=== PATIENT | male | born 1930 | race Caucasian/White ===

== ENCOUNTER 2017-11-05 12:40 | Inpatient (IN) | payer OTHER, MEDICARE ==
--- NOTE | 2017-11-05 13:19 | PDOC ---
History of Present Illness - General History Source: Family Exam Limitations: Dementia - History of Present Illness Timing/Duration: other Associated Symptoms: reports: cough, fever/chills, loss of appetite. denies: nausea/vomiting <Brendon Hopper - Last Filed: 11/05/17 15:41> <Amina Pina - Last Filed: 11/05/17 15:56> - General Chief Complaint: Loss of Appetite Stated Complaint: WEAKNESS Time Seen by Provider: 11/05/17 12:45 Past History - Past Medical History Cardiac Disorders: Yes (triple bypass) CVA: Yes (right sided residule weakness) COPD: No Diabetes: Yes HTN: Yes Hypercholesterolemia: Yes - Surgical History Cardiac Surgery: Yes (triple bypass) - Immunization History Immunization Up to Date: Yes - Suicide/Smoking/Psychosocial Hx Smoking History: Former smoker Have you smoked in the past 12 months: No Information on smoking cessation initiated: No Hx Alcohol Use: No Drug/Substance Use Hx: No <Brendon Hopper - Last Filed: 11/05/17 15:41> <Amina Pina - Last Filed: 11/05/17 15:56> - Past Medical History Allergies/Adverse Reactions: Allergies Allergy/AdvReac Type Severity Reaction Status Date / Time No Known Allergies Allergy Verified 11/05/17 12:45 Home Medications: Ambulatory Orders Aspirin [ASA -] 81 mg PO DAILY 11/05/17 Finasteride [Proscar -] 5 mg PO DAILY 11/05/17 Levofloxacin [Levaquin] 500 mg PO DAILY 11/05/17 Metformin HCl 500 mg PO BID 11/05/17 Metoprolol Tartrate 25 mg PO BID 11/05/17 Simvastatin 40 mg PO HS 11/05/17 Tamsulosin HCl 0.4 mg PO DAILY 11/05/17 Review of Systems - Review of Systems Able to Perform ROS?: No Is the patient limited Hebrew proficient: Yes Respiratory: Yes: Cough <Brendon Hopper - Last Filed: 11/05/17 15:41> *Physical Exam - Vital Signs Last Vital Signs Temp Pulse Resp BP Pulse Ox 97.7 F 94 H 20 110/59 93 L 11/05/17 12:45 11/05/17 12:45 11/05/17 12:45 11/05/17 12:45 11/05/17 12:45 - Physical Exam General Appearance: Yes: Appropriately Dressed. No: Apparent Distress HEENT: positive: Normal Voice Neck: positive: Supple Respiratory/Chest: positive: Lungs Clear, Normal Breath Sounds. negative: Respiratory Distress Cardiovascular: positive: Regular Rate, S1, S2 Gastrointestinal/Abdominal: positive: Soft. negative: Tender Extremity: negative: Pedal Edema Integumentary: positive: Dry, Warm, Other (stage 2 ulcer to gluteal cleft w/ surrounding erythema) Neurologic: positive: Alert, Normal Mood/Affect, Other (R sided weakness ( baseline since CVA), L sided strength intact) <Helene HopperMadelineCrystal - Last Filed: 11/05/17 15:41> - Vital Signs Last Vital Signs Temp Pulse Resp BP Pulse Ox 99.1 F 94 H 20 110/59 93 L 11/05/17 14:08 11/05/17 12:45 11/05/17 12:45 11/05/17 12:45 11/05/17 12:45 <Amina Pina - Last Filed: 11/05/17 15:56> ED Treatment Course - LABORATORY CBC & Chemistry Diagram: 11/05/17 13:15 11/05/17 13:15 - RADIOLOGY Radiology Studies Ordered: Category Date Time Status CHEST X-RAY PORTABLE* [RAD] Stat Radiology 11/05/17 13:14 Ordered <Brendon Hopper - Last Filed: 11/05/17 15:41> - LABORATORY CBC & Chemistry Diagram: 11/05/17 13:15 11/05/17 13:15 - ADDITIONAL ORDERS Additional order review: Laboratory Results 11/05/17 11/05/17 13:16 13:15 Sodium 130 L Potassium 5.8 H Chloride 97 L Carbon Dioxide 22 Anion Gap 11 BUN 99 H Creatinine 2.9 H Creat Clearance w eGFR 20.79 Random Glucose 190 H Calcium 9.9 Total Bilirubin 0.6 AST 10 L ALT 15 Alkaline Phosphatase 102 Creatine Kinase 21 L Troponin I < 0.02 Total Protein 8.1 Albumin 3.2 L Lipase 436 H Urine Color Dkyellow Urine Appearance Turbid Urine pH 5.0 Ur Specific Daniel 1.010 Urine Protein 2+ H Urine Glucose (UA) Negative Urine Ketones Negative Urine Blood 2+ H Urine Nitrite Negative Urine Bilirubin Negative Urine Urobilinogen Negative Ur Leukocyte Esterase 3+ H Urine WBC (Auto) 1760 Urine RBC (Auto) 13 11/05/17 13:15 RBC 5.43 MCV 78.9 L MCHC 32.6 RDW 16.7 H MPV 9.6 Neutrophils % 70.5 Lymphocytes % 19.3 Monocytes % 7.8 Eosinophils % 1.6 Basophils % 0.8 - Medications Given in the ED: ED Medications Discontinued Medications Generic Name Dose Route Start Last Admin Trade Name Christophe PRN Reason Stop Dose Admin Dextrose 25 gm 11/05/17 15:03 11/05/17 15:35 D50w (Vial) - IVPUSH 11/05/17 15:04 25 gm NOW ONE Administration Sodium Chloride 500 mls @ 500 mls/hr 11/05/17 13:21 11/05/17 14:20 Normal Saline - IV 11/05/17 14:20 500 mls/hr ASDIR STA Administration Sodium Chloride 500 mls @ 500 mls/hr 11/05/17 14:20 11/05/17 15:35 Normal Saline - IV 11/05/17 15:19 500 mls/hr ASDIR STA Administration Clindamycin Phosphate 600 mg in 50 mls @ 100 mls/hr 11/05/17 14:21 11/05/17 15:36 Cleocin 600 Mg Premix Ivpb - IVPB 11/05/17 14:50 Not Given ONCE ONE Ceftriaxone Sodium 1 gm/ 50 mls @ 100 mls/hr 11/05/17 14:56 11/05/17 15:35 Dextrose IVPB 11/05/17 15:25 100 mls/hr ONCE ONE Administration Sodium Bicarbonate 50 meq 11/05/17 15:04 11/05/17 15:36 Sodium Bicarbonate 8.4% - IV 11/05/17 15:05 50 meq ONCE ONE Administration Sodium Polystyrene Sulfonate 30 gm 11/05/17 14:20 11/05/17 15:00 Kayexalate - PO 11/05/17 14:21 30 gm ONCE ONE Administration <Amina Pina - Last Filed: 11/05/17 15:56> Medical Decision Making - Medical Decision Making 11/05/17 13:14 87-year-old male history of CVA w/ L sided weakness and nonverbal, hypertension , hyperlipidemia, DM, and CABG, sacral ulcer, brought in by daughter for anorexia. As per daughter, pt resides alone with 24-hour aids who has noticed a gradual decline in pt's appetite. States since Wednesday, patient has not eaten or drank anything. Daughter also noticed slight cough at home. Patient unable to give much history See exam Anorexia Pt unable to give hx 2/2 CVA/nonverbal R/o cardiac vs infection (cellulitis given surrounding erythema to sacral ulcer vs PNA given cough vs uti) vs metabolic, less likely neuro -IVF -ekg -cxr -labs/ua -anticipate admission 11/05/17 13:20 11/05/17 14:21 WBC 15. Source unclear at this time. Pending UA and Chest X-Ray. ARF on labs w / Cr of 2.2 and K of 5.8. No h/o renal disease per family, no old cr on file to compare. EKG unremarkable as d/w ED attg. Recommends giving hyper K cocktail except for calcium. Will admit at this time 11/05/17 15:05 Positive UTI on labs, will treat. No prior sensitivities on file. Ucx sent off today. CXR negative. Case d/w Dr Varela and pt admitted <Brendon Hopper - Last Filed: 11/05/17 15:41> *DC/Admit/Observation/Transfer - Discharge Dispostion Admit: Yes <Brendon Hopper - Last Filed: 11/05/17 15:41> - Attestations Physician Attestion: I reviewed the case with the mid-level practitioner and agree with the mid- level practitioner's assessment, diagnosis and disposition. <Amina Pina - Last Filed: 11/05/17 15:56> Diagnosis at time of Disposition: Dehydration, Hyperkalemia ARF (acute renal failure) Qualifiers: Acute renal failure type: unspecified Qualified Code(s): N17.9 - Acute kidney failure, unspecified UTI (urinary tract infection) Qualifiers: Urinary tract infection type: acute cystitis Hematuria presence: without hematuria Qualified Code(s): N30.00 - Acute cystitis without hematuria - Discharge Dispostion Condition at time of disposition: Fair
[2017-11-05] MEDS ORDERED: SODIUM CHLORIDE 500 ML IV STA ×2 (13:21→14:20)
[2017-11-05 13:32] LABS: BASO % 0.8 % (0-2.0); EOS % 1.6 % (0-4.5); HEMATOCRIT 42.8 % (35.4-49); LYMPH % 19.3 % (8-40); MCH 25.7 pg (25.7-33.7); MCHC 32.6 g/dl (32.0-35.9); MEAN CELL VOLUME 78.9 fl (80-96); MEAN PLT VOLUME 9.6 fl (7.5-11.1); MONO % 7.8 % (3.8-10.2); NEUT % 70.5 % (42.8-82.8); PLATELET COUNT 334 K/MM3 (134-434); RBC 5.43 M/mm3 (4.00-5.60); RDW 16.7 % (11.9-15.9)
[2017-11-05 14:02] LABS: ALBUMIN 3.2 g/dl (3.4-5.0); ALK PHOS 102 U/L (45-117); ANION GAP 11 (8-16); BILIRUBIN,TOTAL 0.6 mg/dL (0.2-1.0); BLOOD UREA NITROGEN 99 mg/dL (7-18); CALCIUM 9.9 mg/dL (8.5-10.1); CHLORIDE 97 mmol/L (98-107); CO2 22 mmol/L (21-32); CREATININE 2.9 mg/dL (0.7-1.3); GLUCOSE,RANDOM 190 mg/dL (74-106); POTASSIUM 5.8 mmol/L (3.5-5.1); SGOT/AST 10 U/L (15-37); SGPT/ALT 15 U/L (12-78); SODIUM 130 mmol/L (136-145); TOT PROT 8.1 g/dl (6.4-8.2)
[2017-11-05 14:04] LABS: LIPASE 436 U/L (73-393)
[2017-11-05] MEDS ORDERED: SODIUM POLYSTYRENE SULFONATE 15 GM/60 ML BOTTLE PO ONE (14:20)
[2017-11-05] MEDS ORDERED: CLINDAMYCIN 600MG PREMIX IVPB 600 MG/50 ML BAG IVPB ONE (14:21)
[2017-11-05 14:48] LABS: URINE APPEARANCE TURBID; URINE BILIRUBIN NEGATIVE (NEGATIVE); URINE BLOOD 2+ (NEGATIVE); URINE COLOR DKYELLOW; URINE GLUCOSE (UA) NEGATIVE (NEGATIVE); URINE KETONE NEGATIVE (NEGATIVE); URINE NITRITE NEGATIVE (NEGATIVE); URINE UROBILINOGEN NEGATIVE mg/dL (0.2-1.0)
[2017-11-05 14:51] LABS: URINE LEUK ESTERASE 3+ (NEGATIVE); URINE PROTEIN 2+ (NEGATIVE)
[2017-11-05] MEDS ORDERED: CEFTRIAXONE 1 GM in DEXTROSE 5%-WATER - 50 ML IVPB ONE (14:56)
[2017-11-05] MEDS ORDERED: CEFEPIME 1 GM/100 ML BAG IVPB ONE (15:00)
[2017-11-05] MEDS ORDERED: INSULIN REGULAR HUMAN 100 UNITS/ML *VIAL SQ ONE (15:01)
[2017-11-05] MEDS ORDERED: SODIUM BICARBONATE 8.4% - 50 ML ONE (15:02)
[2017-11-05] MEDS ORDERED: DEXTROSE 50%-WATER - 25 GM/50 ML VIAL ONE (15:02)
[2017-11-05] MEDS ORDERED: SODIUM POLYSTYRENE SULFONATE 15 GM/60 ML BOTTLE ONE (15:02)
[2017-11-05] MEDS ORDERED: DEXTROSE 50%-WATER - 25 GM/50 ML VIAL IVPUSH ONE (15:03)
[2017-11-05] MEDS ORDERED: INSULIN REGULAR HUMAN 100 UNITS/ML *VIAL ONE (15:03)
[2017-11-05] MEDS ORDERED: SODIUM BICARBONATE 8.4% 50 MEQ/50 ML VIAL IV ONE (15:04)
--- NOTE | 2017-11-05 15:24 | HP ---
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 Daughter states pt has stopped eating for 1 week and has had increased fatigue and weakness. Reports weight loss >20lbs over the last few months. She notices him to be disoriented also. Daughter spoke to PCP and levaquin was ordered to treat UTI. However, pt has not taken any doses and or any of his other home medications. Daughter denies any diarrhea, rash, fever/chills, or vomiting. Stage 2 sacral pressure ulcer was identified in ED. 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) Cardiovascular: Yes: CAD, HTN, Hyperlipdemia Renal/: Yes: BPH Musculoskeletal: Yes: Hemiparesis (right) Endocrine: Yes: Diabetes Mellitus - Past Surgical History Past Surgical History: Yes: CABG (2004) - Advance Directives Advance Directives: Yes: DNR (DNI) - Smoking History Smoking history: Former smoker Have you smoked in the past 12 months: No - Alcohol/Substance Use Hx Alcohol Use: No History of Substance Use: reports: None - Social History Usual Living Arrangement: Yes: Alone (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) ADL: Support Services History of Recent Travel: No Home Medications - Allergies Allergies/Adverse Reactions: Allergies Allergy/AdvReac Type Severity Reaction Status Date / Time No Known Allergies Allergy Verified 11/05/17 12:45 - Home Medications Home Medications: Ambulatory Orders Aspirin [ASA -] 81 mg PO DAILY 11/05/17 Finasteride [Proscar -] 5 mg PO DAILY 11/05/17 Levofloxacin [Levaquin] 500 mg PO DAILY 11/05/17 Metformin HCl 500 mg PO BID 11/05/17 Metoprolol Tartrate 25 mg PO BID 11/05/17 Simvastatin 40 mg PO HS 11/05/17 Tamsulosin HCl 0.4 mg PO DAILY 11/05/17 Family Disease History - Family Disease History Family History: Denies Review of Systems Unable to obtain ROS, reason: as per hpi Physical Examination Vital Signs: Vital Signs Temperature 99.1 F 11/05/17 14:08 Pulse Rate 94 H 11/05/17 12:45 Respiratory Rate 20 11/05/17 12:45 Blood Pressure 110/59 11/05/17 12:45 O2 Sat by Pulse Oximetry (%) 93 L 11/05/17 12:45 Constitutional: Yes: No Distress, Calm Cardiovascular: Yes: Regular Rate and Rhythm. No: Gallop, Murmur, Rub Respiratory: Yes: WNL, Regular, CTA Bilaterally, Diminished. No: Rales, Rhonchi , SOB, Stridor, Tachypnea, Wheezes Gastrointestinal: Yes: WNL, Normal Bowel Sounds, Soft. No: Distention, Tenderness Renal/: Yes: Incontinence Edema: No Integumentary: Yes: Pressure Ulcer (stage 2, sacrum) Neurological: Yes: Alert, Aphasia, Confusion, Weakness Psychiatric: Yes: Alert Labs: CBC, BMP 11/05/17 13:15 11/05/17 13:15 Imaging - Results Chest X-ray: Report Reviewed Cat Scan: Report Reviewed Problem List - Problems (1) Sepsis Assessment/Plan: afebrile, tachycardic, hypotensive, leukocytosis, ua positive chest xray neg Ceftriaxone started blood cultures ordered IVF tele monitoring adequate glycemic control Code(s): A41.9 - SEPSIS, UNSPECIFIED ORGANISM Qualifiers: Sepsis type: sepsis due to unspecified organism Qualified Code(s): A41.9 - Sepsis, unspecified organism (2) UTI (urinary tract infection) Assessment/Plan: UA positive ceftriaxone started ivf Code(s): N39.0 - URINARY TRACT INFECTION, SITE NOT SPECIFIED Qualifiers: Urinary tract infection type: acute cystitis Hematuria presence: without hematuria Qualified Code(s): N30.00 - Acute cystitis without hematuria (3) Acute metabolic encephalopathy Assessment/Plan: secondary to UTI/sepsis will treat underlying illness and monitor for improvement Code(s): G93.41 - METABOLIC ENCEPHALOPATHY (4) Hyponatremia Assessment/Plan: secondary to poor po intake x 1 week monitor bmp Code(s): E87.1 - HYPO-OSMOLALITY AND HYPONATREMIA (5) Leukocytosis Assessment/Plan: secondary to uti/sepsis possibly falsely elevated due to dehydration Code(s): D72.829 - ELEVATED WHITE BLOOD CELL COUNT, UNSPECIFIED (6) DM (diabetes mellitus) Assessment/Plan: stable on metformin at home, hold in the setting of rito, inability to take po bgm insulin sliding scale hga1c ordered Code(s): E11.9 - TYPE 2 DIABETES MELLITUS WITHOUT COMPLICATIONS Qualifiers: Diabetes mellitus type: type 2 Diabetes mellitus termite control 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 insulin use: without termite control technician use (7) Dehydration Assessment/Plan: secondary to poor po intake ivf Code(s): E86.0 - DEHYDRATION (8) RITO (acute kidney injury) Assessment/Plan: secondary to sepsis, dehydration IVF Urine Na/Creatinine ordered monitor Code(s): N17.9 - ACUTE KIDNEY FAILURE, UNSPECIFIED (9) Hyperkalemia Assessment/Plan: K5.8, peaked t wave on ekg, secondary to rito treated in ED with insulin, bicarb, kayex will monitor Code(s): E87.5 - HYPERKALEMIA (10) BPH (benign prostatic hyperplasia) Assessment/Plan: stable on flomax and finasteride at home will restart once taking po Code(s): N40.0 - BENIGN PROSTATIC HYPERPLASIA WITHOUT LOWER URINRY TRACT SYMP (11) Hemiparesis Assessment/Plan: right sided, chronic no acute changes, head ct neg PT as tolerated Code(s): G81.90 - HEMIPLEGIA, UNSPECIFIED AFFECTING UNSPECIFIED SIDE Qualifiers: Cerebrovascular disease type: nontraumatic intracerebral hemorrhage (12) CAD (coronary artery disease) Assessment/Plan: s/p CABG-2004 aspirin, atorvastatin at home restart po meds once speech eval and when pt takes po Code(s): I25.10 - ATHSCL HEART DISEASE OF [place] CORONARY ARTERY W/O ANG PCTRS Qualifiers: Coronary Disease-Associated Artery/Lesion type: bypass graft [place] vs. transplanted heart: [place] heart Associated angina: without angina Qualified Code(s): I25.810 - Atherosclerosis of coronary artery bypass graft(s) without angina pectoris (13) HTN (hypertension) Assessment/Plan: stable on metoprolol and amlodipine at home hold meds in the setting of sepsis Code(s): I10 - ESSENTIAL (PRIMARY) HYPERTENSION Qualifiers: Hypertension type: essential hypertension Qualified Code(s): I10 - Essential (primary) hypertension
[2017-11-05] MEDS ORDERED: INSULIN REGULAR HUMAN 100 UNITS/ML *VIAL IVPUSH ONE (15:40)
[2017-11-05] MEDS ORDERED: SODIUM CHLORIDE 1,000 ML IV SCH (16:30)
[2017-11-05] MEDS: INSULIN SLIDING SCALE (NOVOLOG) 1 VIAL SQ SCH (18:10)
[2017-11-05] MEDS: SODIUM CHLORIDE 1,000 ML IV SCH (18:11)
[2017-11-05] MEDS ORDERED: METOPROLOL TARTRATE 50 MG TABLET (FP) PO SCH (22:00)
[2017-11-05] MEDS: HEPARIN NA (PORCINE) 5,000 UNITS/ML 1ML VIAL SQ SCH (23:11)
[2017-11-06] MEDS: INSULIN SLIDING SCALE (NOVOLOG) 1 VIAL SQ SCH ×3 (06:35→16:44)
[2017-11-06] MEDS: SODIUM CHLORIDE 1,000 ML IV SCH ×2 (06:35→17:12)
[2017-11-06 08:03] LABS: BASO % 0.4 % (0-2.0); EOS % 2.6 % (0-4.5); HEMATOCRIT 39.8 % (35.4-49); HEMOGLOBIN 12.8 GM/dL (11.7-16.9); LYMPH % 14.3 % (8-40); MCH 25.4 pg (25.7-33.7); MCHC 32.1 g/dl (32.0-35.9); MEAN CELL VOLUME 79.3 fl (80-96); MEAN PLT VOLUME 9.8 fl (7.5-11.1); MONO % 7.5 % (3.8-10.2); NEUT % 75.2 % (42.8-82.8); PLATELET COUNT 248 K/MM3 (134-434); RBC 5.02 M/mm3 (4.00-5.60); RDW 16.5 % (11.9-15.9); WHITE BLOOD COUNT 11.7 K/mm3 (4.0-10.0)
[2017-11-06 08:22] LABS: ALBUMIN 2.9 g/dl (3.4-5.0); ANION GAP 9 (8-16); BLOOD UREA NITROGEN 83 mg/dL (7-18); CALCIUM 8.6 mg/dL (8.5-10.1); CHLORIDE 106 mmol/L (98-107); CO2 27 mmol/L (21-32); GLUCOSE,RANDOM 101 mg/dL (74-106); MAGNESIUM 2.4 mg/dL (1.8-2.4); POTASSIUM 4.6 mmol/L (3.5-5.1); SGOT/AST 9 U/L (15-37); SODIUM 142 mmol/L (136-145)
[2017-11-06 08:25] LABS: ALK PHOS 86 U/L (45-117); BILIRUBIN,TOTAL 0.4 mg/dL (0.2-1.0); CHOLESTEROL 172 mg/dL (50-200); CREATININE 2.5 mg/dL (0.7-1.3); HDL CHOLESTEROL 29 mg/dL (40-60); LDL CHOLESTEROL (ONLY SJRH) 106 mg/dL (5-100); PHOSPHOROUS 4.8 mg/dL (2.5-4.9); SGPT/ALT 12 U/L (12-78); TOT PROT 6.5 g/dl (6.4-8.2); TRIGLYCERIDES 210 mg/dL (35-160)
[2017-11-06] MEDS ORDERED: TAMSULOSIN HCL 0.4 MG CAP.ER.24H (FP) PO SCH (08:30)
--- NOTE | 2017-11-06 08:37 | PN ---
Progress Note, Physician Chief Complaint: ID Full note dictated Alert able to answer questions No complaints - Current Medication List Current Medications: Active Medications Heparin Sodium (Porcine) (Heparin -) 5,000 unit SQ BID [facility] Last Admin: 11/05/17 23:11 Dose: 5,000 unit CEFTRIAXONE 1 G/50 ML PREMIX (Ceftriaxone 1 Gm-D5w Bag) 50 mls @ 100 mls/hr IVPB DAILY EJ Sodium Chloride (Normal Saline -) 1,000 mls @ 83 mls/hr IV ASDIR [facility] Last Admin: 11/06/17 06:35 Dose: 83 mls/hr Insulin Aspart (Novolog Vial Sliding Scale -) 1 vial SQ TIDAC [facility] PRN Reason: Protocol Last Admin: 11/06/17 06:35 Dose: Not Given - Objective Vital Signs: Vital Signs Temperature 97.7 F 11/06/17 06:29 Pulse Rate 80 11/06/17 06:29 Respiratory Rate 18 11/06/17 06:29 Blood Pressure 99/42 11/06/17 06:29 O2 Sat by Pulse Oximetry (%) 99 11/05/17 21:00 Constitutional: Yes: No Distress Neck: Yes: WNL, Supple Cardiovascular: Yes: Regular Rate and Rhythm, S1, S2. No: Murmur Respiratory: Yes: WNL, Regular, CTA Bilaterally Gastrointestinal: Yes: Soft. 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: without local intermodal truck driver use (4) UTI (urinary tract infection) Code(s): N39.0 - URINARY TRACT INFECTION, SITE NOT SPECIFIED Qualifiers: Urinary tract infection type: acute cystitis Hematuria presence: without hematuria Qualified Code(s): N30.00 - Acute cystitis without hematuria Assessment/Plan Microbiology Laboratory Tests 11/05/17 11/05/17 11/05/17 13:15 13:15 13:16 WBC 15.0 H Hgb 14.0 Plt Count 334 BUN 99 H Creatinine 2.9 H Creat Clearance w eGFR 20.79 Total Bilirubin 0.6 AST 10 L ALT 15 Alkaline Phosphatase 102 Ur Leukocyte Esterase 3+ H Urine WBC (Auto) 1760 Urine RBC (Auto) 13 11/06/17 06:20 WBC Hgb Plt Count BUN 83 H Creatinine 2.5 H Creat Clearance w eGFR 24.67 Total Bilirubin AST ALT Alkaline Phosphatase Ur Leukocyte Esterase Urine WBC (Auto) Urine RBC (Auto) Assessment Altered mental status UTI DM AMANDA Plan Continue Ceftriaxone as ordered as he appears stable Await c/s Yazan ZAFAR
[2017-11-06] MEDS: CEFTRIAXONE 1 G/50 ML PREMIX 50 ML IVPB SCH (09:29)
[2017-11-06] MEDS: HEPARIN NA (PORCINE) 5,000 UNITS/ML 1ML VIAL SQ SCH ×2 (09:29→22:20)
[2017-11-06] MEDS ORDERED: ASPIRIN 81 MG CHEWABLE TABLETS PO SCH (10:00)
[2017-11-06] MEDS ORDERED: FINASTERIDE 5 MG TABLET (FP) PO SCH (10:00)
--- NOTE | 2017-11-06 10:41 | PN ---
Progress Note, Physician Chief Complaint: Alert not in distress - Current Medication List Current Medications: Active Medications Heparin Sodium (Porcine) (Heparin -) 5,000 unit SQ BID [facility] Last Admin: 11/06/17 09:29 Dose: 5,000 unit CEFTRIAXONE 1 G/50 ML PREMIX (Ceftriaxone 1 Gm-D5w Bag) 50 mls @ 100 mls/hr IVPB DAILY [facility] Last Admin: 11/06/17 09:29 Dose: 100 mls/hr Sodium Chloride (Normal Saline -) 1,000 mls @ 83 mls/hr IV ASDIR [facility] Last Admin: 11/06/17 06:35 Dose: 83 mls/hr Insulin Aspart (Novolog Vial Sliding Scale -) 1 vial SQ TIDAC [facility] PRN Reason: Protocol Last Admin: 11/06/17 06:35 Dose: Not Given - Objective Vital Signs: Vital Signs Temperature 97.7 F 11/06/17 06:29 Pulse Rate 80 11/06/17 06:29 Respiratory Rate 18 11/06/17 06:29 Blood Pressure 99/42 11/06/17 06:29 O2 Sat by Pulse Oximetry (%) 99 11/05/17 21:00 Elderly M not in distress HEENT: MM Dry , anemia' NECK: No JVD No Bruit CHEST: CTA B/L CVS: S1S2 R ABD: Soft No distention, non tender BS + EXT:No Edema feet, Decubitus ulcer. EXECUTIVE ASSISTANT TO PRESIDENT: minimally communicative, Rt sided weakness Labs: CBC, BMP 11/06/17 06:20 11/06/17 06:20 Problem List - Problems (1) AMANDA (acute kidney injury) Assessment/Plan: Due to Dehydration F/U BMP Code(s): N17.9 - ACUTE KIDNEY FAILURE, UNSPECIFIED (2) HTN (hypertension) Assessment/Plan: BP Meds are on Hold Code(s): I10 - ESSENTIAL (PRIMARY) HYPERTENSION Qualifiers: Hypertension type: essential hypertension Qualified Code(s): I10 - Essential (primary) hypertension (3) CAD (coronary artery disease) Assessment/Plan: No active issue Code(s): I25.10 - ATHSCL HEART DISEASE OF [place] CORONARY ARTERY W/O ANG PCTRS Qualifiers: Coronary Disease-Associated Artery/Lesion type: bypass graft [place] vs. transplanted heart: [place] heart Associated angina: without angina Qualified Code(s): I25.810 - Atherosclerosis of coronary artery bypass graft(s) without angina pectoris (4) DM (diabetes mellitus) Assessment/Plan: cont Correction dose insulin Code(s): E11.9 - TYPE 2 DIABETES MELLITUS WITHOUT COMPLICATIONS Qualifiers: Diabetes mellitus type: type 2 Diabetes mellitus termite control representative insulin use: without termite control representative use (5) UTI (urinary tract infection) Assessment/Plan: Responding to Ceftriaxone F/U Culture results Code(s): N39.0 - URINARY TRACT INFECTION, SITE NOT SPECIFIED Qualifiers: Urinary tract infection type: acute cystitis Hematuria presence: without hematuria Qualified Code(s): N30.00 - Acute cystitis without hematuria (6) Dehydration Assessment/Plan: F/U BMP Code(s): E86.0 - DEHYDRATION
--- NOTE | 2017-11-06 12:15 | EKG ---
Test Reason : Blood Pressure : / mmHG Vent. Rate : 092 BPM Atrial Rate : 092 BPM P-R Int : 162 ms QRS Dur : 086 ms QT Int : 332 ms P-R-T Axes : 065 -58 076 degrees QTc Int : 410 ms POOR DATA QUALITY, INTERPRETATION MAY BE ADVERSELY AFFECTED NORMAL SINUS RHYTHM POSSIBLE LEFT ATRIAL ENLARGEMENT LEFT AXIS DEVIATION POSSIBLE ANTERIOR INFARCT (CITED ON OR BEFORE 25-NOV-2005) ABNORMAL ECG WHEN COMPARED WITH ECG OF 25-NOV-2005 09:57, QUESTIONABLE CHANGE IN INITIAL FORCES OF ANTEROSEPTAL LEADS Confirmed by GUERO SALINAS MD ([id number]) on 11/06/2017 12:14:50 PM Referred By: Confirmed By:GUERO SALINAS MD
[2017-11-06] MEDS ORDERED: PNEUMOC 13-VAL CONJ-DIP CRM/PF 0.5 ML DISP.SYRIN IM ONE (14:30)
--- NOTE | 2017-11-06 14:41 | CONS ---
DATE OF CONSULTATION: DATE OF DICTATION: 11/06/2017 HISTORY OF PRESENT ILLNESS: This is an 87-year-old male with several comorbidities, including hypertension, diabetes, hyperlipidemia, coronary artery disease and a hemorrhagic stroke with residual right-sided hemiparesis, who is brought now by his family because of poor oral intake along with confusion and generalized weakness. He had apparently stopped eating about a week ago and has been progressively weak since that time. There is a preceding history of over a 20-pound weight loss over several months. Apparently, a discussion ensued with the patient's primary medical doctor and Levaquin was prescribed to treat a urinary tract infection. Apparently, the patient did not take any doses of the medication. He was empirically treated with ceftriaxone after his white count here was noted to be elevated. He denied any fever or chills and was noted to have a sacral pressure ulcer on admission. PAST MEDICAL HISTORY: As noted above. Additional history includes BPH. MEDICATIONS AT HOME: Aspirin, Proscar, metoprolol, simvastatin, tamsulosin. ALLERGIES: None known. SOCIAL HISTORY: Former smoker. No history of alcohol. Patient reports living with his family. FAMILY HISTORY: Reviewed, noncontributory. REVIEW OF SYSTEMS: Respiratory: No cough, shortness of breath, sputum production. Cardiac: No chest pain, palpitations, syncope. Gastrointestinal: Positive 20-pound weight loss, recent loss of appetite. Denies abdominal pain, change in bowel habits, blood per rectum. Genitourinary: History of BPH. No dysuria, hematuria, frequency. PHYSICAL EXAMINATION:General: He was an elderly frail man weighing 125 pounds who appeared in no acute distress and able to answer questions. Vital Signs: His temperature was 97.7, his pulse 80, blood pressure 100/42, respirations 20, T-max 99.1. Neck: Supple without adenopathy. Lungs: Clear to percussion and auscultation. Heart: S1, S2, regular rhythm without audible murmur. Abdomen: Soft. Positive bowel sounds. No distention, tenderness, hepatosplenomegaly. Extremities: No clubbing, cyanosis or edema. Skin: Revealed a stage II pressure ulcer of the sacral area. LABORATORY DATA: White count was 15.0, hemoglobin 14, platelets 344. BUN 99, creatinine 2.9. Liver enzymes within normal limits. Lactic acid 1.0. Urinalysis: Leukocyte esterase 3+, 1700 white cells, 1300 . Two sets of blood cultures currently pending. Urine culture pending. Chest x-ray shows no acute infiltrate seen and CAT scan of the head shows no gross intracranial pathology. ASSESSMENT: An 87-year-old male with multiple comorbidities, including diabetes mellitus, presents with weight loss, loss of appetite, altered mental status and findings supportive of a urinary tract infection. Alteration of mental status may be on the basis of urinary tract infection. He is found to be in acute renal failure and thus his altered status may also be on the basis of metabolic encephalopathy. RECOMMENDATIONS: He is currently on ceftriaxone and appears stable with no fever and the white count coming down, so I will continue this for now pending blood and urine cultures. Consider renal sonogram. SALVADOR UREÑA M.D. ANASTASIYA/[id number]
[2017-11-06] MEDS: ACETAMINOPHEN 500 MG TABLET (FP) PO PRN (17:16)
[2017-11-07] MEDS: INSULIN SLIDING SCALE (NOVOLOG) 1 VIAL SQ SCH ×3 (06:02→16:33)
[2017-11-07] MEDS: HEPARIN NA (PORCINE) 5,000 UNITS/ML 1ML VIAL SQ SCH ×2 (09:43→22:13)
[2017-11-07] MEDS: CEFTRIAXONE 1 G/50 ML PREMIX 50 ML IVPB SCH (09:43)
--- NOTE | 2017-11-07 13:14 | PN ---
Progress Note, Physician Chief Complaint: Alert not in distress - Current Medication List Current Medications: Active Medications Acetaminophen (Tylenol -) 500 mg PO Q6H PRN PRN Reason: FEVER Last Admin: 11/06/17 17:16 Dose: 500 mg Heparin Sodium (Porcine) (Heparin -) 5,000 unit SQ BID REPLACED BY [facility] Last Admin: 11/07/17 09:43 Dose: 5,000 unit CEFTRIAXONE 1 G/50 ML PREMIX (Ceftriaxone 1 Gm-D5w Bag) 50 mls @ 100 mls/hr IVPB DAILY REPLACED BY [facility] Last Admin: 11/07/17 09:43 Dose: 100 mls/hr Sodium Chloride (Normal Saline -) 1,000 mls @ 83 mls/hr IV ASDIR REPLACED BY [facility] Last Admin: 11/06/17 17:12 Dose: Not Given Insulin Aspart (Novolog Vial Sliding Scale -) 1 vial SQ TIDAC REPLACED BY [facility] PRN Reason: Protocol Last Admin: 11/07/17 11:13 Dose: 1 units Non-Formulary Medication (Simvastatin [Simvastatin]) 40 mg PO HS REPLACED BY [facility] - Objective Vital Signs: Vital Signs Temperature 97.7 F 11/07/17 09:00 Pulse Rate 79 11/07/17 09:00 Respiratory Rate 18 11/07/17 09:00 Blood Pressure 109/62 11/07/17 09:00 O2 Sat by Pulse Oximetry (%) 99 11/07/17 09:00 Elderly M not in distress HEENT: MM Dry , anemia' NECK: No JVD No Bruit CHEST: CTA B/L CVS: S1S2 R ABD: Soft No distention, non tender BS + EXT:No Edema feet, Decubitus ulcer. TRAVEL ATTENDANTS: minimally communicative, Rt sided weakness Labs: CBC, BMP 11/06/17 06:20 11/06/17 06:20 Problem List - Problems (1) AMANDA (acute kidney injury) Assessment/Plan: Due to Dehydration F/U BMP Code(s): N17.9 - ACUTE KIDNEY FAILURE, UNSPECIFIED (2) HTN (hypertension) Assessment/Plan: BP Meds are on Hold Code(s): I10 - ESSENTIAL (PRIMARY) HYPERTENSION Qualifiers: Hypertension type: essential hypertension Qualified Code(s): I10 - Essential (primary) hypertension (3) CAD (coronary artery disease) Assessment/Plan: No active issue Qualifiers: Coronary Disease-Associated Artery/Lesion type: bypass graft [place] vs. transplanted heart: [place] heart Associated angina: without angina Qualified Code(s): I25.810 - Atherosclerosis of coronary artery bypass graft(s) without angina pectoris (4) DM (diabetes mellitus) Assessment/Plan: cont Correction dose insulin Code(s): E11.9 - TYPE 2 DIABETES MELLITUS WITHOUT COMPLICATIONS Qualifiers: Diabetes mellitus type: type 2 Diabetes mellitus predatory animal exterminator insulin use: without predatory animal exterminator use (5) UTI (urinary tract infection) Assessment/Plan: Responding to Ceftriaxone F/U Culture results Code(s): N39.0 - URINARY TRACT INFECTION, SITE NOT SPECIFIED Qualifiers: Urinary tract infection type: acute cystitis Hematuria presence: without hematuria Qualified Code(s): N30.00 - Acute cystitis without hematuria (6) Dehydration Assessment/Plan: F/U BMP Code(s): E86.0 - DEHYDRATION
[2017-11-07 15:33] LABS: BASO % 0.3 % (0-2.0); EOS % 1.4 % (0-4.5); HEMATOCRIT 36.7 % (35.4-49); HEMOGLOBIN 11.8 GM/dL (11.7-16.9); MCHC 32.3 g/dl (32.0-35.9); MEAN CELL VOLUME 80.5 fl (80-96); MEAN PLT VOLUME 9.8 fl (7.5-11.1); MONO % 7.1 % (3.8-10.2); NEUT % 76.2 % (42.8-82.8); PLATELET COUNT 238 K/MM3 (134-434); RBC 4.55 M/mm3 (4.00-5.60); WHITE BLOOD COUNT 10.6 K/mm3 (4.0-10.0)
[2017-11-07 15:45] LABS: ANION GAP 10 (8-16); BLOOD UREA NITROGEN 73 mg/dL (7-18); CALCIUM 8.2 mg/dL (8.5-10.1); CHLORIDE 111 mmol/L (98-107); CO2 24 mmol/L (21-32); CREATININE 2.4 mg/dL (0.7-1.3); GLUCOSE,RANDOM 124 mg/dL (74-106); POTASSIUM 4.1 mmol/L (3.5-5.1); SODIUM 145 mmol/L (136-145)
[2017-11-07] MEDS ORDERED: INSULIN (NOVOLOG) ASPART 100 UNITS/ML 10ML VIAL ONE (17:46)
[2017-11-07] MEDS: ATORVASTATIN CA 20 MG TABLET (FP) PO SCH (22:13)
[2017-11-07] MEDS: SODIUM CHLORIDE 1,000 ML IV SCH (22:14)
[2017-11-08] MEDS: INSULIN SLIDING SCALE (NOVOLOG) 1 VIAL SQ SCH ×3 (06:33→16:56)
[2017-11-08 06:58] LABS: BASO % 0.4 % (0-2.0); EOS % 2.9 % (0-4.5); HEMATOCRIT 36.5 % (35.4-49); LYMPH % 19.1 % (8-40); MCH 26.4 pg (25.7-33.7); MCHC 32.9 g/dl (32.0-35.9); MEAN CELL VOLUME 80.5 fl (80-96); MEAN PLT VOLUME 9.3 fl (7.5-11.1); MONO % 7.2 % (3.8-10.2); NEUT % 70.4 % (42.8-82.8); PLATELET COUNT 235 K/MM3 (134-434); RBC 4.53 M/mm3 (4.00-5.60); RDW 16.8 % (11.9-15.9); WHITE BLOOD COUNT 9.4 K/mm3 (4.0-10.0)
[2017-11-08 07:41] LABS: ANION GAP 6 (8-16); BLOOD UREA NITROGEN 58 mg/dL (7-18); CHLORIDE 118 mmol/L (98-107); CO2 26 mmol/L (21-32); CREATININE 2.1 mg/dL (0.7-1.3); GLUCOSE,RANDOM 96 mg/dL (74-106); POTASSIUM 4.3 mmol/L (3.5-5.1); SODIUM 150 mmol/L (136-145)
[2017-11-08] MEDS: HEPARIN NA (PORCINE) 5,000 UNITS/ML 1ML VIAL SQ SCH ×2 (09:40→22:51)
[2017-11-08] MEDS: CEFTRIAXONE 1 G/50 ML PREMIX 50 ML IVPB SCH (09:40)
--- NOTE | 2017-11-08 10:56 | CONSULT ---
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: CVA (hemorrhagic, 2016) Cardiovascular: Yes: CAD, HTN, Hyperlipdemia Renal/: Yes: BPH Musculoskeletal: Yes: Hemiparesis (right) Endocrine: Yes: Diabetes Mellitus - Past Surgical History Past Surgical History: Yes: CABG (2004) - Advance Directives Advance Directives: Yes: DNR (DNI) - Smoking History Smoking history: Former smoker Have you smoked in the past 12 months: No - Alcohol/Substance Use Hx Alcohol Use: No History of Substance Use: reports: None - Social History ADL: Support Services History of Recent Travel: No History - Admission Reason For Visit: UTI - Hearing Hearing: Normal Hearing Aide: No With Patient: No Speech Evaluation - Communication Primary Language: [place] Communication: Yes: Within Normal Limits Oral Expression Ability: Yes: No Impairment - Speech Production Dysarthria: Yes: Flaccid Apraxia: No Able to Make Needs Known: Yes: WNL Intelligibility: Yes: WNL - Speech Characteristics Voice Loudness: Moderately Soft/Quiet Voice Pitch: Yes: Limited Variation Voice Phonatory-based Quality: Yes: Hoarse, Breathy Speech Pattern: Normal Nasal Resonance: Normal Articulation: Yes: Precise Rate of Speech: Intact Voice, Other Observations: Yes: Mouth Breathing - Language/Auditory Comprehension Follows: Yes: 1 Stage Simple Commands (WFL), 2 Stage Simple Commands (WFL) Observation: Able to respond to yes/no queries: Yes, Yes/No Confusion: No, Comprehends Conversational Speech: Yes, Benefits from Slow Speech: No, Benefits from Repetiton: No, Benefits from Increased Volume of Speech: No - Language/Verbal Expression Able to Respond to Simple Queries: Yes: WNL Able to Communicate Wants and Needs: Yes: WNL Functional Communication Status: Yes: WNL Aware of Errors: Yes Attempts to Correct Errors: Yes Use of Gestures: No Written Expression: Not examined Oral Expression: WFL Reading Comprehension: Not examined Calculations: Not examined Attention: Yes: Intact - Memory/Perception medical terminologist Memory: Yes: Mildly Impaired Short Term Memory: Yes: Mildly Impaired - Swallow Evaluation/Bedside Assessment Current Nutritional Intake: Dysphagia Pureed, Honey Textured Liquids Oral Secretions: Yes: WFL Tracheostomy Present: No Patient on Ventilator: No Dentition: Yes: Edentulous (a few teeth on bottom jaw) Facial Symmetry at Rest: Symmetrical Facial Symmetry on Retraction: Symmetrical Facial Movement: Controlled Sensation: Normal Facial Comment: WFL for speech and swallowing purposes. Jaw Position: Open at Rest (but can closed volitionally) Against Resistance Opening: Normal Against Resistance Closing: Normal Pucker Lips: Normal Lips, Comment: WFL for speech and swallowing purposes. Lingual Movement: Normal Lingual Speed of Movement: Normal Lingual Movement Strgth Against Opposition: Normal Lingual Movement Characteristics: Normal Lingual Comment: WFL for speech and swallowing purposes. Soft Palate Description: Normal Color, Normal Arch Hard Palate Description: Normal Color, Normal Arch Gag Reflex: Strong Bite Reflex: Present Laryngeal Elevation: WFL Laryngeal Movement: Able to Palpate Needs Assistance: Yes Rate of Intake: WFL Bolus Size: WFL Labial Seal: WFL Chewing: WFL Oral Prep Time: WFL A-P Transit: WFL Timing of Swallow: WFL Coughing/Throat Clear: Yes (with thin liquids) Change in Voice: No Other Findings/Remarks: 87 yo male seen at bedside for swallow eval to r/o dysphagia. Pt is verbal, A& Ox2 and somewhat cooperative. Pt admitted to [facility] for weight loss and reduced nutritional intake. PMHX includes HTN DM 2, CAD CVA 2016 with right hemiparesis. Reduced vocal quality characterized as hoarsen, breathy. Adequate airway protection. Pt given po trials of pureed with total assistance revealed reduced acceptance, adequate bolus formation and transport, timely pharyngeal swallows with no cough or changes in respiration or voicing. Pt given po trials with thin and thicken liquids revealed revealed reduced acceptance, adequate bolus formation and transport, timely pharyngeal swallows with positive s/s of aspiration with thin liquids. No cough or changes in respiration or voicing with thicken liquids. Pt does not like honey thicken liquids. Recommendations - Speech Evaluation, Impression/Plan Impression: 87 yo male presents with mild to moderate s/s of aspiration-like behaviors with thin liquids. Pt is able to tolerate pureed and thicken liquids w/o s/s of aspiration at this time. Correction Goals: tolerate the least restrictive diet w/o s/s of aspiration Short Term Goals: tolerate the puree and nectar thicken liquids without s/s of aspiration - Dysphagia Impressions/Plan Swallowing Skills: Impaired (for thin liquids) Dysphagia Impressions: Moderate Impairment, Risk of Aspiration, Suspect Aspiration (with thin liquids) *Silent aspiration: cannot be R/O at bedside Dysphagia Treatment Plan: Small Bites, Safe Rate, 1/2 tsp. at a time, Elevate HOB during feed, Other (monitor nutritional intake and pulmonary status.) Dysphagia Evaluation Summary: Pt is able to tolerate pureed and thicken liquids without s/s of aspiration at this time. Pt perfers thin liquids and has been refusing honey thicken liquids. Offer nectar thicken and monitor s/s of aspiration. Results given verbally to charge machine operator Salome and pcp via chart. MECHANICAL PLANNER to follow up. Recommendations: Modified Barium Swallow (consider to determine aspiration of thin liquids or silent aspiration) - Recommendations Diet Consistency: Dysphagia Pureed Medication Administration: Crushed with applesauce Liquids: [place] Thick
[2017-11-08] MEDS ORDERED: SODIUM CHLORIDE 1,000 ML IV SCH (12:00)
--- NOTE | 2017-11-08 12:04 | PN ---
Progress Note, Physician Chief Complaint: Alert not in distress - Current Medication List Current Medications: Active Medications Acetaminophen (Tylenol -) 500 mg PO Q6H PRN PRN Reason: FEVER Last Admin: 11/06/17 17:16 Dose: 500 mg Atorvastatin Calcium (Lipitor -) 40 mg PO HS [facility] Last Admin: 11/07/17 22:13 Dose: 40 mg Heparin Sodium (Porcine) (Heparin -) 5,000 unit SQ BID [facility] Last Admin: 11/08/17 09:40 Dose: 5,000 unit CEFTRIAXONE 1 G/50 ML PREMIX (Ceftriaxone 1 Gm-D5w Bag) 50 mls @ 100 mls/hr IVPB DAILY [facility] Last Admin: 11/08/17 09:40 Dose: 100 mls/hr Sodium Chloride (Normal Saline -) 1,000 mls @ 83 mls/hr IV ASDIR [facility] Last Admin: 11/07/17 22:14 Dose: 83 mls/hr Sodium Chloride (Normal Saline -) 1,000 mls @ 75 mls/hr IV ASDIR EJ Insulin Aspart (Novolog Vial Sliding Scale -) 1 vial SQ TIDAC [facility] PRN Reason: Protocol Last Admin: 11/08/17 11:25 Dose: 1 units - Objective Vital Signs: Vital Signs Temperature 98.1 F 11/08/17 09:00 Pulse Rate 70 11/08/17 09:00 Respiratory Rate 18 11/08/17 09:00 Blood Pressure 115/66 11/08/17 09:00 O2 Sat by Pulse Oximetry (%) 99 11/08/17 09:00 Elderly M not in distress HEENT: MM Dry , anemia' NECK: No JVD No Bruit CHEST: CTA B/L CVS: S1S2 R ABD: Soft No distention, non tender BS + EXT:No Edema feet, Decubitus ulcer. Scrotal erythema LOCK MASTER: minimally communicative, Rt sided weakness Labs: CBC, BMP 11/08/17 05:35 11/08/17 05:35 Problem List - Problems (1) AMANDA (acute kidney injury) Assessment/Plan: Due to Dehydration F/U BMP improving Code(s): N17.9 - ACUTE KIDNEY FAILURE, UNSPECIFIED (2) HTN (hypertension) Assessment/Plan: BP Meds are on Hold Code(s): I10 - ESSENTIAL (PRIMARY) HYPERTENSION Qualifiers: Hypertension type: essential hypertension Qualified Code(s): I10 - Essential (primary) hypertension (3) CAD (coronary artery disease) Assessment/Plan: No active issue Qualifiers: Coronary Disease-Associated Artery/Lesion type: bypass graft [place] vs. transplanted heart: [place] heart Associated angina: without angina Qualified Code(s): I25.810 - Atherosclerosis of coronary artery bypass graft(s) without angina pectoris (4) DM (diabetes mellitus) Assessment/Plan: cont Correction dose insulin, hold Po Meds Code(s): E11.9 - TYPE 2 DIABETES MELLITUS WITHOUT COMPLICATIONS Qualifiers: Diabetes mellitus type: type 2 Diabetes mellitus jail insulin use: without jail use (5) UTI (urinary tract infection) Assessment/Plan: Responding to Ceftriaxone Culture is negative Code(s): N39.0 - URINARY TRACT INFECTION, SITE NOT SPECIFIED Qualifiers: Urinary tract infection type: acute cystitis Hematuria presence: without hematuria Qualified Code(s): N30.00 - Acute cystitis without hematuria (6) Dehydration Assessment/Plan: Speech and swallow evaluation F/U F/U BMP Code(s): E86.0 - DEHYDRATION (7) Scrotal rash Assessment/Plan: ONt Clotrimaxzole Code(s): R21 - RASH AND OTHER NONSPECIFIC SKIN ERUPTION
[2017-11-08] MEDS: CLOTRIMAZOLE 1% CREAM 15 GM TUBE TP SCH ×2 (13:49→22:52)
[2017-11-08] MEDS ORDERED: PT OWN MED DRAWER 7, Y5N ONE (22:10)
[2017-11-08] MEDS: ATORVASTATIN CA 20 MG TABLET (FP) PO SCH (22:51)
[2017-11-09] MEDS: INSULIN SLIDING SCALE (NOVOLOG) 1 VIAL SQ SCH ×3 (06:53→17:29)
[2017-11-09] MEDS ORDERED: INSULIN (NOVOLOG) ASPART 100 UNITS/ML 10ML VIAL ONE (07:14)
[2017-11-09 07:36] LABS: BASO % 0.5 % (0-2.0); EOS % 3.8 % (0-4.5); HEMATOCRIT 37.1 % (35.4-49); LYMPH % 19.1 % (8-40); MCHC 32.2 g/dl (32.0-35.9); MEAN CELL VOLUME 80.7 fl (80-96); MEAN PLT VOLUME 8.9 fl (7.5-11.1); NEUT % 68.6 % (42.8-82.8); PLATELET COUNT 226 K/MM3 (134-434); RBC 4.59 M/mm3 (4.00-5.60); RDW 17.6 % (11.9-15.9); WHITE BLOOD COUNT 8.6 K/mm3 (4.0-10.0)
[2017-11-09 07:46] LABS: ANION GAP 7 (8-16); BLOOD UREA NITROGEN 42 mg/dL (7-18); CHLORIDE 124 mmol/L (98-107); CO2 24 mmol/L (21-32); CREATININE 1.7 mg/dL (0.7-1.3); GLUCOSE,RANDOM 103 mg/dL (74-106); POTASSIUM 3.9 mmol/L (3.5-5.1); SODIUM 155 mmol/L (136-145)
[2017-11-09] MEDS ORDERED: DEXTROSE 5%-WATER - 1,000 ML IV SCH (09:15)
[2017-11-09] MEDS: DEXTROSE 5%-0.45% SALINE 1,000 ML IV SCH ×2 (10:37→23:22)
[2017-11-09] MEDS: CEFTRIAXONE 1 G/50 ML PREMIX 50 ML IVPB SCH (10:38)
[2017-11-09] MEDS: CLOTRIMAZOLE 1% CREAM 15 GM TUBE TP SCH ×2 (10:40→23:23)
[2017-11-09] MEDS: HEPARIN NA (PORCINE) 5,000 UNITS/ML 1ML VIAL SQ SCH ×2 (10:41→23:23)
--- NOTE | 2017-11-09 11:13 | PN ---
Progress Note, Physician Chief Complaint: pt lying in bed in no acute distress. alert and oriented. denies chest pain, sob , n/v/d - Current Medication List Current Medications: Active Medications Acetaminophen (Tylenol -) 500 mg PO Q6H PRN PRN Reason: FEVER Last Admin: 11/06/17 17:16 Dose: 500 mg Atorvastatin Calcium (Lipitor -) 40 mg PO HS [facility] Last Admin: 11/08/17 22:51 Dose: 40 mg Clotrimazole (Lotrimin 1% Cream -) 1 applic TP BID [facility] Last Admin: 11/09/17 10:40 Dose: 1 applic Heparin Sodium (Porcine) (Heparin -) 5,000 unit SQ BID [facility] Last Admin: 11/09/17 10:41 Dose: 5,000 unit CEFTRIAXONE 1 G/50 ML PREMIX (Ceftriaxone 1 Gm-D5w Bag) 50 mls @ 100 mls/hr IVPB DAILY [facility] Last Admin: 11/09/17 10:38 Dose: 100 mls/hr Dextrose/Sodium Chloride (D5-1/2ns -) 1,000 mls @ 75 mls/hr IV ASDIR [facility] Last Admin: 11/09/17 10:37 Dose: 75 mls/hr Insulin Aspart (Novolog Vial Sliding Scale -) 1 vial SQ TIDAC [facility] PRN Reason: Protocol Last Admin: 11/09/17 06:53 Dose: 1 units - Objective Vital Signs: Vital Signs Temperature 98.5 F 11/09/17 05:00 Pulse Rate 80 11/09/17 05:00 Respiratory Rate 20 11/09/17 05:00 Blood Pressure 107/51 11/09/17 05:00 O2 Sat by Pulse Oximetry (%) 98 11/08/17 21:00 Constitutional: Yes: No Distress Cardiovascular: Yes: WNL, Regular Rate and Rhythm. No: JVD, Gallop, Murmur Respiratory: Yes: WNL, Regular, CTA Bilaterally, Diminished Gastrointestinal: Yes: WNL, Normal Bowel Sounds, Soft. No: Distention, Tenderness Genitourinary: Yes: Bladder Distention Edema: No Integumentary: Yes: Pressure Ulcer Wound/Incision: Yes: Dressing Dry and Intact Neurological: Yes: Alert, Aphasia Psychiatric: Yes: Alert Labs: CBC, BMP 11/09/17 06:00 11/09/17 06:00 Problem List - Problems (1) Sepsis Code(s): A41.9 - SEPSIS, UNSPECIFIED ORGANISM Qualifiers: Sepsis type: sepsis due to unspecified organism Qualified Code(s): A41.9 - Sepsis, unspecified organism (2) UTI (urinary tract infection) Code(s): N39.0 - URINARY TRACT INFECTION, SITE NOT SPECIFIED Qualifiers: Urinary tract infection type: acute cystitis Hematuria presence: without hematuria Qualified Code(s): N30.00 - Acute cystitis without hematuria (3) Acute metabolic encephalopathy Code(s): G93.41 - METABOLIC ENCEPHALOPATHY (4) Hyponatremia Code(s): E87.1 - HYPO-OSMOLALITY AND HYPONATREMIA (5) Leukocytosis Code(s): D72.829 - ELEVATED WHITE BLOOD CELL COUNT, UNSPECIFIED (6) DM (diabetes mellitus) Code(s): E11.9 - TYPE 2 DIABETES MELLITUS WITHOUT COMPLICATIONS Qualifiers: Diabetes mellitus type: type 2 Diabetes mellitus terminal operations supervisor insulin use: without residential use (7) Dehydration Code(s): E86.0 - DEHYDRATION (8) AMANDA (acute kidney injury) Code(s): N17.9 - ACUTE KIDNEY FAILURE, UNSPECIFIED (9) Hyperkalemia Code(s): E87.5 - HYPERKALEMIA (10) BPH (benign prostatic hyperplasia) Code(s): N40.0 - BENIGN PROSTATIC HYPERPLASIA WITHOUT LOWER URINRY TRACT SYMP (11) Hemiparesis Code(s): G81.90 - HEMIPLEGIA, UNSPECIFIED AFFECTING UNSPECIFIED SIDE Qualifiers: Cerebrovascular disease type: nontraumatic intracerebral hemorrhage (12) CAD (coronary artery disease) Code(s): I25.10 - ATHSCL HEART DISEASE OF [place] CORONARY ARTERY W/O ANG PCTRS Qualifiers: Coronary Disease-Associated Artery/Lesion type: bypass graft [place] vs. transplanted heart: [place] heart Associated angina: without angina Qualified Code(s): I25.810 - Atherosclerosis of coronary artery bypass graft(s) without angina pectoris (13) HTN (hypertension) Code(s): I10 - ESSENTIAL (PRIMARY) HYPERTENSION Qualifiers: Hypertension type: essential hypertension Qualified Code(s): I10 - Essential (primary) hypertension (14) Acute hypernatremia Code(s): E87.0 - HYPEROSMOLALITY AND HYPERNATREMIA (15) Pressure ulcer of sacral region, stage 2 Code(s): L89.152 - PRESSURE ULCER OF SACR[place] REGION, STAGE 2 (16) Poor fluid intake Code(s): R63.8 - OTHER SYMPTOMS AND SIGNS CONCERNING FOOD AND FLUID INTAKE (17) Candidal urinary tract infection Code(s): B37.49 - OTHER UROGENITAL CANDIDIASIS Assessment/Plan (1) Sepsis Assessment/Plan: Improved chest xray neg blood cultures neg continue ceftriaxone IVF tele monitoring adequate glycemic control Code(s): A41.9 - SEPSIS, UNSPECIFIED ORGANISM Qualifiers: Sepsis type: sepsis due to unspecified organism Qualified Code(s): A41.9 - Sepsis, unspecified organism (2) Candidal urinary tract infection Assessment/Plan: UA positive UC with yeast growth continue ceftriaxone lactobacillus po ordered diflucan po per ID ivf ID following Code(s): B37.49 - OTHER UROGENITAL CANDIDIASIS (3) Acute metabolic encephalopathy Assessment/Plan: improved Code(s): G93.41 - METABOLIC ENCEPHALOPATHY (4) Acute hypernatremia Assessment/Plan: secondary to intravasc volume depletion NS d/c'd, D51/2 ns started monitor bmp Code(s): E87.0 - HYPEROSMOLALITY AND HYPERNATREMIA (5) Leukocytosis Assessment/Plan: improved, secondary to uti/sepsis continue ceftriaxone Code(s): D72.829 - ELEVATED WHITE BLOOD CELL COUNT, UNSPECIFIED (6) Pressure ulcer of sacral region, stage 2 Assessment/Plan: stage 2 pressure ulcer of gluteal cleft, present on admission continue reposition q2hrs apply barrier cream and foam dressing wound/vasc team consulted Code(s): L89.152 - PRESSURE ULCER OF [place]CR[place] REGION, STAGE 2 (7) Poor fluid intake Assessment/Plan: poor po intake at home assisted with feed here speech eval reviewed dysphagia pureed diet, tolerating Code(s): R63.8 - OTHER SYMPTOMS AND SIGNS CONCERNING FOOD AND FLUID INTAKE (8) DM (diabetes mellitus) Assessment/Plan: stable, HgA1c 7.3 on metformin at home, hold in the setting of amanda bgm insulin sliding scale Code(s): E11.9 - TYPE 2 DIABETES MELLITUS WITHOUT COMPLICATIONS Qualifiers: Diabetes mellitus type: type 2 Diabetes mellitus terminal operations supervisor insulin use: without residential use (9) Dehydration Assessment/Plan: improving ,secondary to poor po intake ivf Code(s): E86.0 - DEHYDRATION (10) AMANDA (acute kidney injury) Assessment/Plan: improving, secondary to dehydration IVF Code(s): N17.9 - ACUTE KIDNEY FAILURE, UNSPECIFIED (11) Hyperkalemia Assessment/Plan: resolved Code(s): E87.5 - HYPERKALEMIA (12) BPH (benign prostatic hyperplasia) Assessment/Plan: stable flomax and finasteride restarted bladder scan to assess retention Code(s): N40.0 - BENIGN PROSTATIC HYPERPLASIA WITHOUT LOWER URINRY TRACT SYMP (13) Hemiparesis Assessment/Plan: right sided, chronic no acute changes, head ct neg PT as tolerated Code(s): G81.90 - HEMIPLEGIA, UNSPECIFIED AFFECTING UNSPECIFIED SIDE Qualifiers: Cerebrovascular disease type: nontraumatic intracerebral hemorrhage (14) CAD (coronary artery disease) Assessment/Plan: s/p CABG-2004 continue aspirin, atorvastatin Code(s): I25.10 - ATHSCL HEART DISEASE OF [place] CORONARY ARTERY W/O ANG PCTRS Qualifiers: Coronary Disease-Associated Artery/Lesion type: bypass graft [place] vs. transplanted heart: [place] heart Associated angina: without angina Qualified Code(s): I25.810 - Atherosclerosis of coronary artery bypass graft(s) without angina pectoris (15) HTN (hypertension) Assessment/Plan: controlled off of meds on metoprolol and amlodipine at home hold meds in the setting of hypotension Code(s): I10 - ESSENTIAL (PRIMARY) HYPERTENSION Qualifiers: Hypertension type: essential hypertension Qualified Code(s): I10 - Essential (primary) hypertension Dispo: SNF vs home, SW to discuss with family
[2017-11-09] MEDS: TAMSULOSIN HCL 0.4 MG CAP.ER.24H (FP) PO SCH (12:06)
[2017-11-09] MEDS: ASPIRIN COATED 81 MG TABLET.EC PO SCH (12:06)
[2017-11-09] MEDS: FINASTERIDE 5 MG TABLET (FP) PO SCH (12:06)
--- NOTE | 2017-11-09 12:13 | PN ---
Progress Note (short form) - Note Progress Note: awake and alert no complaints Vital Signs Period Temp Pulse Resp BP Sys/Zamudio Pulse Ox Last 24 Hr 98.2 F-98.6 F 68-92 16-20 107-133/51-78 98 cor-rrr lungs clear abd soft,+palpable bladder ext no edema CBC, BMP 11/09/17 06:00 11/09/17 06:00 Microbiology 11/05/17 21:45 Blood - Peripheral Venous Blood Culture - Preliminary NO GROWTH OBTAINED AFTER 72 HOURS, INCUBATION TO CONTINUE FOR 2 DAYS. 11/05/17 21:25 Blood - Peripheral Venous Blood Culture - Preliminary NO GROWTH OBTAINED AFTER 72 HOURS, INCUBATION TO CONTINUE FOR 2 DAYS. 11/05/17 14:25 Urine - Urine Clean Catch Urine Culture - Final Yeast Like Organism Current Medications Acetaminophen (Tylenol -) 500 mg PO Q6H PRN PRN Reason: FEVER Last Admin: 11/06/17 17:16 Dose: 500 mg Aspirin (Ecotrin -) 81 mg PO DAILY [facility] Last Admin: 11/09/17 12:06 Dose: 81 mg Atorvastatin Calcium (Lipitor -) 40 mg PO HS [facility] Last Admin: 11/08/17 22:51 Dose: 40 mg Clotrimazole (Lotrimin 1% Cream -) 1 applic TP BID [facility] Last Admin: 11/09/17 10:40 Dose: 1 applic Finasteride (Proscar -) 5 mg PO DAILY [facility] Last Admin: 11/09/17 12:06 Dose: 5 mg Heparin Sodium (Porcine) (Heparin -) 5,000 unit SQ BID [facility] Last Admin: 11/09/17 10:41 Dose: 5,000 unit CEFTRIAXONE 1 G/50 ML PREMIX (Ceftriaxone 1 Gm-D5w Bag) 50 mls @ 100 mls/hr IVPB DAILY [facility] Last Admin: 11/09/17 10:38 Dose: 100 mls/hr Dextrose/Sodium Chloride (D5-1/2ns -) 1,000 mls @ 75 mls/hr IV ASDIR [facility] Last Admin: 11/09/17 10:37 Dose: 75 mls/hr Insulin Aspart (Novolog Vial Sliding Scale -) 1 vial SQ TIDAC [facility] PRN Reason: Protocol Last Admin: 11/09/17 12:05 Dose: 2 units Lactobacillus Acidophilus (Bacid -) 1 tab PO DAILY [facility] Tamsulosin HCl (Flomax -) 0.4 mg PO DAILY@0830 [facility] Last Admin: 11/09/17 12:06 Dose: 0.4 mg a/p dehydration ?urinary retention UTI- ?pretreated with levaquin day #5 ceftriaxone- add po diflucan for 3 days check bladder scan d/w hospitalist
[2017-11-09] MEDS: LACTOBACILLUS ACIDOPHILUS 1 EACH TAB (FP) PO SCH (12:49)
[2017-11-09] MEDS: FLUCONAZOLE 100 MG TABLET (UD) PO SCH (12:49)
[2017-11-09] MEDS: ATORVASTATIN CA 20 MG TABLET (FP) PO SCH ×2 (23:23→23:29)
[2017-11-10] MEDS: INSULIN SLIDING SCALE (NOVOLOG) 1 VIAL SQ SCH ×3 (06:32→17:08)
[2017-11-10 07:40] LABS: BASO % 0.3 % (0-2.0); EOS % 3.9 % (0-4.5); HEMATOCRIT 38.5 % (35.4-49); HEMOGLOBIN 12.1 GM/dL (11.7-16.9); LYMPH % 22.2 % (8-40); MCH 25.6 pg (25.7-33.7); MCHC 31.5 g/dl (32.0-35.9); MEAN CELL VOLUME 81.3 fl (80-96); MEAN PLT VOLUME 8.6 fl (7.5-11.1); MONO % 8.4 % (3.8-10.2); NEUT % 65.2 % (42.8-82.8); PLATELET COUNT 234 K/MM3 (134-434); RBC 4.73 M/mm3 (4.00-5.60); RDW 17.5 % (11.9-15.9); WHITE BLOOD COUNT 5.9 K/mm3 (4.0-10.0)
[2017-11-10 07:53] LABS: ANION GAP 11 (8-16); BLOOD UREA NITROGEN 27 mg/dL (7-18); CALCIUM 8.6 mg/dL (8.5-10.1); CHLORIDE 120 mmol/L (98-107); CO2 24 mmol/L (21-32); CREATININE 1.4 mg/dL (0.7-1.3); GLUCOSE,RANDOM 123 mg/dL (74-106); MAGNESIUM 1.7 mg/dL (1.8-2.4); PHOSPHOROUS 2.6 mg/dL (2.5-4.9); SODIUM 155 mmol/L (136-145)
[2017-11-10] MEDS: LACTOBACILLUS ACIDOPHILUS 1 EACH TAB (FP) PO SCH (09:13)
[2017-11-10] MEDS: FLUCONAZOLE 100 MG TABLET (UD) PO SCH (09:13)
[2017-11-10] MEDS: TAMSULOSIN HCL 0.4 MG CAP.ER.24H (FP) PO SCH (09:13)
[2017-11-10] MEDS: CEFTRIAXONE 1 G/50 ML PREMIX 50 ML IVPB SCH (09:13)
[2017-11-10] MEDS: FINASTERIDE 5 MG TABLET (FP) PO SCH (09:13)
[2017-11-10] MEDS: ASPIRIN COATED 81 MG TABLET.EC PO SCH (09:13)
[2017-11-10] MEDS: CLOTRIMAZOLE 1% CREAM 15 GM TUBE TP SCH ×2 (09:14→22:30)
[2017-11-10] MEDS: HEPARIN NA (PORCINE) 5,000 UNITS/ML 1ML VIAL SQ SCH ×2 (09:14→22:29)
--- NOTE | 2017-11-10 10:32 | PN ---
Progress Note, SALES RECRUITING COORDINATOR - Note Progress Note: Selected Entries 11/09/17 11/09/17 11/09/17 01:00 05:00 09:00 Breakfast Temperature 98.2 F 98.5 F 98.7 F 11/09/17 11/09/17 11/09/17 14:54 18:30 21:00 Breakfast Temperature 98.8 F 98.7 F 98 F 11/10/17 11/10/17 11/10/17 01:18 05:54 09:13 Breakfast 25% Temperature 99.5 F 99.4 F Laboratory Tests 11/10/17 06:00 WBC 5.9 D Dislikes puree/nectar thick. For MBS to upgrade diet safely.
--- NOTE | 2017-11-10 11:28 | PN ---
Progress Note (short form) - Note Progress Note: awake and alert no complaints he had urinary retention and required straight cath yesterday Vital Signs Period Temp Pulse Resp BP Sys/Zamudio Pulse Ox Last 24 Hr 98 F-99.5 F 74-87 20-20 105-122/50-59 98 cor-rrr lungs clear abd soft,nt ext no edema CBC, BMP 11/10/17 06:00 11/10/17 06:00 Microbiology 11/05/17 21:45 Blood - Peripheral Venous Blood Culture - Preliminary NO GROWTH OBTAINED AFTER 96 HOURS, INCUBATION TO CONTINUE FOR 1 DAYS. 11/05/17 21:25 Blood - Peripheral Venous Blood Culture - Preliminary NO GROWTH OBTAINED AFTER 96 HOURS, INCUBATION TO CONTINUE FOR 1 DAYS. 11/05/17 14:25 Urine - Urine Clean Catch Urine Culture - Final Yeast Like Organism Current Medications Acetaminophen (Tylenol -) 500 mg PO Q6H PRN PRN Reason: FEVER Last Admin: 11/06/17 17:16 Dose: 500 mg Aspirin (Ecotrin -) 81 mg PO DAILY [facility] Last Admin: 11/10/17 09:13 Dose: 81 mg Atorvastatin Calcium (Lipitor -) 40 mg PO HS [facility] Last Admin: 11/09/17 23:29 Dose: Not Given Clotrimazole (Lotrimin 1% Cream -) 1 applic TP BID [facility] Last Admin: 11/10/17 09:14 Dose: 1 applic Finasteride (Proscar -) 5 mg PO DAILY [facility] Last Admin: 11/10/17 09:13 Dose: 5 mg Fluconazole (Diflucan -) 100 mg PO DAILY [facility] Last Admin: 11/10/17 09:13 Dose: 100 mg Heparin Sodium (Porcine) (Heparin -) 5,000 unit SQ BID [facility] Last Admin: 11/10/17 09:14 Dose: 5,000 unit CEFTRIAXONE 1 G/50 ML PREMIX (Ceftriaxone 1 Gm-D5w Bag) 50 mls @ 100 mls/hr IVPB DAILY [facility] Last Admin: 11/10/17 09:13 Dose: 100 mls/hr Dextrose/Sodium Chloride (D5-1/2ns -) 1,000 mls @ 75 mls/hr IV ASDIR [facility] Last Admin: 11/09/17 23:22 Dose: 75 mls/hr Insulin Aspart (Novolog Vial Sliding Scale -) 1 vial SQ TIDAC [facility] PRN Reason: Protocol Last Admin: 11/10/17 06:32 Dose: 1 units Lactobacillus Acidophilus (Bacid -) 1 tab PO DAILY [facility] Last Admin: 11/10/17 09:13 Dose: 1 tab Tamsulosin HCl (Flomax -) 0.4 mg PO DAILY@0830 [facility] Last Admin: 11/10/17 09:13 Dose: 0.4 mg a/p dehydration urinary retention-bph meds resumed UTI- ?pretreated with levaquin day #6 of 7 ceftriaxone- add po diflucan for 3 days please call back if needed
[2017-11-10] MEDS: DEXTROSE 5%-0.45% SALINE 1,000 ML IV SCH ×2 (11:55→15:55)
[2017-11-10] MEDS: ACETAMINOPHEN 500 MG TABLET (FP) PO PRN ×2 (13:37→22:29)
--- NOTE | 2017-11-10 13:47 | PN ---
Progress Note, Physician Chief Complaint: pt lying in bed in no acute distress. alert and oriented. denies chest pain, sob , n/v/d - Current Medication List Current Medications: Active Medications Acetaminophen (Tylenol -) 500 mg PO Q6H PRN PRN Reason: FEVER Last Admin: 11/10/17 13:37 Dose: 500 mg Aspirin (Ecotrin -) 81 mg PO DAILY [facility] Last Admin: 11/10/17 09:13 Dose: 81 mg Atorvastatin Calcium (Lipitor -) 40 mg PO HS [facility] Last Admin: 11/09/17 23:29 Dose: Not Given Clotrimazole (Lotrimin 1% Cream -) 1 applic TP BID [facility] Last Admin: 11/10/17 09:14 Dose: 1 applic Finasteride (Proscar -) 5 mg PO DAILY [facility] Last Admin: 11/10/17 09:13 Dose: 5 mg Fluconazole (Diflucan -) 100 mg PO DAILY [facility] Last Admin: 11/10/17 09:13 Dose: 100 mg Heparin Sodium (Porcine) (Heparin -) 5,000 unit SQ BID [facility] Last Admin: 11/10/17 09:14 Dose: 5,000 unit CEFTRIAXONE 1 G/50 ML PREMIX (Ceftriaxone 1 Gm-D5w Bag) 50 mls @ 100 mls/hr IVPB DAILY [facility] Last Admin: 11/10/17 09:13 Dose: 100 mls/hr Dextrose/Sodium Chloride (D5-1/2ns -) 1,000 mls @ 75 mls/hr IV ASDIR [facility] Last Admin: 11/10/17 11:55 Dose: Not Given Insulin Aspart (Novolog Vial Sliding Scale -) 1 vial SQ TIDAC [facility] PRN Reason: Protocol Lactobacillus Acidophilus (Bacid -) 1 tab PO DAILY [facility] Last Admin: 11/10/17 09:13 Dose: 1 tab Tamsulosin HCl (Flomax -) 0.4 mg PO DAILY@0830 [facility] Last Admin: 11/10/17 09:13 Dose: 0.4 mg - Objective Vital Signs: Vital Signs Temperature 99.4 F 11/10/17 05:54 Pulse Rate 87 11/10/17 05:54 Respiratory Rate 20 11/10/17 05:54 Blood Pressure 105/50 11/10/17 05:54 O2 Sat by Pulse Oximetry (%) 98 11/09/17 21:00 Constitutional: Yes: No Distress Cardiovascular: Yes: Regular Rate and Rhythm. No: JVD, Gallop, Murmur Respiratory: Yes: Diminished, Rales (bibasilar). No: Rhonchi, Stridor, Tachypnea, Wheezes Gastrointestinal: Yes: WNL, Normal Bowel Sounds, Soft. No: Distention, Tenderness Edema: No Psychiatric: Yes: Alert, Oriented Labs: CBC, BMP 11/10/17 06:00 11/10/17 06:00 Problem List - Problems (1) Sepsis Code(s): A41.9 - SEPSIS, UNSPECIFIED ORGANISM Qualifiers: Sepsis type: sepsis due to unspecified organism Qualified Code(s): A41.9 - Sepsis, unspecified organism (2) UTI (urinary tract infection) Code(s): N39.0 - URINARY TRACT INFECTION, SITE NOT SPECIFIED Qualifiers: Urinary tract infection type: acute cystitis Hematuria presence: without hematuria Qualified Code(s): N30.00 - Acute cystitis without hematuria (3) Acute metabolic encephalopathy Code(s): G93.41 - METABOLIC ENCEPHALOPATHY (4) Hyponatremia Code(s): E87.1 - HYPO-OSMOLALITY AND HYPONATREMIA (5) Leukocytosis Code(s): D72.829 - ELEVATED WHITE BLOOD CELL COUNT, UNSPECIFIED (6) DM (diabetes mellitus) Code(s): E11.9 - TYPE 2 DIABETES MELLITUS WITHOUT COMPLICATIONS Qualifiers: Diabetes mellitus type: type 2 Diabetes 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 insulin use: without fci use (7) Dehydration Code(s): E86.0 - DEHYDRATION (8) AMANDA (acute kidney injury) Code(s): N17.9 - ACUTE KIDNEY FAILURE, UNSPECIFIED (9) Hyperkalemia Code(s): E87.5 - HYPERKALEMIA (10) BPH (benign prostatic hyperplasia) Code(s): N40.0 - BENIGN PROSTATIC HYPERPLASIA WITHOUT LOWER URINRY TRACT SYMP (11) Hemiparesis Code(s): G81.90 - HEMIPLEGIA, UNSPECIFIED AFFECTING UNSPECIFIED SIDE Qualifiers: Cerebrovascular disease type: nontraumatic intracerebral hemorrhage (12) CAD (coronary artery disease) Code(s): I25.10 - ATHSCL HEART DISEASE OF [place] CORONARY ARTERY W/O ANG PCTRS Qualifiers: Coronary Disease-Associated Artery/Lesion type: bypass graft [place] vs. transplanted heart: [place] heart Associated angina: without angina Qualified Code(s): I25.810 - Atherosclerosis of coronary artery bypass graft(s) without angina pectoris (13) HTN (hypertension) Code(s): I10 - ESSENTIAL (PRIMARY) HYPERTENSION Qualifiers: Hypertension type: essential hypertension Qualified Code(s): I10 - Essential (primary) hypertension (14) Acute hypernatremia Code(s): E87.0 - HYPEROSMOLALITY AND HYPERNATREMIA (15) Pressure ulcer of sacral region, stage 2 Code(s): L89.152 - PRESSURE ULCER OF SACRAL REGION, STAGE 2 (16) Poor fluid intake Code(s): R63.8 - OTHER SYMPTOMS AND SIGNS CONCERNING FOOD AND FLUID INTAKE (17) Candidal urinary tract infection Code(s): B37.49 - OTHER UROGENITAL CANDIDIASIS Assessment/Plan (1) Sepsis Assessment/Plan: febrile today, hypotensive, wbcs wnl repeat chest xray today repeat blood cultures, UA/UC continue ceftriaxone IVF tele monitoring adequate glycemic control Code(s): A41.9 - SEPSIS, UNSPECIFIED ORGANISM Qualifiers: Sepsis type: sepsis due to unspecified organism Qualified Code(s): A41.9 - Sepsis, unspecified organism (2) Candidal urinary tract infection Assessment/Plan: UA positive UC with yeast growth continue ceftriaxone lactobacillus po ordered diflucan po per ID ivf ID following Code(s): B37.49 - OTHER UROGENITAL CANDIDIASIS (3) Acute metabolic encephalopathy Assessment/Plan: improved Code(s): G93.41 - METABOLIC ENCEPHALOPATHY (4) Acute hypernatremia Assessment/Plan: secondary to intravasc volume depletion continue D51/2 ns monitor bmp consider nephrology consult if no improvement Code(s): E87.0 - HYPEROSMOLALITY AND HYPERNATREMIA (5) Leukocytosis Assessment/Plan: improved, secondary to uti/sepsis continue ceftriaxone Code(s): D72.829 - ELEVATED WHITE BLOOD CELL COUNT, UNSPECIFIED (6) Pressure ulcer of sacral region, stage 2 Assessment/Plan: stage 2 pressure ulcer of gluteal cleft, present on admission continue reposition q2hrs apply barrier cream and foam dressing wound/vasc team consulted Code(s): L89.152 - PRESSURE ULCER OF SACRAL REGION, STAGE 2 (7) Poor fluid intake Assessment/Plan: poor po intake at home assisted with feed here speech eval reviewed dysphagia pureed diet, tolerating barium swallow eval today Code(s): R63.8 - OTHER SYMPTOMS AND SIGNS CONCERNING FOOD AND FLUID INTAKE (8) DM (diabetes mellitus) Assessment/Plan: stable, HgA1c 7.3 on metformin at home, hold in the setting of amanda bgm insulin sliding scale Code(s): E11.9 - TYPE 2 DIABETES MELLITUS WITHOUT COMPLICATIONS Qualifiers: Diabetes mellitus type: type 2 Diabetes 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 insulin use: without 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 use (9) Dehydration Assessment/Plan: improving ,secondary to poor po intake ivf Code(s): E86.0 - DEHYDRATION (10) AMANDA (acute kidney injury) Assessment/Plan: improving, secondary to dehydration IVF Code(s): N17.9 - ACUTE KIDNEY FAILURE, UNSPECIFIED (11) Hyperkalemia Assessment/Plan: resolved Code(s): E87.5 - HYPERKALEMIA (12) BPH (benign prostatic hyperplasia) Assessment/Plan: stable, s/p straight cath yesterday for acute urinary retention flomax and finasteride restarted bladder scan to assess retention Code(s): N40.0 - BENIGN PROSTATIC HYPERPLASIA WITHOUT LOWER URINRY TRACT SYMP (13) Hemiparesis Assessment/Plan: right sided, chronic no acute changes, head ct neg PT as tolerated Code(s): G81.90 - HEMIPLEGIA, UNSPECIFIED AFFECTING UNSPECIFIED SIDE Qualifiers: Cerebrovascular disease type: nontraumatic intracerebral hemorrhage (14) CAD (coronary artery disease) Assessment/Plan: s/p CABG-2004 continue aspirin, atorvastatin Code(s): I25.10 - ATHSCL HEART DISEASE OF [place] CORONARY ARTERY W/O ANG PCTRS Qualifiers: Coronary Disease-Associated Artery/Lesion type: bypass graft [place] vs. transplanted heart: [place] heart Associated angina: without angina Qualified Code(s): I25.810 - Atherosclerosis of coronary artery bypass graft(s) without angina pectoris (15) HTN (hypertension) Assessment/Plan: controlled off of meds on metoprolol and amlodipine at home hold meds in the setting of hypotension Code(s): I10 - ESSENTIAL (PRIMARY) HYPERTENSION Qualifiers: Hypertension type: essential hypertension Qualified Code(s): I10 - Essential (primary) hypertension Dispo: SNF when clinically stable
[2017-11-10 20:40] LABS: URINE APPEARANCE TURBID; URINE BILIRUBIN NEGATIVE (NEGATIVE); URINE BLOOD 2+ (NEGATIVE); URINE COLOR YELLOW; URINE GLUCOSE (UA) NEGATIVE (NEGATIVE); URINE KETONE NEGATIVE (NEGATIVE); URINE NITRITE NEGATIVE (NEGATIVE); URINE UROBILINOGEN NEGATIVE mg/dL (0.2-1.0)
[2017-11-10 20:43] LABS: URINE LEUK ESTERASE 3+ (NEGATIVE); URINE PROTEIN 1+ (NEGATIVE)
[2017-11-10 20:45] LABS: YEAST FEW
[2017-11-10] MEDS: ATORVASTATIN CA 20 MG TABLET (FP) PO SCH (22:29)
[2017-11-11 07:17] LABS: BASO % 0.4 % (0-2.0); EOS % 1.8 % (0-4.5); HEMATOCRIT 37.5 % (35.4-49); LYMPH % 29.1 % (8-40); MCH 25.7 pg (25.7-33.7); MCHC 31.9 g/dl (32.0-35.9); MEAN CELL VOLUME 80.6 fl (80-96); MEAN PLT VOLUME 8.2 fl (7.5-11.1); MONO % 9.9 % (3.8-10.2); NEUT % 58.8 % (42.8-82.8); PLATELET COUNT 210 K/MM3 (134-434); RBC 4.66 M/mm3 (4.00-5.60); RDW 17.5 % (11.9-15.9); WHITE BLOOD COUNT 7.2 K/mm3 (4.0-10.0)
[2017-11-11] MEDS: INSULIN SLIDING SCALE (NOVOLOG) 1 VIAL SQ SCH ×3 (08:07→18:29)
[2017-11-11 08:23] LABS: CHLORIDE 118 mmol/L (98-107); POTASSIUM 3.6 mmol/L (3.5-5.1); SODIUM 154 mmol/L (136-145)
[2017-11-11 08:27] LABS: ANION GAP 12 (8-16); BLOOD UREA NITROGEN 24 mg/dL (7-18); CALCIUM 7.9 mg/dL (8.5-10.1); CO2 24 mmol/L (21-32); CREATININE 1.3 mg/dL (0.7-1.3); GLUCOSE,RANDOM 139 mg/dL (74-106); MAGNESIUM 1.6 mg/dL (1.8-2.4); PHOSPHOROUS 2.6 mg/dL (2.5-4.9)
--- NOTE | 2017-11-11 10:46 | PN ---
Progress Note, Physician Chief Complaint: pt lying in bed in no acute distress. alert and oriented. denies chest pain, sob , n/v/d - Current Medication List Current Medications: Active Medications Acetaminophen (Tylenol -) 500 mg PO Q6H PRN PRN Reason: FEVER Last Admin: 11/10/17 22:29 Dose: 500 mg Aspirin (Ecotrin -) 81 mg PO DAILY [facility] Last Admin: 11/10/17 09:13 Dose: 81 mg Atorvastatin Calcium (Lipitor -) 40 mg PO HS [facility] Last Admin: 11/10/17 22:29 Dose: 40 mg Clotrimazole (Lotrimin 1% Cream -) 1 applic TP BID [facility] Last Admin: 11/10/17 22:30 Dose: 1 applic Finasteride (Proscar -) 5 mg PO DAILY [facility] Last Admin: 11/10/17 09:13 Dose: 5 mg Fluconazole (Diflucan -) 100 mg PO DAILY [facility] Last Admin: 11/10/17 09:13 Dose: 100 mg Heparin Sodium (Porcine) (Heparin -) 5,000 unit SQ BID [facility] Last Admin: 11/10/17 22:29 Dose: 5,000 unit CEFTRIAXONE 1 G/50 ML PREMIX (Ceftriaxone 1 Gm-D5w Bag) 50 mls @ 100 mls/hr IVPB DAILY [facility] Last Admin: 11/10/17 09:13 Dose: 100 mls/hr Dextrose/Sodium Chloride (D5-1/2ns -) 1,000 mls @ 75 mls/hr IV ASDIR [facility] Last Admin: 11/10/17 15:55 Dose: 75 mls/hr Insulin Aspart (Novolog Vial Sliding Scale -) 1 vial SQ TIDAC [facility] PRN Reason: Protocol Last Admin: 11/11/17 08:07 Dose: Not Given Lactobacillus Acidophilus (Bacid -) 1 tab PO DAILY [facility] Last Admin: 11/10/17 09:13 Dose: 1 tab Magnesium Sulfate (Magnesium Sulfate) 2 gm IVPB ONCE ONE Stop: 11/11/17 10:11 Potassium Chloride (K-Dur -) 40 meq PO ONCE ONE Stop: 11/11/17 10:12 Tamsulosin HCl (Flomax -) 0.4 mg PO DAILY@0830 [facility] Last Admin: 11/10/17 09:13 Dose: 0.4 mg - Objective Vital Signs: Vital Signs Temperature 98.5 F 11/11/17 06:00 Pulse Rate 78 11/11/17 06:00 Respiratory Rate 20 11/11/17 06:00 Blood Pressure 97/51 11/11/17 06:00 O2 Sat by Pulse Oximetry (%) 97 11/10/17 21:00 Constitutional: Yes: No Distress, Thin Cardiovascular: Yes: WNL, Regular Rate and Rhythm. No: Gallop, Murmur, Rub Respiratory: Yes: WNL, Regular, CTA Bilaterally, Cough, Diminished. No: Rhonchi , Tachypnea, Wheezes Gastrointestinal: Yes: WNL, Normal Bowel Sounds, Soft. No: Distention, Tenderness Genitourinary: Yes: Padron Present Edema: No Integumentary: Yes: Pressure Ulcer (sacrum) Wound/Incision: Yes: Dressing Dry and Intact Neurological: Yes: Alert, Aphasia Psychiatric: Yes: Alert Labs: CBC, BMP 11/11/17 06:00 11/11/17 06:00 Problem List - Problems (1) Sepsis Code(s): A41.9 - SEPSIS, UNSPECIFIED ORGANISM Qualifiers: Sepsis type: sepsis due to unspecified organism Qualified Code(s): A41.9 - Sepsis, unspecified organism (2) UTI (urinary tract infection) Code(s): N39.0 - URINARY TRACT INFECTION, SITE NOT SPECIFIED Qualifiers: Urinary tract infection type: acute cystitis Hematuria presence: without hematuria Qualified Code(s): N30.00 - Acute cystitis without hematuria (3) Acute metabolic encephalopathy Code(s): G93.41 - METABOLIC ENCEPHALOPATHY (4) Hyponatremia Code(s): E87.1 - HYPO-OSMOLALITY AND HYPONATREMIA (5) Leukocytosis Code(s): D72.829 - ELEVATED WHITE BLOOD CELL COUNT, UNSPECIFIED (6) DM (diabetes mellitus) Code(s): E11.9 - TYPE 2 DIABETES MELLITUS WITHOUT COMPLICATIONS Qualifiers: Diabetes mellitus type: type 2 Diabetes mellitus superintendent terminal insulin use: without superintendent terminal use (7) Dehydration Code(s): E86.0 - DEHYDRATION (8) AMANDA (acute kidney injury) Code(s): N17.9 - ACUTE KIDNEY FAILURE, UNSPECIFIED (9) Hyperkalemia Code(s): E87.5 - HYPERKALEMIA (10) BPH (benign prostatic hyperplasia) Code(s): N40.0 - BENIGN PROSTATIC HYPERPLASIA WITHOUT LOWER URINRY TRACT SYMP (11) Hemiparesis Code(s): G81.90 - HEMIPLEGIA, UNSPECIFIED AFFECTING UNSPECIFIED SIDE Qualifiers: Cerebrovascular disease type: nontraumatic intracerebral hemorrhage (12) CAD (coronary artery disease) Code(s): I25.10 - ATHSCL HEART DISEASE OF [place] CORONARY ARTERY W/O ANG PCTRS Qualifiers: Coronary Disease-Associated Artery/Lesion type: bypass graft [place] vs. transplanted heart: [place] heart Associated angina: without angina Qualified Code(s): I25.810 - Atherosclerosis of coronary artery bypass graft(s) without angina pectoris (13) HTN (hypertension) Code(s): I10 - ESSENTIAL (PRIMARY) HYPERTENSION Qualifiers: Hypertension type: essential hypertension Qualified Code(s): I10 - Essential (primary) hypertension (14) Acute hypernatremia Code(s): E87.0 - HYPEROSMOLALITY AND HYPERNATREMIA (15) Pressure ulcer of sacral region, stage 2 Code(s): L89.152 - PRESSURE ULCER OF SACRAL REGION, STAGE 2 (16) Poor fluid intake Code(s): R63.8 - OTHER SYMPTOMS AND SIGNS CONCERNING FOOD AND FLUID INTAKE (17) Candidal urinary tract infection Code(s): B37.49 - OTHER UROGENITAL CANDIDIASIS (18) Hypokalemia Code(s): E87.6 - HYPOKALEMIA (19) Hypomagnesemia Code(s): E83.42 - HYPOMAGNESEMIA Assessment/Plan (1) Sepsis Assessment/Plan: febrile overnight, hypotensive, wbcs wnl chest xray without acute findings UA+, blood cultures/ UC pending continue ceftriaxone 6/7 IVF tele monitoring adequate glycemic control Code(s): A41.9 - SEPSIS, UNSPECIFIED ORGANISM Qualifiers: Sepsis type: sepsis due to unspecified organism Qualified Code(s): A41.9 - Sepsis, unspecified organism (2) Candidal urinary tract infection Assessment/Plan: UA positive UC with yeast growth repeat uc pending continue ceftriaxone lactobacillus po diflucan po per ID ivf ID following Code(s): B37.49 - OTHER UROGENITAL CANDIDIASIS (3) Acute metabolic encephalopathy Assessment/Plan: improved Code(s): G93.41 - METABOLIC ENCEPHALOPATHY (4) Acute hypernatremia Assessment/Plan: slightly better, secondary to intravasc volume depletion continue D51/2 ns monitor bmp consider nephrology consult if no improvement Code(s): E87.0 - HYPEROSMOLALITY AND HYPERNATREMIA (5) Leukocytosis Assessment/Plan: improved, secondary to uti/sepsis continue ceftriaxone Code(s): D72.829 - ELEVATED WHITE BLOOD CELL COUNT, UNSPECIFIED (6) Pressure ulcer of sacral region, stage 2 Assessment/Plan: stage 2 pressure ulcer of gluteal cleft, present on admission continue reposition q2hrs apply barrier cream and foam dressing wound/vasc team consulted Code(s): L89.152 - PRESSURE ULCER OF SACRAL REGION, STAGE 2 (7) Poor fluid intake Assessment/Plan: poor po intake at home assisted with feed here speech daniellaal reviewed dysphagia pureed diet, tolerating glucerna/magic cup/ prosource supplements to promote nutrition barium swallow done, no signs of aspiration Code(s): R63.8 - OTHER SYMPTOMS AND SIGNS CONCERNING FOOD AND FLUID INTAKE (8) DM (diabetes mellitus) Assessment/Plan: stable, HgA1c 7.3 on metformin at home, hold in the setting of amanda bgm insulin sliding scale Code(s): E11.9 - TYPE 2 DIABETES MELLITUS WITHOUT COMPLICATIONS Qualifiers: Diabetes mellitus type: type 2 Diabetes mellitus alf insulin use: without alf use (9) Dehydration Assessment/Plan: improving ,secondary to poor po intake ivf Code(s): E86.0 - DEHYDRATION (10) AMANDA (acute kidney injury) Assessment/Plan: improving, secondary to dehydration urine na pending, urine cr wnl renal ultrasound pending IVF Code(s): N17.9 - ACUTE KIDNEY FAILURE, UNSPECIFIED (11) Hyperkalemia Assessment/Plan: resolved Code(s): E87.5 - HYPERKALEMIA (12) BPH (benign prostatic hyperplasia) Assessment/Plan: palpable bladder, padron in place for acute urinary retention cloudy purulent urine renal ultrasound ordered to r/o pyelo flomax and finasteride bladder scan to assess retention consulted Code(s): N40.0 - BENIGN PROSTATIC HYPERPLASIA WITHOUT LOWER URINRY TRACT SYMP (13) Hemiparesis Assessment/Plan: right sided, chronic no acute changes, head ct neg PT as tolerated Code(s): G81.90 - HEMIPLEGIA, UNSPECIFIED AFFECTING UNSPECIFIED SIDE Qualifiers: Cerebrovascular disease type: nontraumatic intracerebral hemorrhage (14) CAD (coronary artery disease) Assessment/Plan: s/p CABG-2004 continue aspirin, atorvastatin Code(s): I25.10 - ATHSCL HEART DISEASE OF [place] CORONARY ARTERY W/O ANG PCTRS Qualifiers: Coronary Disease-Associated Artery/Lesion type: bypass graft [place] vs. transplanted heart: [place] heart Associated angina: without angina Qualified Code(s): I25.810 - Atherosclerosis of coronary artery bypass graft(s) without angina pectoris (15) HTN (hypertension) Assessment/Plan: controlled off of meds on metoprolol and amlodipine at home hold meds in the setting of hypotension Code(s): I10 - ESSENTIAL (PRIMARY) HYPERTENSION Qualifiers: Hypertension type: essential hypertension Qualified Code(s): I10 - Essential (primary) hypertension (16) Hypokalemia Assessment/Plan: K3.6 po potassium 40eq ordered monitor bmp Code(s): E87.6 - HYPOKALEMIA (17) Hypomagnesemia Assessment/Plan: Mg1.6 iv mg 2g ordered monitor bmp Code(s): E83.42 - HYPOMAGNESEMIA Dispo: SNF when clinically stable
[2017-11-11] MEDS ORDERED: POTASSIUM CHLORIDE TABS 20 MEQ TABLET.ER (FP) PO ONE (11:00)
[2017-11-11] MEDS ORDERED: MAGNESIUM SULF 50% (8.12 MEQ/2 ML-1 GM VIAL) IVPB ONE (11:00)
--- NOTE | 2017-11-11 12:02 | PN ---
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 He needs to be fed.
[2017-11-11] MEDS: TAMSULOSIN HCL 0.4 MG CAP.ER.24H (FP) PO SCH (12:08)
[2017-11-11] MEDS: FLUCONAZOLE 100 MG TABLET (UD) PO SCH (12:08)
[2017-11-11] MEDS: ASPIRIN COATED 81 MG TABLET.EC PO SCH (12:08)
[2017-11-11] MEDS: CEFTRIAXONE 1 G/50 ML PREMIX 50 ML IVPB SCH (12:08)
[2017-11-11] MEDS: CLOTRIMAZOLE 1% CREAM 15 GM TUBE TP SCH ×2 (12:09→21:33)
[2017-11-11] MEDS: HEPARIN NA (PORCINE) 5,000 UNITS/ML 1ML VIAL SQ SCH ×2 (12:09→21:33)
[2017-11-11] MEDS: FINASTERIDE 5 MG TABLET (FP) PO SCH (12:09)
[2017-11-11] MEDS ORDERED: PIPERACILLIN/TAZOB 3.375 GM/50 ML PRE-DOCKED IVPB SCH (16:30)
[2017-11-11] MEDS: DEXTROSE 5%-0.45% SALINE 1,000 ML IV SCH (17:28)
[2017-11-11] MEDS: LACTOBACILLUS ACIDOPHILUS 1 EACH TAB (FP) PO SCH (17:28)
[2017-11-11] MEDS: PIPERACILLIN/TAZOB 3.375 GM 3.375 GM in DEXTROSE 5%-WATER - 50 ML IVPB SCH (18:24)
[2017-11-11] MEDS: AMINO ACIDS/PROTEIN HYDROLYS 30 ML LIQUID.PKT PO SCH (18:30)
[2017-11-11] MEDS ORDERED: PT OWN MED DRAWER 7, Y5N ONE (18:51)
[2017-11-11] MEDS: ATORVASTATIN CA 20 MG TABLET (FP) PO SCH (21:33)
[2017-11-12] MEDS ORDERED: PT OWN MED DRAWER 7, Y5N ONE ×2 (01:42→18:14)
[2017-11-12] MEDS: PIPERACILLIN/TAZOB 3.375 GM 3.375 GM in DEXTROSE 5%-WATER - 50 ML IVPB SCH ×3 (01:46→18:23)
[2017-11-12] MEDS: INSULIN SLIDING SCALE (NOVOLOG) 1 VIAL SQ SCH ×2 (06:13→13:12)
[2017-11-12 07:46] LABS: BLOOD UREA NITROGEN 19 mg/dL (7-18); CHLORIDE 117 mmol/L (98-107); POTASSIUM 3.1 mmol/L (3.5-5.1); SODIUM 150 mmol/L (136-145)
[2017-11-12 07:51] LABS: ANION GAP 8 (8-16); CO2 25 mmol/L (21-32); CREATININE 1.1 mg/dL (0.7-1.3); GLUCOSE,RANDOM 155 mg/dL (74-106); MAGNESIUM 1.6 mg/dL (1.8-2.4); PHOSPHOROUS 2.3 mg/dL (2.5-4.9)
[2017-11-12 08:03] LABS: BASO % 0.4 % (0-2.0); EOS % 0.7 % (0-4.5); LYMPH % 27.6 % (8-40); MCH 25.8 pg (25.7-33.7); MCHC 32.2 g/dl (32.0-35.9); MEAN CELL VOLUME 80.3 fl (80-96); MEAN PLT VOLUME 8.6 fl (7.5-11.1); MONO % 8.8 % (3.8-10.2); NEUT % 62.5 % (42.8-82.8); PLATELET COUNT 184 K/MM3 (134-434); RBC 4.24 M/mm3 (4.00-5.60); RDW 17.1 % (11.9-15.9); WHITE BLOOD COUNT 7.1 K/mm3 (4.0-10.0)
[2017-11-12] MEDS: TAMSULOSIN HCL 0.4 MG CAP.ER.24H (FP) PO SCH (08:55)
[2017-11-12] MEDS: AMINO ACIDS/PROTEIN HYDROLYS 30 ML LIQUID.PKT PO SCH ×2 (08:55→18:23)
[2017-11-12] MEDS: DEXTROSE 5%-0.45% SALINE 1,000 ML IV SCH (08:57)
[2017-11-12] MEDS: FLUCONAZOLE 100 MG TABLET (UD) PO SCH ×2 (10:52→17:49)
[2017-11-12] MEDS: CLOTRIMAZOLE 1% CREAM 15 GM TUBE TP SCH ×2 (10:52→21:34)
[2017-11-12] MEDS: LACTOBACILLUS ACIDOPHILUS 1 EACH TAB (FP) PO SCH (10:52)
[2017-11-12] MEDS: FINASTERIDE 5 MG TABLET (FP) PO SCH (10:52)
[2017-11-12] MEDS: HEPARIN NA (PORCINE) 5,000 UNITS/ML 1ML VIAL SQ SCH (10:52)
[2017-11-12] MEDS: ASPIRIN COATED 81 MG TABLET.EC PO SCH (10:52)
--- NOTE | 2017-11-12 11:10 | PN ---
Progress Note, Physician Chief Complaint: pt lying in bed in no acute distress. alert and oriented. denies chest pain, sob , n/v/d - Current Medication List Current Medications: Active Medications Acetaminophen (Tylenol -) 500 mg PO Q6H PRN PRN Reason: FEVER Last Admin: 11/10/17 22:29 Dose: 500 mg Amino Acids (Prosource No Carb Liquid Pkt) 30 ml PO BID@0800,1730 [facility] Last Admin: 11/12/17 08:55 Dose: 30 ml Aspirin (Ecotrin -) 81 mg PO DAILY [facility] Last Admin: 11/12/17 10:52 Dose: 81 mg Atorvastatin Calcium (Lipitor -) 40 mg PO HS [facility] Last Admin: 11/11/17 21:33 Dose: 40 mg Clotrimazole (Lotrimin 1% Cream -) 1 applic TP BID [facility] Last Admin: 11/12/17 10:52 Dose: 1 applic Finasteride (Proscar -) 5 mg PO DAILY [facility] Last Admin: 11/12/17 10:52 Dose: 5 mg Fluconazole (Diflucan -) 100 mg PO DAILY [facility] Last Admin: 11/12/17 10:52 Dose: 100 mg Heparin Sodium (Porcine) (Heparin -) 5,000 unit SQ BID [facility] Last Admin: 11/12/17 10:52 Dose: 5,000 unit Dextrose/Sodium Chloride (D5-1/2ns -) 1,000 mls @ 75 mls/hr IV ASDIR [facility] Last Admin: 11/12/17 08:57 Dose: 75 mls/hr Piperacillin Sod/Tazobactam (Sod 3.375 gm/ Dextrose) 50 mls @ 100 mls/hr IVPB Q8H-IV [facility] Last Admin: 11/12/17 01:46 Dose: 100 mls/hr Insulin Aspart (Novolog Vial Sliding Scale -) 1 vial SQ TIDAC [facility] PRN Reason: Protocol Last Admin: 11/12/17 06:13 Dose: 2 unit Lactobacillus Acidophilus (Bacid -) 1 tab PO DAILY [facility] Last Admin: 11/12/17 10:52 Dose: 1 tab Tamsulosin HCl (Flomax -) 0.4 mg PO DAILY@0830 [facility] Last Admin: 11/12/17 08:55 Dose: 0.4 mg - Objective Vital Signs: Vital Signs Temperature 99 F 11/12/17 05:00 Pulse Rate 80 02/23/18 05:00 Respiratory Rate 20 11/12/17 05:00 Blood Pressure 100/52 11/12/17 05:00 O2 Sat by Pulse Oximetry (%) 95 11/11/17 21:00 Constitutional: Yes: No Distress, Thin Cardiovascular: Yes: Regular Rate and Rhythm. No: Gallop, Murmur, Rub Respiratory: Yes: Regular, CTA Bilaterally, Cough, Diminished (not taking deep breaths). No: Rhonchi, Tachypnea, Wheezes Gastrointestinal: Yes: WNL, Normal Bowel Sounds, Soft. No: Distention, Tenderness Genitourinary: Yes: Padron Present Edema: No Integumentary: Yes: Pressure Ulcer (sacrum) Wound/Incision: Yes: Clean/Dry, Dressing Dry and Intact Neurological: Yes: Alert Psychiatric: Yes: Alert Labs: CBC, BMP 11/12/17 06:20 11/12/17 06:20 Problem List - Problems (1) Sepsis Code(s): A41.9 - SEPSIS, UNSPECIFIED ORGANISM Qualifiers: Sepsis type: sepsis due to unspecified organism Qualified Code(s): A41.9 - Sepsis, unspecified organism (2) UTI (urinary tract infection) Code(s): N39.0 - URINARY TRACT INFECTION, SITE NOT SPECIFIED Qualifiers: Urinary tract infection type: acute cystitis Hematuria presence: without hematuria Qualified Code(s): N30.00 - Acute cystitis without hematuria (3) Acute metabolic encephalopathy Code(s): G93.41 - METABOLIC ENCEPHALOPATHY (4) Hyponatremia Code(s): E87.1 - HYPO-OSMOLALITY AND HYPONATREMIA (5) Leukocytosis Code(s): D72.829 - ELEVATED WHITE BLOOD CELL COUNT, UNSPECIFIED (6) DM (diabetes mellitus) Code(s): E11.9 - TYPE 2 DIABETES MELLITUS WITHOUT COMPLICATIONS Qualifiers: Diabetes mellitus type: type 2 Diabetes mellitus snf insulin use: without snf use (7) Dehydration Code(s): E86.0 - DEHYDRATION (8) AMANDA (acute kidney injury) Code(s): N17.9 - ACUTE KIDNEY FAILURE, UNSPECIFIED (9) Hyperkalemia Code(s): E87.5 - HYPERKALEMIA (10) BPH (benign prostatic hyperplasia) Code(s): N40.0 - BENIGN PROSTATIC HYPERPLASIA WITHOUT LOWER URINRY TRACT SYMP (11) Hemiparesis Code(s): G81.90 - HEMIPLEGIA, UNSPECIFIED AFFECTING UNSPECIFIED SIDE Qualifiers: Cerebrovascular disease type: nontraumatic intracerebral hemorrhage (12) CAD (coronary artery disease) Code(s): I25.10 - ATHSCL HEART DISEASE OF [place] CORONARY ARTERY W/O ANG PCTRS Qualifiers: Coronary Disease-Associated Artery/Lesion type: bypass graft [place] vs. transplanted heart: [place] heart Associated angina: without angina Qualified Code(s): I25.810 - Atherosclerosis of coronary artery bypass graft(s) without angina pectoris (13) HTN (hypertension) Code(s): I10 - ESSENTIAL (PRIMARY) HYPERTENSION Qualifiers: Hypertension type: essential hypertension Qualified Code(s): I10 - Essential (primary) hypertension (14) Acute hypernatremia Code(s): E87.0 - HYPEROSMOLALITY AND HYPERNATREMIA (15) Pressure ulcer of sacral region, stage 2 Code(s): L89.152 - PRESSURE ULCER OF SACRAL REGION, STAGE 2 (16) Poor fluid intake Code(s): R63.8 - OTHER SYMPTOMS AND SIGNS CONCERNING FOOD AND FLUID INTAKE (17) Candidal urinary tract infection Code(s): B37.49 - OTHER UROGENITAL CANDIDIASIS (18) Hypokalemia Code(s): E87.6 - HYPOKALEMIA (19) Hypomagnesemia Code(s): E83.42 - HYPOMAGNESEMIA Assessment/Plan (1) Sepsis Assessment/Plan: febrile overnight, hypotensive, wbcs wnl chest xray without acute findings UA+, blood cultures/ UC with mari received ceftriaxone 03/26 case discussed with ID, pt started on zosyn IVF tele monitoring adequate glycemic control Code(s): A41.9 - SEPSIS, UNSPECIFIED ORGANISM Qualifiers: Sepsis type: sepsis due to unspecified organism Qualified Code(s): A41.9 - Sepsis, unspecified organism (2) Candidal urinary tract infection Assessment/Plan: UA positive UC with mari lactobacillus po received diflucan po 4 doses ivf ID following Code(s): B37.49 - OTHER UROGENITAL CANDIDIASIS (3) Acute metabolic encephalopathy Assessment/Plan: resolved Code(s): G93.41 - METABOLIC ENCEPHALOPATHY (4) Acute hypernatremia Assessment/Plan: improving continue D51/2 ns monitor bmp Code(s): E87.0 - HYPEROSMOLALITY AND HYPERNATREMIA (5) Leukocytosis Assessment/Plan: resolved Code(s): D72.829 - ELEVATED WHITE BLOOD CELL COUNT, UNSPECIFIED (6) Pressure ulcer of sacral region, stage 2 Assessment/Plan: stage 2 pressure ulcer of gluteal cleft, present on admission continue reposition q2hrs apply barrier cream and foam dressing Code(s): L89.152 - PRESSURE ULCER OF [place]CR[place] REG[place], STAGE 2 (7) Poor fluid intake Assessment/Plan: poor po intake at home assisted with feed here speech eval reviewed dysphagia pureed diet, tolerating glucerna/magic cup/ prosource supplements to promote nutrition barium swallow done, no signs of aspiration Code(s): R63.8 - OTHER SYMPTOMS AND SIGNS CONCERNING FOOD AND FLUID INTAKE (8) DM (diabetes mellitus) Assessment/Plan: stable, HgA1c 7.3 metformin restarted bgm insulin sliding scale Code(s): E11.9 - TYPE 2 DIABETES MELLITUS WITHOUT COMPLICATIONS Qualifiers: Diabetes mellitus type: type 2 Diabetes mellitus moth exterminator insulin use: without moth exterminator use (9) Dehydration Assessment/Plan: improving ,secondary to poor po intake ivf Code(s): E86.0 - DEHYDRATION (10) AMANDA (acute kidney injury) Assessment/Plan: improving, secondary to dehydration urine na pending, urine cr wnl renal ultrasound pending IVF Code(s): N17.9 - ACUTE KIDNEY FAILURE, UNSPECIFIED (11) Hyperkalemia Assessment/Plan: resolved Code(s): E87.5 - HYPERKALEMIA (12) BPH (benign prostatic hyperplasia) Assessment/Plan: padron in place for acute urinary retention cloudy purulent urine renal ultrasound ordered to r/o pyelo /obstr flomax and finasteride bladder scan to assess retention consulted Code(s): N40.0 - BENIGN PROSTATIC HYPERPLASIA WITHOUT LOWER URINRY TRACT SYMP (13) Hemiparesis Assessment/Plan: right sided, chronic no acute changes, head ct neg PT as tolerated Code(s): G81.90 - HEMIPLEGIA, UNSPECIFIED AFFECTING UNSPECIFIED SIDE Qualifiers: Cerebrovascular disease type: nontraumatic intracerebral hemorrhage (14) CAD (coronary artery disease) Assessment/Plan: s/p CABG-2004 continue aspirin, atorvastatin Code(s): I25.10 - ATHSCL HEART DISEASE OF [place] CORONARY ARTERY W/O ANG PCTRS Qualifiers: Coronary Disease-Associated Artery/Lesion type: bypass graft [place] vs. transplanted heart: [place] Associated angina: without angina Qualified Code(s): I25.810 - Atherosclerosis of coronary artery bypass graft(s) without angina pectoris (15) HTN (hypertension) Assessment/Plan: controlled off of meds on metoprolol and amlodipine at home hold meds in the setting of hypotension Code(s): I10 - ESSENTIAL (PRIMARY) HYPERTENSION Qualifiers: Hypertension type: essential hypertension Qualified Code(s): I10 - Essential (primary) hypertension (16) Hypokalemia Assessment/Plan: K3.1 iv kcl 10meq x3 monitor bmp Code(s): E87.6 - HYPOKALEMIA (17) Hypomagnesemia Assessment/Plan: Mg1.6 iv mg 2g ordered monitor bmp Code(s): E83.42 - HYPOMAGNESEMIA Dispo: SNF when clinically stable
[2017-11-12] MEDS ORDERED: MAGNESIUM SULF 50% (8.12 MEQ/2 ML-1 GM VIAL) IVPB ONE (11:12)
[2017-11-12] MEDS ORDERED: MAGNESIUM SULFATE IN WATER 2 GM/50 ML IVPB IVPB ONE (13:00)
--- NOTE | 2017-11-12 13:06 | PN ---
Progress Note (short form) - Note Progress Note: awake and alert no complaints now with padron Vital Signs Period Temp Pulse Resp BP Sys/Zamudio Pulse Ox Last 24 Hr 99 F-100.7 F 80-89 16-20 95-116/48-56 95 cor-rrr lungs scattered rhonchi abd soft,nt ext no edema CBC, BMP 11/12/17 06:20 11/12/17 06:20 Microbiology 11/10/17 19:00 Urine - Urine - Catheterized Urine Culture - Final Yeast Like Organism 11/10/17 17:30 Blood - Peripheral Venous Blood Culture - Preliminary NO GROWTH OBTAINED AFTER 24 HOURS, INCUBATION TO CONTINUE FOR 4 DAYS. 11/10/17 15:20 Blood - Peripheral Venous Blood Culture - Preliminary NO GROWTH OBTAINED AFTER 24 HOURS, INCUBATION TO CONTINUE FOR 4 DAYS. 11/05/17 21:45 Blood - Peripheral Venous Blood Culture - Final NO GROWTH AFTER 5 DAYS INCUBATION 11/05/17 21:25 Blood - Peripheral Venous Blood Culture - Final NO GROWTH AFTER 5 DAYS INCUBATION 11/05/17 14:25 Urine - Urine Clean Catch Urine Culture - Final Yeast Like Organism renal sono- ?mild left hydro cxray no infiltrate a/p dehydration urinary retention-bph meds resumed, padron intact fevers suggest ct scan of abd/pelvis - r/o kidney stone continue zosyn continue diflucan d/w daughter at bedside
[2017-11-12] MEDS: POTASSIUM CHLORIDE 10 MEQ in SODIUM CHLORIDE 100 ML IVPB SCH ×3 (14:55→17:10)
[2017-11-12] MEDS: ATORVASTATIN CA 20 MG TABLET (FP) PO SCH (21:33)
[2017-11-12] MEDS: metFORMIN HCL 500 MG TABLET (FP) PO SCH (21:34)
[2017-11-13] MEDS: PIPERACILLIN/TAZOB 3.375 GM 3.375 GM in DEXTROSE 5%-WATER - 50 ML IVPB SCH ×3 (01:55→17:15)
[2017-11-13] MEDS: DEXTROSE 5%-0.45% SALINE 1,000 ML IV SCH ×2 (02:51→10:59)
[2017-11-13] MEDS: metFORMIN HCL 500 MG TABLET (FP) PO SCH ×3 (06:41→17:15)
[2017-11-13 07:57] LABS: BASO % 0.3 % (0-2.0); EOS % 3.3 % (0-4.5); HEMATOCRIT 34.8 % (35.4-49); HEMOGLOBIN 11.1 GM/dL (11.7-16.9); LYMPH % 32.8 % (8-40); MCH 25.6 pg (25.7-33.7); MCHC 31.8 g/dl (32.0-35.9); MEAN CELL VOLUME 80.5 fl (80-96); MEAN PLT VOLUME 8.5 fl (7.5-11.1); MONO % 8.2 % (3.8-10.2); NEUT % 55.4 % (42.8-82.8); PLATELET COUNT 174 K/MM3 (134-434); RBC 4.32 M/mm3 (4.00-5.60); RDW 17.2 % (11.9-15.9); WHITE BLOOD COUNT 5.7 K/mm3 (4.0-10.0)
[2017-11-13 08:21] LABS: ALBUMIN 1.7 g/dl (3.4-5.0); ALK PHOS 71 U/L (45-117); BILIRUBIN,DIRECT < 0.2 mg/dL (0.0-0.2); BILIRUBIN,TOTAL 0.3 mg/dL (0.2-1.0); SGOT/AST 20 U/L (15-37); SGPT/ALT 19 U/L (12-78); TOT PROT 5.1 g/dl (6.4-8.2)
[2017-11-13 08:23] LABS: ANION GAP 7 (8-16); BLOOD UREA NITROGEN 16 mg/dL (7-18); CHLORIDE 115 mmol/L (98-107); CO2 28 mmol/L (21-32); GLUCOSE,RANDOM 120 mg/dL (74-106); MAGNESIUM 1.8 mg/dL (1.8-2.4); PHOSPHOROUS 1.7 mg/dL (2.5-4.9); POTASSIUM 3.2 mmol/L (3.5-5.1); SODIUM 150 mmol/L (136-145)
[2017-11-13] MEDS ORDERED: MAGNESIUM SULFATE IN WATER 2 GM/50 ML IVPB IVPB ONE (08:45)
[2017-11-13] MEDS ORDERED: PT OWN MED DRAWER 7, Y5N ONE ×2 (09:13→17:13)
--- NOTE | 2017-11-13 09:22 | PN ---
Progress Note, Physician Chief Complaint: ID Zosyn and diflucam Alert NAD - Current Medication List Current Medications: Active Medications Acetaminophen (Tylenol -) 500 mg PO Q6H PRN PRN Reason: FEVER Last Admin: 11/10/17 22:29 Dose: 500 mg Amino Acids (Prosource No Carb Liquid Pkt) 30 ml PO BID@0800,1730 [facility] Last Admin: 11/12/17 18:23 Dose: Not Given Aspirin (Ecotrin -) 81 mg PO DAILY [facility] Last Admin: 11/12/17 10:52 Dose: 81 mg Atorvastatin Calcium (Lipitor -) 40 mg PO HS [facility] Last Admin: 11/12/17 21:33 Dose: 40 mg Clotrimazole (Lotrimin 1% Cream -) 1 applic TP BID [facility] Last Admin: 11/12/17 21:34 Dose: 1 applic Finasteride (Proscar -) 5 mg PO DAILY [facility] Last Admin: 11/12/17 10:52 Dose: 5 mg Fluconazole (Diflucan -) 100 mg PO DAILY [facility] Last Admin: 11/12/17 17:49 Dose: Not Given Dextrose/Sodium Chloride (D5-1/2ns -) 1,000 mls @ 75 mls/hr IV ASDIR [facility] Last Admin: 11/13/17 02:51 Dose: 75 mls/hr Piperacillin Sod/Tazobactam (Sod 3.375 gm/ Dextrose) 50 mls @ 100 mls/hr IVPB Q8H-IV [facility] Last Admin: 11/13/17 01:55 Dose: 100 mls/hr Potassium Chloride 10 meq/ (Sodium Chloride) 105 mls @ 100 mls/hr IVPB Q60M [facility] Stop: 11/13/17 11:44 MAGNESIUM SULFATE IN WATER (Magnesium Sulf 2 G/50 Ml Bag) 2 gm in 50 mls @ 50 mls/hr IVPB ONCE ONE Stop: 11/13/17 09:44 Potassium Phosphate 30 mm/ (Dextrose) 510 mls @ 62.5 mls/hr IVPB ONCE ONE Stop: 11/13/17 19:54 Lactobacillus Acidophilus (Bacid -) 1 tab PO DAILY [facility] Last Admin: 11/12/17 10:52 Dose: 1 tab Metformin HCl (Glucophage -) 500 mg PO BIDAC [facility] Last Admin: 11/13/17 06:41 Dose: Not Given Tamsulosin HCl (Flomax -) 0.4 mg PO DAILY@0830 [facility] Last Admin: 11/12/17 08:55 Dose: 0.4 mg - Objective Vital Signs: Vital Signs Temperature 98.1 F 11/13/17 06:00 Pulse Rate 71 11/13/17 06:00 Respiratory Rate 20 11/13/17 06:00 Blood Pressure 98/51 11/13/17 06:00 O2 Sat by Pulse Oximetry (%) 94 L 11/12/17 21:00 Constitutional: Yes: No Distress Neck: Yes: WNL, Supple Cardiovascular: Yes: Regular Rate and Rhythm, S1, S2 Respiratory: Yes: WNL, Regular, CTA Bilaterally. No: Rales Gastrointestinal: Yes: WNL, Normal Bowel Sounds, Soft. No: Tenderness Edema: No Labs: CBC, BMP 11/13/17 07:00 11/13/17 07:00 Problem List - Problems (1) AMANDA (acute kidney injury) Code(s): N17.9 - ACUTE KIDNEY FAILURE, UNSPECIFIED (2) Acute metabolic encephalopathy Code(s): G93.41 - METABOLIC ENCEPHALOPATHY (3) DM (diabetes mellitus) Code(s): E11.9 - TYPE 2 DIABETES MELLITUS WITHOUT COMPLICATIONS Qualifiers: Diabetes mellitus type: type 2 Diabetes mellitus terminologist insulin use: without terminologist use (4) UTI (urinary tract infection) Code(s): N39.0 - URINARY TRACT INFECTION, SITE NOT SPECIFIED Qualifiers: Urinary tract infection type: acute cystitis Hematuria presence: without hematuria Qualified Code(s): N30.00 - Acute cystitis without hematuria Assessment/Plan Microbiology 11/10/17 19:00 Urine - Urine - Catheterized Urine Culture - Final Yeast Like Organism 11/05/17 14:25 Urine - Urine Clean Catch Urine Culture - Final Yeast Like Organism Laboratory Tests 11/10/17 11/13/17 19:00 07:00 WBC 5.7 RBC 4.32 Hct 34.8 L Plt Count 174 Ur Leukocyte Esterase 3+ H Urine WBC (Auto) 1661 Assessment Urinary tract infection growing Pavithra Plan Tomorrow stop the Zosyn and given Vantin 100mg bid along with oral diflucan and treat few more days isaak Hand MD
[2017-11-13] MEDS: LACTOBACILLUS ACIDOPHILUS 1 EACH TAB (FP) PO SCH (09:28)
[2017-11-13] MEDS: TAMSULOSIN HCL 0.4 MG CAP.ER.24H (FP) PO SCH (09:28)
[2017-11-13] MEDS: AMINO ACIDS/PROTEIN HYDROLYS 30 ML LIQUID.PKT PO SCH ×2 (09:28→17:16)
[2017-11-13] MEDS: FINASTERIDE 5 MG TABLET (FP) PO SCH (09:30)
[2017-11-13] MEDS: CLOTRIMAZOLE 1% CREAM 15 GM TUBE TP SCH ×2 (09:30→22:13)
[2017-11-13] MEDS: FLUCONAZOLE 100 MG TABLET (UD) PO SCH (09:30)
--- NOTE | 2017-11-13 10:05 | PN ---
Progress Note, Physician Chief Complaint: pt lying in bed in no acute distress. alert and oriented. denies chest pain, sob , n/v/d. staff reported pt had 2 episodes of vomiting yesterday, since then pt doing well, tolerated breakfast today. - Current Medication List Current Medications: Active Medications Acetaminophen (Tylenol -) 500 mg PO Q6H PRN PRN Reason: FEVER Last Admin: 11/10/17 22:29 Dose: 500 mg Amino Acids (Prosource No Carb Liquid Pkt) 30 ml PO BID@0800,1730 [facility] Last Admin: 11/13/17 09:28 Dose: 30 ml Aspirin (Ecotrin -) 81 mg PO DAILY [facility] Last Admin: 11/12/17 10:52 Dose: 81 mg Atorvastatin Calcium (Lipitor -) 40 mg PO HS [facility] Last Admin: 11/12/17 21:33 Dose: 40 mg Clotrimazole (Lotrimin 1% Cream -) 1 applic TP BID [facility] Last Admin: 11/13/17 09:30 Dose: 1 applic Finasteride (Proscar -) 5 mg PO DAILY [facility] Last Admin: 11/13/17 09:30 Dose: 5 mg Fluconazole (Diflucan -) 100 mg PO DAILY [facility] Last Admin: 11/13/17 09:30 Dose: 100 mg Dextrose/Sodium Chloride (D5-1/2ns -) 1,000 mls @ 75 mls/hr IV ASDIR [facility] Last Admin: 11/13/17 02:51 Dose: 75 mls/hr Piperacillin Sod/Tazobactam (Sod 3.375 gm/ Dextrose) 50 mls @ 100 mls/hr IVPB Q8H-IV [facility] Last Admin: 11/13/17 09:27 Dose: 100 mls/hr Potassium Chloride 10 meq/ (Sodium Chloride) 105 mls @ 100 mls/hr IVPB Q60M [facility] Stop: 11/13/17 11:44 Potassium Phosphate 30 mm/ (Dextrose) 510 mls @ 62.5 mls/hr IVPB ONCE ONE Stop: 11/13/17 19:54 Lactobacillus Acidophilus (Bacid -) 1 tab PO DAILY [facility] Last Admin: 11/13/17 09:28 Dose: 1 tab Metformin HCl (Glucophage -) 500 mg PO BIDAC [facility] Last Admin: 11/13/17 09:28 Dose: 500 mg Tamsulosin HCl (Flomax -) 0.4 mg PO DAILY@0830 [facility] Last Admin: 11/13/17 09:28 Dose: 0.4 mg - Objective Vital Signs: Vital Signs Temperature 98.1 F 11/13/17 06:00 Pulse Rate 71 11/13/17 06:00 Respiratory Rate 20 11/13/17 06:00 Blood Pressure 98/51 11/13/17 06:00 O2 Sat by Pulse Oximetry (%) 94 L 11/12/17 21:00 Constitutional: Yes: No Distress, Thin Cardiovascular: Yes: Regular Rate and Rhythm. No: Murmur, Rub Respiratory: Yes: Regular, Diminished, Rhonchi Gastrointestinal: Yes: Normal Bowel Sounds, Soft. No: Distention, Tenderness Genitourinary: Yes: Padron Present Edema: No Integumentary: Yes: Pressure Ulcer (sacrum, stage 2) Wound/Incision: Yes: Dressing Dry and Intact Neurological: Yes: Alert, Aphasia Psychiatric: Yes: Alert, Oriented Labs: CBC, BMP 11/13/17 07:00 11/13/17 07:00 - ....Imaging Cat Scan: Report Reviewed Ultrasound: Report Reviewed Problem List - Problems (1) Sepsis Code(s): A41.9 - SEPSIS, UNSPECIFIED ORGANISM Qualifiers: Sepsis type: sepsis due to unspecified organism Qualified Code(s): A41.9 - Sepsis, unspecified organism (2) UTI (urinary tract infection) Code(s): N39.0 - URINARY TRACT INFECTION, SITE NOT SPECIFIED Qualifiers: Urinary tract infection type: acute cystitis Hematuria presence: without hematuria Qualified Code(s): N30.00 - Acute cystitis without hematuria (3) Acute metabolic encephalopathy Code(s): G93.41 - METABOLIC ENCEPHALOPATHY (4) Hyponatremia Code(s): E87.1 - HYPO-OSMOLALITY AND HYPONATREMIA (5) Leukocytosis Code(s): D72.829 - ELEVATED WHITE BLOOD CELL COUNT, UNSPECIFIED (6) DM (diabetes mellitus) Code(s): E11.9 - TYPE 2 DIABETES MELLITUS WITHOUT COMPLICATIONS Qualifiers: Diabetes mellitus type: type 2 Diabetes mellitus nursing home insulin use: without meterman use (7) Dehydration Code(s): E86.0 - DEHYDRATION (8) AMANDA (acute kidney injury) Code(s): N17.9 - ACUTE KIDNEY FAILURE, UNSPECIFIED (9) Hyperkalemia Code(s): E87.5 - HYPERKALEMIA (10) BPH (benign prostatic hyperplasia) Code(s): N40.0 - BENIGN PROSTATIC HYPERPLASIA WITHOUT LOWER URINRY TRACT SYMP (11) Hemiparesis Code(s): G81.90 - HEMIPLEGIA, UNSPECIFIED AFFECTING UNSPECIFIED SIDE Qualifiers: Cerebrovascular disease type: nontraumatic intracerebral hemorrhage (12) CAD (coronary artery disease) Code(s): I25.10 - ATHSCL HEART DISEASE OF [place] CORONARY ARTERY W/O ANG PCTRS Qualifiers: Coronary Disease-Associated Artery/Lesion type: bypass graft [place] vs. transplanted heart: [place] heart Associated angina: without angina Qualified Code(s): I25.810 - Atherosclerosis of coronary artery bypass graft(s) without angina pectoris (13) HTN (hypertension) Code(s): I10 - ESSENTIAL (PRIMARY) HYPERTENSION Qualifiers: Hypertension type: essential hypertension Qualified Code(s): I10 - Essential (primary) hypertension (14) Acute hypernatremia Code(s): E87.0 - HYPEROSMOLALITY AND HYPERNATREMIA (15) Pressure ulcer of sacral region, stage 2 Code(s): L89.152 - PRESSURE ULCER OF SACRAL REGION, STAGE 2 (16) Poor fluid intake Code(s): R63.8 - OTHER SYMPTOMS AND SIGNS CONCERNING FOOD AND FLUID INTAKE (17) Candidal urinary tract infection Code(s): B37.49 - OTHER UROGENITAL CANDIDIASIS (18) Hypokalemia Code(s): E87.6 - HYPOKALEMIA (19) Hypomagnesemia Code(s): E83.42 - HYPOMAGNESEMIA (20) Hypophosphatemia Code(s): E83.39 - OTHER DISORDERS OF PHOSPHORUS METABOLISM Assessment/Plan (1) SIRS Assessment/Plan: afebrile, still hypotensive, wbcs wnl chest xray without acute findings UA+, blood cultures neg / UC with mari received ceftriaxone 7/ zosyn, ID following IVF tele monitoring adequate glycemic control Code(s): A41.9 - SEPSIS, UNSPECIFIED ORGANISM Qualifiers: Sepsis type: sepsis due to unspecified organism Qualified Code(s): A41.9 - Sepsis, unspecified organism (2) Candidal urinary tract infection Assessment/Plan: UA positive UC with mari lactobacillus po diflucan dose 5 ivf ID following Code(s): B37.49 - OTHER UROGENITAL CANDIDIASIS (3) Acute metabolic encephalopathy Assessment/Plan: resolved Code(s): G93.41 - METABOLIC ENCEPHALOPATHY (4) Acute hypernatremia Assessment/Plan: improving continue D51/2 ns monitor bmp Code(s): E87.0 - HYPEROSMOLALITY AND HYPERNATREMIA (5) Leukocytosis Assessment/Plan: resolved Code(s): D72.829 - ELEVATED WHITE BLOOD CELL COUNT, UNSPECIFIED (6) Pressure ulcer of sacral region, stage 2 Assessment/Plan: stage 2 pressure ulcer of gluteal cleft, present on admission continue reposition q2hrs apply barrier cream and foam dressing Code(s): L89.152 - PRESSURE ULCER OF [place]CR[place] REG[place], STAGE 2 (7) Poor fluid intake Assessment/Plan: poor po intake at home assisted with feed here speech eval reviewed dysphagia pureed diet, tolerating glucerna/magic cup/ prosource supplements to promote nutrition barium swallow done, no signs of aspiration Code(s): R63.8 - OTHER SYMPTOMS AND SIGNS CONCERNING FOOD AND FLUID INTAKE (8) DM (diabetes mellitus) Assessment/Plan: stable, HgA1c 7.3 continue metformin bgm Code(s): E11.9 - TYPE 2 DIABETES MELLITUS WITHOUT COMPLICATIONS Qualifiers: Diabetes mellitus type: type 2 Diabetes mellitus meterman insulin use: without nursing home use (9) Dehydration Assessment/Plan: improving ,secondary to poor po intake ivf Code(s): E86.0 - DEHYDRATION (10) AMANDA (acute kidney injury) Assessment/Plan: improving, secondary to dehydration urine na pending, urine cr wnl renal ultrasound with mild left renal hydronephrosis Abd CT with left hydronephrosis, air within renal pelvis and ureter IVF Urology consult pending Code(s): N17.9 - ACUTE KIDNEY FAILURE, UNSPECIFIED (11) Hyperkalemia Assessment/Plan: resolved Code(s): E87.5 - HYPERKALEMIA (12) BPH (benign prostatic hyperplasia) Assessment/Plan: padron in place for acute urinary retention cloudy purulent urine flomax and finasteride consult pending Code(s): N40.0 - BENIGN PROSTATIC HYPERPLASIA WITHOUT LOWER URINRY TRACT SYMP (13) Hemiparesis Assessment/Plan: right sided, chronic no acute changes, head ct neg PT as tolerated Code(s): G81.90 - HEMIPLEGIA, UNSPECIFIED AFFECTING UNSPECIFIED SIDE Qualifiers: Cerebrovascular disease type: nontraumatic intracerebral hemorrhage (14) CAD (coronary artery disease) Assessment/Plan: s/p CABG-2004 continue aspirin, atorvastatin Code(s): I25.10 - ATHSCL HEART DISEASE OF [place] CORONARY ARTERY W/O ANG PCTRS Qualifiers: Coronary Disease-Associated Artery/Lesion type: bypass graft [place] vs. transplanted heart: [place] heart Associated angina: without angina Qualified Code(s): I25.810 - Atherosclerosis of coronary artery bypass graft(s) without angina pectoris (15) HTN (hypertension) Assessment/Plan: controlled off of meds on metoprolol and amlodipine at home hold meds in the setting of hypotension Code(s): I10 - ESSENTIAL (PRIMARY) HYPERTENSION Qualifiers: Hypertension type: essential hypertension Qualified Code(s): I10 - Essential (primary) hypertension (16) Hypokalemia Assessment/Plan: K3.2 iv kcl 10meq x3 monitor bmp Code(s): E87.6 - HYPOKALEMIA (17) Hypomagnesemia Assessment/Plan: Mg1.8 iv mg 2g ordered monitor bmp Code(s): E83.42 - HYPOMAGNESEMIA Dispo: SNF when clinically stable
[2017-11-13] MEDS: ASPIRIN COATED 81 MG TABLET.EC PO SCH (10:59)
[2017-11-13] MEDS ORDERED: POTASSIUM PHOSPHATE 30 MM in DEXTROSE 5%-WATER - 500 ML IVPB ONE (11:45)
[2017-11-13] MEDS: POTASSIUM CHLORIDE 10 MEQ in SODIUM CHLORIDE 100 ML IVPB SCH ×3 (12:14→15:54)
--- NOTE | 2017-11-13 12:47 | CON.GU ---
Consult Consult Specialty:: Urology Reason for Consultation:: UTI left Hydronephrosis - History of Present Illness Chief Complaint: Left flank pain obstructive voiding symptoms - History Source History Provided By: Patient, Medical Record - Past Medical History [employer]ER: Yes: CVA (hemorrhagic, 2016) Cardio/Vascular: Yes: CAD, HTN, Hyperlipdemia Renal/: Yes: BPH Musculoskeletal: Yes: Hemiparesis (right) Endocrine: Yes: Diabetes Mellitus - Past Surgical History Past Surgical History: Yes: CABG (2004) - Alcohol/Substance Use Hx Alcohol Use: No History of Substance Use: reports: None - Smoking History Smoking history: Former smoker Have you smoked in the past 12 months: No - Social History ADL: Support Services History of Recent Travel: No Home Medications - Allergies Allergies/Adverse Reactions: Allergies Allergy/AdvReac Type Severity Reaction Status Date / Time No Known Allergies Allergy Verified 11/05/17 12:45 - Home Medications Home Medications: Ambulatory Orders Aspirin [ASA -] 81 mg PO DAILY 11/05/17 Finasteride [Proscar -] 5 mg PO DAILY 11/05/17 Levofloxacin [Levaquin] 500 mg PO DAILY 11/05/17 Metformin HCl 500 mg PO BID 11/05/17 Metoprolol Tartrate 25 mg PO BID 11/05/17 Simvastatin 40 mg PO HS 11/05/17 Tamsulosin HCl 0.4 mg PO DAILY 11/05/17 Physical Exam- Vital Signs: Vital Signs Temperature 98.1 F 11/13/17 06:00 Pulse Rate 71 11/13/17 06:00 Respiratory Rate 20 11/13/17 06:00 Blood Pressure 98/51 11/13/17 06:00 O2 Sat by Pulse Oximetry (%) 94 L 11/12/17 21:00 Labs: CBC, BMP 11/13/17 07:00 11/13/17 07:00 Imaging - Results Cat Scan: Report Reviewed Ultrasound: Report Reviewed Problem List - Problems (1) BPH (benign prostatic hyperplasia) Code(s): N40.0 - BENIGN PROSTATIC HYPERPLASIA WITHOUT LOWER URINRY TRACT SYMP (2) UTI (urinary tract infection) Code(s): N39.0 - URINARY TRACT INFECTION, SITE NOT SPECIFIED Qualifiers: Urinary tract infection type: acute cystitis Hematuria presence: without hematuria Qualified Code(s): N30.00 - Acute cystitis without hematuria Assessment/Plan Fungal sepsis improving [place] clear slight cloudiness cont to SD Left mild hydro poss chronic air poss from recent cath (XGP kidney unlikely) if clinically warrented may order renal scan w lasix to R/O obstruction Cr stable
[2017-11-13] MEDS: ACETAMINOPHEN 500 MG TABLET (FP) PO PRN (22:02)
[2017-11-13] MEDS: ATORVASTATIN CA 20 MG TABLET (FP) PO SCH (22:02)
[2017-11-14] MEDS ORDERED: PT OWN MED DRAWER 7, Y5N ONE ×3 (02:36→20:42)
[2017-11-14] MEDS: PIPERACILLIN/TAZOB 3.375 GM 3.375 GM in DEXTROSE 5%-WATER - 50 ML IVPB SCH ×2 (03:00→09:19)
[2017-11-14] MEDS: DEXTROSE 5%-0.45% SALINE 1,000 ML IV SCH (05:21)
[2017-11-14] MEDS: metFORMIN HCL 500 MG TABLET (FP) PO SCH ×2 (06:24→17:41)
[2017-11-14 07:44] LABS: BASO % 0.4 % (0-2.0); EOS % 2.1 % (0-4.5); HEMATOCRIT 31.7 % (35.4-49); HEMOGLOBIN 10.2 GM/dL (11.7-16.9); LYMPH % 35.5 % (8-40); MCH 25.6 pg (25.7-33.7); MEAN CELL VOLUME 80.1 fl (80-96); MEAN PLT VOLUME 8.6 fl (7.5-11.1); MONO % 8.1 % (3.8-10.2); NEUT % 53.9 % (42.8-82.8); PLATELET COUNT 165 K/MM3 (134-434); RBC 3.96 M/mm3 (4.00-5.60); RDW 17.2 % (11.9-15.9)
[2017-11-14 08:10] LABS: ANION GAP 7 (8-16); BLOOD UREA NITROGEN 13 mg/dL (7-18); CHLORIDE 115 mmol/L (98-107); CO2 28 mmol/L (21-32); GLUCOSE,RANDOM 112 mg/dL (74-106); MAGNESIUM 1.6 mg/dL (1.8-2.4); POTASSIUM 3.5 mmol/L (3.5-5.1); SODIUM 150 mmol/L (136-145)
[2017-11-14 08:14] LABS: CREATININE 0.9 mg/dL (0.7-1.3); PHOSPHOROUS 2.8 mg/dL (2.5-4.9)
[2017-11-14] MEDS ORDERED: MAGNESIUM SULF 50% (8.12 MEQ/2 ML-1 GM VIAL) IVPB ONE (08:19)
[2017-11-14] MEDS ORDERED: DEXTROSE 5%-0.45% SALINE 980 ML with POTASSIUM CHLORIDE 40 MEQ IVPB SCH (08:23)
[2017-11-14 08:26] LABS: CALCIUM 6.9 mg/dL (8.5-10.1)
[2017-11-14] MEDS ORDERED: MAGNESIUM SULFATE IN WATER 2 GM/50 ML IVPB IVPB ONE (08:30)
[2017-11-14] MEDS ORDERED: D5-1/2NS+40 MEQ KCL - 40 MEQ/1,000 ML INFUS.BAG IV SCH (08:30)
[2017-11-14] MEDS: AMINO ACIDS/PROTEIN HYDROLYS 30 ML LIQUID.PKT PO SCH ×2 (09:14→17:41)
[2017-11-14] MEDS: LACTOBACILLUS ACIDOPHILUS 1 EACH TAB (FP) PO SCH (09:14)
[2017-11-14] MEDS: TAMSULOSIN HCL 0.4 MG CAP.ER.24H (FP) PO SCH (09:14)
[2017-11-14] MEDS: FLUCONAZOLE 100 MG TABLET (UD) PO SCH (09:15)
[2017-11-14] MEDS: ASPIRIN COATED 81 MG TABLET.EC PO SCH (09:15)
[2017-11-14] MEDS: FINASTERIDE 5 MG TABLET (FP) PO SCH (09:19)
--- NOTE | 2017-11-14 09:39 | PN ---
Progress Note, Physician Chief Complaint: pt lying in bed in no acute distress. alert and oriented. appears congested/ coughing, non prod. denies chest pain, sob, n/v/d. - Current Medication List Current Medications: Active Medications Acetaminophen (Tylenol -) 500 mg PO Q6H PRN PRN Reason: FEVER Last Admin: 11/13/17 22:02 Dose: 500 mg Amino Acids (Prosource No Carb Liquid Pkt) 30 ml PO BID@0800,1730 [facility] Last Admin: 11/14/17 09:14 Dose: 30 ml Aspirin (Ecotrin -) 81 mg PO DAILY [facility] Last Admin: 11/14/17 09:15 Dose: 81 mg Atorvastatin Calcium (Lipitor -) 40 mg PO HS [facility] Last Admin: 11/13/17 22:02 Dose: 40 mg Clotrimazole (Lotrimin 1% Cream -) 1 applic TP BID [facility] Last Admin: 11/13/17 22:13 Dose: 1 applic Finasteride (Proscar -) 5 mg PO DAILY [facility] Last Admin: 11/14/17 09:19 Dose: 5 mg Fluconazole (Diflucan -) 100 mg PO DAILY [facility] Last Admin: 11/14/17 09:15 Dose: 100 mg Piperacillin Sod/Tazobactam (Sod 3.375 gm/ Dextrose) 50 mls @ 100 mls/hr IVPB Q8H-IV [facility] Last Admin: 11/14/17 09:19 Dose: 100 mls/hr Potassium Chloride 10 meq/ (Sodium Chloride) 105 mls @ 100 mls/hr IVPB Q60M [facility] Stop: 11/14/17 11:59 Dextrose/Sodium Chloride (D5-1/2ns+40 Meq Kcl -) 40 meq in 1,000 mls @ 100 mls/ hr IV ASDIR [facility] Stop: 11/14/17 20:31 Last Admin: 11/14/17 09:18 Dose: 100 mls/hr Lactobacillus Acidophilus (Bacid -) 1 tab PO DAILY [facility] Last Admin: 11/14/17 09:14 Dose: 1 tab Metformin HCl (Glucophage -) 500 mg PO BIDAC [facility] Last Admin: 11/14/17 06:24 Dose: 500 mg Tamsulosin HCl (Flomax -) 0.4 mg PO DAILY@0830 [facility] Last Admin: 11/14/17 09:14 Dose: 0.4 mg - Objective Vital Signs: Vital Signs Temperature 98 F 11/14/17 06:29 Pulse Rate 79 11/14/17 06:29 Respiratory Rate 18 11/14/17 06:29 Blood Pressure 102/50 11/14/17 06:29 O2 Sat by Pulse Oximetry (%) 98 11/13/17 21:00 Constitutional: Yes: No Distress, Thin Cardiovascular: Yes: Regular Rate and Rhythm Respiratory: Yes: Regular, Cough, Rales, Rhonchi. No: SOB, Tachypnea, Wheezes Gastrointestinal: Yes: Normal Bowel Sounds, Soft. No: Distention, Tenderness Genitourinary: Yes: Padron Present Edema: No Integumentary: Yes: Pressure Ulcer Wound/Incision: Yes: Dressing Dry and Intact Neurological: Yes: Alert, Oriented, Aphasia Psychiatric: Yes: Alert, Oriented Labs: CBC, BMP 11/14/17 06:00 11/14/17 06:00 Problem List - Problems (1) Sepsis Code(s): A41.9 - SEPSIS, UNSPECIFIED ORGANISM Qualifiers: Sepsis type: sepsis due to unspecified organism Qualified Code(s): A41.9 - Sepsis, unspecified organism (2) UTI (urinary tract infection) Code(s): N39.0 - URINARY TRACT INFECTION, SITE NOT SPECIFIED Qualifiers: Urinary tract infection type: acute cystitis Hematuria presence: without hematuria Qualified Code(s): N30.00 - Acute cystitis without hematuria (3) Acute metabolic encephalopathy Code(s): G93.41 - METABOLIC ENCEPHALOPATHY (4) Hyponatremia Code(s): E87.1 - HYPO-OSMOLALITY AND HYPONATREMIA (5) Leukocytosis Code(s): D72.829 - ELEVATED WHITE BLOOD CELL COUNT, UNSPECIFIED (6) DM (diabetes mellitus) Code(s): E11.9 - TYPE 2 DIABETES MELLITUS WITHOUT COMPLICATIONS Qualifiers: Diabetes mellitus type: type 2 Diabetes mellitus supervisor long goods insulin use: without supervisor long goods use (7) Dehydration Code(s): E86.0 - DEHYDRATION (8) AMANDA (acute kidney injury) Code(s): N17.9 - ACUTE KIDNEY FAILURE, UNSPECIFIED (9) Hyperkalemia Code(s): E87.5 - HYPERKALEMIA (10) BPH (benign prostatic hyperplasia) Code(s): N40.0 - BENIGN PROSTATIC HYPERPLASIA WITHOUT LOWER URINRY TRACT SYMP (11) Hemiparesis Code(s): G81.90 - HEMIPLEGIA, UNSPECIFIED AFFECTING UNSPECIFIED SIDE Qualifiers: Cerebrovascular disease type: nontraumatic intracerebral hemorrhage (12) CAD (coronary artery disease) Code(s): I25.10 - ATHSCL HEART DISEASE OF [place] CORONARY ARTERY W/O ANG PCTRS Qualifiers: Coronary Disease-Associated Artery/Lesion type: bypass graft [place] vs. transplanted heart: [place] heart Associated angina: without angina Qualified Code(s): I25.810 - Atherosclerosis of coronary artery bypass graft(s) without angina pectoris (13) HTN (hypertension) Code(s): I10 - ESSENTIAL (PRIMARY) HYPERTENSION Qualifiers: Hypertension type: essential hypertension Qualified Code(s): I10 - Essential (primary) hypertension (14) Acute hypernatremia Code(s): E87.0 - HYPEROSMOLALITY AND HYPERNATREMIA (15) Pressure ulcer of sacral region, stage 2 Code(s): L89.152 - PRESSURE ULCER OF [place] REG[place], STAGE 2 (16) Poor fluid intake Code(s): R63.8 - OTHER SYMPTOMS AND SIGNS CONCERNING FOOD AND FLUID INTAKE (17) Candidal urinary tract infection Code(s): B37.49 - OTHER UROGENITAL CANDIDIASIS (18) Hypokalemia Code(s): E87.6 - HYPOKALEMIA (19) Hypomagnesemia Code(s): E83.42 - HYPOMAGNESEMIA (20) Hypophosphatemia Code(s): E83.39 - OTHER DISORDERS OF PHOSPHORUS METABOLISM (21) Diarrhea Code(s): R19.7 - DIARRHEA, UNSPECIFIED Qualifiers: Diarrhea type: unspecified type Qualified Code(s): R19.7 - Diarrhea, unspecified (22) Hypocalcemia Code(s): E83.51 - HYPOCALCEMIA Assessment/Plan (1) SIRS Assessment/Plan: febrile overnight, still hypotensive, wbcs wnl, rhonchi on assessment repeat chest xray ordered UA+, blood cultures neg / UC with mari received ceftriaxone 7/7 zosyn d/c'd Vantin day 1 IVF tele monitoring adequate glycemic control Code(s): A41.9 - SEPSIS, UNSPECIFIED ORGANISM Qualifiers: Sepsis type: sepsis due to unspecified organism Qualified Code(s): A41.9 - Sepsis, unspecified organism (2) Candidal urinary tract infection Assessment/Plan: UA positive UC with mari lactobacillus po diflucan dose 6 vantin day 1 ivf ID following Code(s): B37.49 - OTHER UROGENITAL CANDIDIASIS (3) Acute metabolic encephalopathy Assessment/Plan: resolved Code(s): G93.41 - METABOLIC ENCEPHALOPATHY (4) Acute hypernatremia Assessment/Plan: Not improved, pt may still be intravasc volume depleted D51/2 ns 100ml/hr monitor bmp Code(s): E87.0 - HYPEROSMOLALITY AND HYPERNATREMIA (5) Leukocytosis Assessment/Plan: resolved Code(s): D72.829 - ELEVATED WHITE BLOOD CELL COUNT, UNSPECIFIED (6) Pressure ulcer of sacral region, stage 2 Assessment/Plan: stage 2 pressure ulcer of gluteal cleft, present on admission continue reposition q2hrs apply barrier cream and foam dressing Code(s): L89.152 - PRESSURE ULCER OF [place], STAGE 2 (7) Poor fluid intake Assessment/Plan: poor po intake at home assisted with feed here speech eval reviewed dysphagia pureed diet, tolerating glucerna/magic cup/ prosource supplements to promote nutrition barium swallow done, no signs of aspiration Code(s): R63.8 - OTHER SYMPTOMS AND SIGNS CONCERNING FOOD AND FLUID INTAKE (8) DM (diabetes mellitus) Assessment/Plan: stable, HgA1c 7.3 continue metformin bgm Code(s): E11.9 - TYPE 2 DIABETES MELLITUS WITHOUT COMPLICATIONS Qualifiers: Diabetes mellitus type: type 2 Diabetes mellitus snf insulin use: without snf use (9) Dehydration Assessment/Plan: improving ,secondary to poor po intake ivf Code(s): E86.0 - DEHYDRATION (10) AMANDA (acute kidney injury) Assessment/Plan: Improved renal ultrasound with mild left renal hydronephrosis Abd CT with left hydronephrosis, air within renal pelvis and ureter IVF Urology consult appreciated Code(s): N17.9 - ACUTE KIDNEY FAILURE, UNSPECIFIED (11) HTN (hypertension) Assessment/Plan: controlled off of meds on metoprolol and amlodipine at home hold meds in the setting of hypotension Code(s): I10 - ESSENTIAL (PRIMARY) HYPERTENSION Qualifiers: Hypertension type: essential hypertension Qualified Code(s): I10 - Essential (primary) hypertension (12) BPH (benign prostatic hyperplasia) Assessment/Plan: padron in place for acute urinary retention cloudy purulent urine flomax and finasteride consult appreciated, no further intervention Code(s): N40.0 - BENIGN PROSTATIC HYPERPLASIA WITHOUT LOWER URINRY TRACT SYMP (13) Hemiparesis Assessment/Plan: right sided, chronic no acute changes, head ct neg PT as tolerated Code(s): G81.90 - HEMIPLEGIA, UNSPECIFIED AFFECTING UNSPECIFIED SIDE Qualifiers: Cerebrovascular disease type: nontraumatic intracerebral hemorrhage (14) CAD (coronary artery disease) Assessment/Plan: s/p CABG-2004 continue aspirin, atorvastatin Code(s): I25.10 - ATHSCL HEART DISEASE OF [place] CORONARY ARTERY W/O ANG PCTRS Qualifiers: Coronary Disease-Associated Artery/Lesion type: bypass graft [place] vs. transplanted heart: [place] heart Associated angina: without angina Qualified Code(s): I25.810 - Atherosclerosis of coronary artery bypass graft(s) without angina pectoris (15) Hypokalemia Assessment/Plan: K3.5 secondary to diarrhea/fluid loss, poor po intake iv kcl 10meq x2 add 40meqk to ivf monitor bmp Code(s): E87.6 - HYPOKALEMIA (16) Hypomagnesemia Assessment/Plan: Mg1.6 iv mg 2g ordered monitor bmp Code(s): E83.42 - HYPOMAGNESEMIA (17) Hypophosphatemia Assessment/Plan: improved Code(s): E83.39 - OTHER DISORDERS OF PHOSPHORUS METABOLISM (18) Diarrhea Assessment/Plan: large foul smelling liquid diarrhea yesterday r/o infectious etiology cdiff pending Code(s): R19.7 - DIARRHEA, UNSPECIFIED Qualifiers: Diarrhea type: unspecified type Qualified Code(s): R19.7 - Diarrhea, unspecified (19) Hypocalcemia Assessment/Plan: corrected calcium 8.4 will monitor Code(s): E83.51 - HYPOCALCEMIA Dispo: SNF when clinically stable
[2017-11-14] MEDS: POTASSIUM CHLORIDE 10 MEQ in SODIUM CHLORIDE 100 ML IVPB SCH ×2 (11:00→12:15)
[2017-11-14 11:12] VITALS: BMI 19.6
--- NOTE | 2017-11-14 11:12 | CON.NEP ---
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 He was found to have a hydronephrosis with AMANDA that has resolved with padron and fluids. He is unable to give any history. His sodium has risen and nephrology is called. he appears comfortable. 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, 2016) Cardio/Vascular: Yes: CAD, HTN, Hyperlipdemia Renal/: Yes: BPH Musculoskeletal: Yes: Hemiparesis (right) Endocrine: Yes: Diabetes Mellitus - Past Surgical History Past Surgical History: Yes: CABG (2004) - Alcohol/Substance Use Hx Alcohol Use: No History of Substance Use: reports: None - Smoking History Smoking history: Former smoker Have you smoked in the past 12 months: No - Social History ADL: Support Services History of Recent Travel: No Home Medications - Allergies Allergies/Adverse Reactions: Allergies Allergy/AdvReac Type Severity Reaction Status Date / Time No Known Allergies Allergy Verified 11/05/17 12:45 - Home Medications Home Medications: Ambulatory Orders Aspirin [ASA -] 81 mg PO DAILY 11/05/17 Finasteride [Proscar -] 5 mg PO DAILY 11/05/17 Levofloxacin [Levaquin] 500 mg PO DAILY 11/05/17 Metformin HCl 500 mg PO BID 11/05/17 Metoprolol Tartrate 25 mg PO BID 11/05/17 Simvastatin 40 mg PO HS 11/05/17 Tamsulosin HCl 0.4 mg PO DAILY 11/05/17 Review of Systems Unable to obtain ROS, reason: aphasic Nephrology Consult - Height Height: 5 ft 8 in - Weight Weight: 129 lb 4 oz - BMI Body Mass Index (BMI): 19.6 - Lab Results CBC,BMP: CBC, BMP 11/14/17 06:00 11/14/17 06:00 Anion Gap: Anion Gap Anion Gap 7 (8-16) L 11/14/17 06:00 - Imaging Chest X-ray: Image Reviewed (no infiltrate) - Physical Examination Vital Signs: Vital Signs Temperature 98 F 11/14/17 06:29 Pulse Rate 79 11/14/17 06:29 Respiratory Rate 18 11/14/17 06:29 Blood Pressure 102/50 11/14/17 06:29 O2 Sat by Pulse Oximetry (%) 98 11/13/17 21:00 Constitutional: Yes: No Distress, Calm, Thin Eyes: Yes: Conjunctiva Clear, EOM Intact HENT: Yes: Atraumatic, Normocephalic Neck: Yes: Supple, Trachea Midline Cardiovascular: Yes: Regular Rate and Rhythm Respiratory: Yes: Regular, Rhonchi Gastrointestinal: Yes: Normal Bowel Sounds Renal/: Yes: WNL Musculoskeletal: Yes: WNL Extremities: Yes: WNL Edema: No Wound/Incision: Yes: Other (sternotomy scar) Neurological: Yes: Alert, Aphasia, Other (right hemiplegia) Psychiatric: Yes: Alert, Oriented Assessment/Plan IMPRESSION 1. DM 2. UTI with mari 3, hypernatremia probably from decreased water intake in patient who has right hemiplegia and had amanda/?ATN 4. hypokalemia improved 5. malnutrition with significant hypoalbuminemia 6. corrected calcium is normal 7. mild hydro with normalized renal function of unclear significance 8. air in ureter PLAN agree with hydration would repeat CT scan to see if "air" persists- doubt pyelonephritis since he looks so "good" continue antibiotics per ID note read and appreciated follow sodiums, may need to change to d5w with K if not improved MV
[2017-11-14] MEDS: CLOTRIMAZOLE 1% CREAM 15 GM TUBE TP SCH ×2 (12:43→21:02)
[2017-11-14] MEDS: CEFPODOXIME PROXETIL 100 MG TABLET PO SCH ×2 (12:43→21:02)
[2017-11-14] MEDS: ACETAMINOPHEN 500 MG TABLET (FP) PO PRN (17:41)
[2017-11-14] MEDS: ATORVASTATIN CA 20 MG TABLET (FP) PO SCH (21:02)
[2017-11-15] MEDS: metFORMIN HCL 500 MG TABLET (FP) PO SCH ×2 (06:36→17:35)
[2017-11-15 07:58] LABS: BASO % 0.3 % (0-2.0); EOS % 1.5 % (0-4.5); HEMATOCRIT 31.8 % (35.4-49); HEMOGLOBIN 10.1 GM/dL (11.7-16.9); LYMPH % 29.8 % (8-40); MCH 25.3 pg (25.7-33.7); MCHC 31.7 g/dl (32.0-35.9); MEAN CELL VOLUME 79.8 fl (80-96); MONO % 6.1 % (3.8-10.2); NEUT % 62.3 % (42.8-82.8); PLATELET COUNT 170 K/MM3 (134-434); RBC 3.98 M/mm3 (4.00-5.60); RDW 16.8 % (11.9-15.9); WHITE BLOOD COUNT 8.5 K/mm3 (4.0-10.0)
[2017-11-15 08:10] LABS: ANION GAP 5 (8-16); BLOOD UREA NITROGEN 11 mg/dL (7-18); CHLORIDE 114 mmol/L (98-107); CO2 27 mmol/L (21-32); GLUCOSE,RANDOM 80 mg/dL (74-106); MAGNESIUM 1.5 mg/dL (1.8-2.4); SODIUM 146 mmol/L (136-145)
[2017-11-15 08:13] LABS: CREATININE 0.7 mg/dL (0.7-1.3); PHOSPHOROUS 1.6 mg/dL (2.5-4.9)
[2017-11-15] MEDS ORDERED: PT OWN MED DRAWER 7, Y5N ONE (10:31)
[2017-11-15] MEDS: CEFPODOXIME PROXETIL 100 MG TABLET PO SCH (10:33)
[2017-11-15] MEDS: ASPIRIN COATED 81 MG TABLET.EC PO SCH (10:33)
[2017-11-15] MEDS: LACTOBACILLUS ACIDOPHILUS 1 EACH TAB (FP) PO SCH (10:33)
[2017-11-15] MEDS: FINASTERIDE 5 MG TABLET (FP) PO SCH (10:33)
[2017-11-15] MEDS: TAMSULOSIN HCL 0.4 MG CAP.ER.24H (FP) PO SCH (10:33)
[2017-11-15] MEDS: FLUCONAZOLE 100 MG TABLET (UD) PO SCH (10:33)
[2017-11-15] MEDS: CLOTRIMAZOLE 1% CREAM 15 GM TUBE TP SCH (10:34)
--- NOTE | 2017-11-15 11:10 | PN ---
Progress Note, Physician Chief Complaint: ID Patient has been hospitalized since the Oct and treated with antibiotics right up until now Presently Vantin and diflucan but developed fever 102 !! He is congested some couph noted but otherwise in no distess Temp currently normal - Current Medication List Current Medications: Active Medications Acetaminophen (Tylenol -) 500 mg PO Q6H PRN PRN Reason: FEVER Last Admin: 11/14/17 17:41 Dose: 500 mg Amino Acids (Prosource No Carb Liquid Pkt) 30 ml PO BID@0800,1730 [facility] Last Admin: 11/14/17 17:41 Dose: Not Given Aspirin (Ecotrin -) 81 mg PO DAILY [facility] Last Admin: 11/15/17 10:33 Dose: 81 mg Atorvastatin Calcium (Lipitor -) 40 mg PO HS [facility] Last Admin: 11/14/17 21:02 Dose: 40 mg Cefpodoxime Proxetil (Vantin (Nf) -) 100 mg PO BID [facility] Last Admin: 11/15/17 10:33 Dose: 100 mg Clotrimazole (Lotrimin 1% Cream -) 1 applic TP BID [facility] Last Admin: 11/15/17 10:34 Dose: 1 applic Finasteride (Proscar -) 5 mg PO DAILY [facility] Last Admin: 11/15/17 10:33 Dose: 5 mg Fluconazole (Diflucan -) 100 mg PO DAILY [facility] Last Admin: 11/15/17 10:33 Dose: 100 mg Lactobacillus Acidophilus (Bacid -) 1 tab PO DAILY [facility] Last Admin: 11/15/17 10:33 Dose: 1 tab Metformin HCl (Glucophage -) 500 mg PO BIDAC [facility] Last Admin: 11/15/17 06:36 Dose: 500 mg Tamsulosin HCl (Flomax -) 0.4 mg PO DAILY@0830 [facility] Last Admin: 11/15/17 10:33 Dose: 0.4 mg - Objective Vital Signs: Vital Signs Temperature 99 F 11/15/17 05:00 Pulse Rate 79 11/15/17 05:00 Respiratory Rate 20 11/15/17 05:00 Blood Pressure 96/44 11/15/17 05:00 O2 Sat by Pulse Oximetry (%) 94 L 11/14/17 21:00 Constitutional: Yes: No Distress Cardiovascular: Yes: Regular Rate and Rhythm, S1, S2. No: Murmur Respiratory: Yes: WNL, Regular, CTA Bilaterally. No: Rhonchi Gastrointestinal: Yes: WNL, Normal Bowel Sounds, Soft. No: Tenderness, Tenderness, Epigastrium Labs: CBC, BMP 11/15/17 06:30 11/15/17 06:30 Problem List - Problems (1) AMANDA (acute kidney injury) Code(s): N17.9 - ACUTE KIDNEY FAILURE, UNSPECIFIED (2) Acute metabolic encephalopathy Code(s): G93.41 - METABOLIC ENCEPHALOPATHY (3) DM (diabetes mellitus) Code(s): E11.9 - TYPE 2 DIABETES MELLITUS WITHOUT COMPLICATIONS Qualifiers: Diabetes mellitus type: type 2 Diabetes mellitus [place] agent insulin use: without [facility] use (4) UTI (urinary tract infection) Code(s): N39.0 - URINARY TRACT INFECTION, SITE NOT SPECIFIED Qualifiers: Urinary tract infection type: acute cystitis Hematuria presence: without hematuria Qualified Code(s): N30.00 - Acute cystitis without hematuria Assessment/Plan Microbiology 11/10/17 19:00 Urine - Urine - Catheterized Urine Culture - Final Yeast Like Organism 11/05/17 14:25 Urine - Urine Clean Catch Urine Culture - Final Yeast Like Organism Laboratory Tests 11/10/17 11/13/17 11/15/17 19:00 07:00 06:30 WBC 8.5 RBC 3.98 L Hgb 10.1 L Plt Count 170 AST 20 D ALT 19 D Alkaline Phosphatase 71 Ur Leukocyte Esterase 3+ H Urine WBC (Auto) 1661 Urine RBC (Auto) 22 Assesment Fever unclear etiology Has gotten long treatment with antibiotic and antifungal Finding of gas in the collecting system is noted and discussed with urology Clinically he does not look acutely ill to have a gas forming infection. Alejandro could be colonization but he is on Diflucan Possibility of resistant Alejandro considered Plan At this point best to stop everything and watch Reculture if febrile in 24-48 hours Obtain CRP ESR Urology will followup in 24 hours Yazan ZAFAR
[2017-11-15] MEDS ORDERED: MAGNESIUM 1GM/D5W - 1 GM/100 ML IVPB IVPB ONE ×3 (11:20→15:30)
[2017-11-15] MEDS: AMINO ACIDS/PROTEIN HYDROLYS 30 ML LIQUID.PKT PO SCH ×2 (11:26→17:37)
[2017-11-15] MEDS ORDERED: MAGNESIUM OXIDE 400 MG TABLET (FP) PO ONE (11:30)
--- NOTE | 2017-11-15 11:36 | PN ---
Progress Note, Physician Chief Complaint: pt lying in bed in no acute distress. alert and oriented. denies chest pain, sob , n/v/d. - Current Medication List Current Medications: Active Medications Acetaminophen (Tylenol -) 500 mg PO Q6H PRN PRN Reason: FEVER Last Admin: 11/14/17 17:41 Dose: 500 mg Amino Acids (Prosource No Carb Liquid Pkt) 30 ml PO BID@0800,1730 REPLACED BY [facility] Last Admin: 11/15/17 11:26 Dose: Not Given Aspirin (Ecotrin -) 81 mg PO DAILY REPLACED BY [facility] Last Admin: 11/15/17 10:33 Dose: 81 mg Atorvastatin Calcium (Lipitor -) 40 mg PO HS REPLACED BY [facility] Last Admin: 11/14/17 21:02 Dose: 40 mg Finasteride (Proscar -) 5 mg PO DAILY REPLACED BY [facility] Last Admin: 11/15/17 10:33 Dose: 5 mg Magnesium Sulfate/Dextrose (Magnesium 1gm/D5w -) 1 gm in 100 mls @ 100 mls/hr IVPB ONCE ONE Stop: 11/15/17 12:19 Magnesium Sulfate/Dextrose (Magnesium 1gm/D5w -) 1 gm in 100 mls @ 100 mls/hr IVPB ONCE ONE Stop: 11/15/17 13:29 Lactobacillus Acidophilus (Bacid -) 1 tab PO DAILY REPLACED BY [facility] Last Admin: 11/15/17 10:33 Dose: 1 tab Metformin HCl (Glucophage -) 500 mg PO BIDAC REPLACED BY [facility] Last Admin: 11/15/17 06:36 Dose: 500 mg Potassium Phos/Sodium Phos (Phos-Nak Packet -) 1 packet PO TID REPLACED BY [facility] Tamsulosin HCl (Flomax -) 0.4 mg PO DAILY@0830 REPLACED BY [facility] Last Admin: 11/15/17 10:33 Dose: 0.4 mg - Objective Vital Signs: Vital Signs Temperature 99 F 11/15/17 05:00 Pulse Rate 79 11/15/17 05:00 Respiratory Rate 20 11/15/17 05:00 Blood Pressure 96/44 11/15/17 05:00 O2 Sat by Pulse Oximetry (%) 94 L 11/14/17 21:00 Constitutional: Yes: No Distress, Thin Cardiovascular: Yes: Regular Rate and Rhythm. No: Gallop, Murmur, Rub Respiratory: Yes: Regular, Cough, Rales (bibasilar). No: Tachypnea, Wheezes Gastrointestinal: Yes: WNL, Normal Bowel Sounds, Soft. No: Distention, Tenderness Genitourinary: Yes: Padron Present Edema: No Neurological: Yes: WNL, Alert, Oriented, Aphasia Psychiatric: Yes: WNL, Alert, Oriented Labs: CBC, BMP 11/15/17 06:30 11/15/17 06:30 <FlorencioHebera - Last Filed: 11/15/17 12:37> - Current Medication List Current Medications: Active Medications Acetaminophen (Tylenol -) 500 mg PO Q6H PRN PRN Reason: FEVER Last Admin: 11/14/17 17:41 Dose: 500 mg Amino Acids (Prosource No Carb Liquid Pkt) 30 ml PO BID@0800,1730 REPLACED BY [facility] Last Admin: 11/15/17 17:37 Dose: Not Given Aspirin (Ecotrin -) 81 mg PO DAILY REPLACED BY [facility] Last Admin: 11/15/17 10:33 Dose: 81 mg Atorvastatin Calcium (Lipitor -) 40 mg PO HS REPLACED BY [facility] Last Admin: 11/15/17 22:46 Dose: Not Given Finasteride (Proscar -) 5 mg PO DAILY REPLACED BY [facility] Last Admin: 11/15/17 10:33 Dose: 5 mg Dextrose (D5w -) 1,000 mls @ 42 mls/hr IV ASDIR REPLACED BY [facility] Last Admin: 11/15/17 15:49 Dose: 42 mls/hr Lactobacillus Acidophilus (Bacid -) 1 tab PO DAILY REPLACED BY [facility] Last Admin: 11/15/17 10:33 Dose: 1 tab Metformin HCl (Glucophage -) 500 mg PO BIDAC REPLACED BY [facility] Last Admin: 11/16/17 06:47 Dose: 500 mg Potassium Phos/Sodium Phos (Phos-Nak Packet -) 1 packet PO TID REPLACED BY [facility] Last Admin: 11/16/17 06:48 Dose: 1 packet Tamsulosin HCl (Flomax -) 0.4 mg PO DAILY@0830 REPLACED BY [facility] Last Admin: 11/15/17 10:33 Dose: 0.4 mg - Objective Vital Signs: Vital Signs Temperature 98.6 F 11/16/17 05:35 Pulse Rate 71 11/16/17 05:35 Respiratory Rate 20 11/16/17 05:35 Blood Pressure 102/49 11/16/17 05:35 O2 Sat by Pulse Oximetry (%) 94 L 11/15/17 21:00 <Elio Cast - Last Filed: 11/16/17 08:03> Problem List - Problems (1) Sepsis Code(s): A41.9 - SEPSIS, UNSPECIFIED ORGANISM QualifierTitle: Sepsis type: sepsis due to unspecified organism Qualified Code(s): A41.9 - Sepsis, unspecified organism (2) UTI (urinary tract infection) Code(s): N39.0 - URINARY TRACT INFECTION, SITE NOT SPECIFIED QualifierTitle: Urinary tract infection type: acute cystitis Hematuria presence: without hematuria Qualified Code(s): N30.00 - Acute cystitis without hematuria (3) Acute metabolic encephalopathy Code(s): G93.41 - METABOLIC ENCEPHALOPATHY (4) Hyponatremia Code(s): E87.1 - HYPO-OSMOLALITY AND HYPONATREMIA (5) Leukocytosis Code(s): D72.829 - ELEVATED WHITE BLOOD CELL COUNT, UNSPECIFIED (6) DM (diabetes mellitus) Code(s): E11.9 - TYPE 2 DIABETES MELLITUS WITHOUT COMPLICATIONS QualifierTitle: Diabetes mellitus type: type 2 Diabetes mellitus strategic manager insulin use: without strategic manager use (7) Dehydration Code(s): E86.0 - DEHYDRATION (8) AMANDA (acute kidney injury) Code(s): N17.9 - ACUTE KIDNEY FAILURE, UNSPECIFIED (9) Hyperkalemia Code(s): E87.5 - HYPERKALEMIA (10) BPH (benign prostatic hyperplasia) Code(s): N40.0 - BENIGN PROSTATIC HYPERPLASIA WITHOUT LOWER URINRY TRACT SYMP (11) Hemiparesis Code(s): G81.90 - HEMIPLEGIA, UNSPECIFIED AFFECTING UNSPECIFIED SIDE QualifierTitle: Cerebrovascular disease type: nontraumatic intracerebral hemorrhage (12) CAD (coronary artery disease) Code(s): I25.10 - ATHSCL HEART DISEASE OF [place] CORONARY ARTERY W/O ANG PCTRS QualifierTitle: Coronary Disease-Associated Artery/Lesion type: bypass graft [place] vs. transplanted heart: [place] heart Associated angina: without angina Qualified Code(s): I25.810 - Atherosclerosis of coronary artery bypass graft(s) without angina pectoris (13) HTN (hypertension) Code(s): I10 - ESSENTIAL (PRIMARY) HYPERTENSION QualifierTitle: Hypertension type: essential hypertension Qualified Code( s): I10 - Essential (primary) hypertension (14) Acute hypernatremia Code(s): E87.0 - HYPEROSMOLALITY AND HYPERNATREMIA (15) Pressure ulcer of sacral region, stage 2 Code(s): L89.152 - PRESSURE ULCER OF SACRAL REGION, STAGE 2 (16) Poor fluid intake Code(s): R63.8 - OTHER SYMPTOMS AND SIGNS CONCERNING FOOD AND FLUID INTAKE (17) Candidal urinary tract infection Code(s): B37.49 - OTHER UROGENITAL CANDIDIASIS (18) Hypokalemia Code(s): E87.6 - HYPOKALEMIA (19) Hypomagnesemia Code(s): E83.42 - HYPOMAGNESEMIA (20) Hypophosphatemia Code(s): E83.39 - OTHER DISORDERS OF PHOSPHORUS METABOLISM (21) Diarrhea Code(s): R19.7 - DIARRHEA, UNSPECIFIED QualifierTitle: Diarrhea type: unspecified type Qualified Code(s): R19.7 - Diarrhea, unspecified (22) Hypocalcemia Code(s): E83.51 - HYPOCALCEMIA (23) Hydronephrosis Code(s): N13.30 - UNSPECIFIED HYDRONEPHROSIS <Ashlie Matias - Last Filed: 11/15/17 12:37> Assessment/Plan (1) SIRS Assessment/Plan: febrile overnight, hypotensive, wbcs wnl repeat chest xray without acute findings UA+, blood cultures neg / UC with mari CRP elevated received ceftriaxone 03/26, zosyn monitor off of antibiotics per ID IVF tele monitoring adequate glycemic control Code(s): A41.9 - SEPSIS, UNSPECIFIED ORGANISM Qualifiers: Sepsis type: sepsis due to unspecified organism Qualified Code(s): A41.9 - Sepsis, unspecified organism (2) Candidal urinary tract infection Assessment/Plan: UA positive UC with mari monitor off of antibiotics per ID ivf ID following Code(s): B37.49 - OTHER UROGENITAL CANDIDIASIS (3) Acute metabolic encephalopathy Assessment/Plan: resolved Code(s): G93.41 - METABOLIC ENCEPHALOPATHY (4) Acute hypernatremia Assessment/Plan: improved D51/2 ns 100ml/hr monitor bmp Code(s): E87.0 - HYPEROSMOLALITY AND HYPERNATREMIA (5) Leukocytosis Assessment/Plan: resolved Code(s): D72.829 - ELEVATED WHITE BLOOD CELL COUNT, UNSPECIFIED (6) Pressure ulcer of sacral region, stage 2 Assessment/Plan: stage 2 pressure ulcer of gluteal cleft, present on admission continue reposition q2hrs apply barrier cream and foam dressing Code(s): L89.152 - PRESSURE ULCER OF SACRAL REGION, STAGE 2 (7) Poor fluid intake Assessment/Plan: poor po intake at home assisted with feed here speech eval reviewed dysphagia pureed diet, tolerating glucerna/magic cup/ prosource supplements to promote nutrition barium swallow done, no signs of aspiration Code(s): R63.8 - OTHER SYMPTOMS AND SIGNS CONCERNING FOOD AND FLUID INTAKE (8) DM (diabetes mellitus) Assessment/Plan: stable, HgA1c 7.3 continue metformin bgm Code(s): E11.9 - TYPE 2 DIABETES MELLITUS WITHOUT COMPLICATIONS Qualifiers: Diabetes mellitus type: type 2 Diabetes mellitus strategic manager insulin use: without detention use (9) Dehydration Assessment/Plan: improving ,secondary to poor po intake ivf Code(s): E86.0 - DEHYDRATION (10) Hydronephrosis Assessment/Plan: renal ultrasound with mild left renal hydronephrosis Abd CT with left hydronephrosis, air within renal pelvis and ureter Urology consult appreciated, no further intervention Code(s): N13.30 - UNSPECIFIED HYDRONEPHROSIS (11) HTN (hypertension) Assessment/Plan: controlled off of meds on metoprolol and amlodipine at home hold meds in the setting of hypotension Code(s): I10 - ESSENTIAL (PRIMARY) HYPERTENSION Qualifiers: Hypertension type: essential hypertension Qualified Code(s): I10 - Essential (primary) hypertension (12) BPH (benign prostatic hyperplasia) Assessment/Plan: padron in place for acute urinary retention flomax and finasteride consult appreciated, no further intervention Code(s): N40.0 - BENIGN PROSTATIC HYPERPLASIA WITHOUT LOWER URINRY TRACT SYMP (13) Hemiparesis Assessment/Plan: right sided, chronic no acute changes, head ct neg PT as tolerated Code(s): G81.90 - HEMIPLEGIA, UNSPECIFIED AFFECTING UNSPECIFIED SIDE Qualifiers: Cerebrovascular disease type: nontraumatic intracerebral hemorrhage (14) CAD (coronary artery disease) Assessment/Plan: s/p CABG-2004 continue aspirin, atorvastatin Code(s): I25.10 - ATHSCL HEART DISEASE OF [place] CORONARY ARTERY W/O ANG PCTRS Qualifiers: Coronary Disease-Associated Artery/Lesion type: bypass graft [place] vs. transplanted heart: [place] heart Associated angina: without angina Qualified Code(s): I25.810 - Atherosclerosis of coronary artery bypass graft(s) without angina pectoris (15) Hypokalemia Assessment/Plan: resolved Code(s): E87.6 - HYPOKALEMIA (16) Hypomagnesemia Assessment/Plan: Mg1.5 iv mg 2g ordered magox 400mg ordered monitor bmp Code(s): E83.42 - HYPOMAGNESEMIA (17) Hypophosphatemia Assessment/Plan: neutraphos tid ordered will monitor Code(s): E83.39 - OTHER DISORDERS OF PHOSPHORUS METABOLISM (18) Diarrhea Assessment/Plan: improved cdiff neg Code(s): R19.7 - DIARRHEA, UNSPECIFIED Qualifiers: Diarrhea type: unspecified type Qualified Code(s): R19.7 - Diarrhea, unspecified (19) Hypocalcemia Assessment/Plan: improved will monitor Code(s): E83.51 - HYPOCALCEMIA Dispo: SNF when clinically stable <Ashlie Matias - Last Filed: 11/15/17 12:37>
[2017-11-15] MEDS: NAPH,MB-DB/K PH,MBDB POWDER PACKET PO SCH ×2 (13:55→22:46)
--- NOTE | 2017-11-15 14:51 | PN ---
Progress Note, Physician History of Present Illness: Pt seen and examined at bedside. He is awake and appears comfortable. He has poor PO intake. He denies shortness of breath. - Current Medication List Current Medications: Active Medications Acetaminophen (Tylenol -) 500 mg PO Q6H PRN PRN Reason: FEVER Last Admin: 11/14/17 17:41 Dose: 500 mg Amino Acids (Prosource No Carb Liquid Pkt) 30 ml PO BID@0800,1730 [facility] Last Admin: 11/15/17 11:26 Dose: Not Given Aspirin (Ecotrin -) 81 mg PO DAILY [facility] Last Admin: 11/15/17 10:33 Dose: 81 mg Atorvastatin Calcium (Lipitor -) 40 mg PO HS [facility] Last Admin: 11/14/17 21:02 Dose: 40 mg Finasteride (Proscar -) 5 mg PO DAILY [facility] Last Admin: 11/15/17 10:33 Dose: 5 mg Lactobacillus Acidophilus (Bacid -) 1 tab PO DAILY [facility] Last Admin: 11/15/17 10:33 Dose: 1 tab Metformin HCl (Glucophage -) 500 mg PO BIDAC [facility] Last Admin: 11/15/17 06:36 Dose: 500 mg Potassium Phos/Sodium Phos (Phos-Nak Packet -) 1 packet PO TID [facility] Last Admin: 11/15/17 13:55 Dose: 1 packet Tamsulosin HCl (Flomax -) 0.4 mg PO DAILY@0830 [facility] Last Admin: 11/15/17 10:33 Dose: 0.4 mg - Objective Vital Signs: Vital Signs Temperature 98.0 F 11/15/17 13:16 Pulse Rate 76 11/15/17 13:16 Respiratory Rate 18 11/15/17 13:16 Blood Pressure 104/45 11/15/17 13:16 O2 Sat by Pulse Oximetry (%) 94 L 11/15/17 09:00 Constitutional: Yes: Calm Eyes: Yes: Conjunctiva Clear HENT: Yes: Atraumatic Cardiovascular: Yes: S1, S2 Respiratory: Yes: CTA Bilaterally Gastrointestinal: Yes: Soft Genitourinary: Yes: [place] Present Musculoskeletal: Yes: WNL Edema: No Integumentary: Yes: WNL Neurological: Yes: Pre-Existing Deficit Labs: CBC, BMP 11/15/17 06:30 11/15/17 06:30 - ....Imaging Ultrasound: Report Reviewed Problem List - Problems (1) AMANDA (acute kidney injury) Code(s): N17.9 - ACUTE KIDNEY FAILURE, UNSPECIFIED (2) DM (diabetes mellitus) Code(s): E11.9 - TYPE 2 DIABETES MELLITUS WITHOUT COMPLICATIONS Qualifiers: Diabetes mellitus type: type 2 Diabetes mellitus watermelon harvesting supervisor insulin use: without watermelon harvesting supervisor use (3) Hydronephrosis Code(s): N13.30 - UNSPECIFIED HYDRONEPHROSIS (4) UTI (urinary tract infection) Code(s): N39.0 - URINARY TRACT INFECTION, SITE NOT SPECIFIED Qualifiers: Urinary tract infection type: acute cystitis Hematuria presence: without hematuria Qualified Code(s): N30.00 - Acute cystitis without hematuria Assessment/Plan Current Medications Generic Name Dose Route Start Last Admin Trade Name Freq PRN Reason Stop Dose Admin Acetaminophen 500 mg 11/06/17 16:57 11/14/17 17:41 Tylenol - PO 500 mg Q6H PRN Administration FEVER Amino Acids 30 ml 11/11/17 17:30 11/15/17 11:26 Prosource No Carb Liquid Pkt PO Not Given BID@0800,1730 EJ Aspirin 81 mg 11/09/17 11:30 11/15/17 10:33 Ecotrin - PO 81 mg DAILY EJ Administration Atorvastatin Calcium 40 mg 11/07/17 22:00 11/14/17 21:02 Lipitor - PO 40 mg HS EJ Administration Finasteride 5 mg 11/09/17 11:30 11/15/17 10:33 Proscar - PO 5 mg DAILY EJ Administration Lactobacillus Acidophilus 1 tab 11/09/17 12:15 11/15/17 10:33 Bacid - PO 1 tab DAILY EJ Administration Metformin HCl 500 mg 11/12/17 22:00 11/15/17 06:36 Glucophage - PO 500 mg BIDAC EJ Administration Potassium Phos/Sodium Phos 1 packet 11/15/17 14:00 11/15/17 13:55 Phos-Nak Packet - PO 1 packet TID EJ Administration Tamsulosin HCl 0.4 mg 11/09/17 11:30 11/15/17 10:33 Flomax - PO 0.4 mg DAILY@0830 EJ Administration Laboratory Tests 11/14/17 11/15/17 06:00 06:30 Sodium 150 H 146 H IMPRESSION 1. DM 2. UTI 3, hypernatremia 4. hypokalemia improved 5. malnutrition 6. hydronephrosis Plan - will start on d5w - repeat labs in am - replace lytes - urology eval for hydro, can be done as outpt - will follow Dr Abraham
[2017-11-15] MEDS ORDERED: DEXTROSE 5%-WATER - 1,000 ML IV SCH (15:00)
[2017-11-15] MEDS: ATORVASTATIN CA 20 MG TABLET (FP) PO SCH (22:46)
[2017-11-16] MEDS: metFORMIN HCL 500 MG TABLET (FP) PO SCH (06:47)
[2017-11-16] MEDS: NAPH,MB-DB/K PH,MBDB POWDER PACKET PO SCH (06:48)
[2017-11-16 07:30] LABS: BASO % 0.3 % (0-2.0); EOS % 2.1 % (0-4.5); HEMATOCRIT 30.9 % (35.4-49); HEMOGLOBIN 9.9 GM/dL (11.7-16.9); LYMPH % 36.4 % (8-40); MCH 25.4 pg (25.7-33.7); MCHC 31.9 g/dl (32.0-35.9); MEAN CELL VOLUME 79.7 fl (80-96); MEAN PLT VOLUME 8.9 fl (7.5-11.1); MONO % 5.9 % (3.8-10.2); NEUT % 55.3 % (42.8-82.8); PLATELET COUNT 169 K/MM3 (134-434); RBC 3.87 M/mm3 (4.00-5.60); WHITE BLOOD COUNT 7.8 K/mm3 (4.0-10.0)
[2017-11-16 08:01] LABS: ANION GAP 5 (8-16); BLOOD UREA NITROGEN 10 mg/dL (7-18); CALCIUM 7.1 mg/dL (8.5-10.1); CHLORIDE 109 mmol/L (98-107); CO2 28 mmol/L (21-32); CREATININE 0.7 mg/dL (0.7-1.3); GLUCOSE,RANDOM 85 mg/dL (74-106); MAGNESIUM 1.7 mg/dL (1.8-2.4); PHOSPHOROUS 2.3 mg/dL (2.5-4.9); POTASSIUM 3.8 mmol/L (3.5-5.1); SODIUM 142 mmol/L (136-145)
[2017-11-16] MEDS ORDERED: MAGNESIUM 2GM/50ML STERILE WATER IVPB IVPB ONE (09:45)
[2017-11-16] MEDS: AMINO ACIDS/PROTEIN HYDROLYS 30 ML LIQUID.PKT PO SCH (10:23)
[2017-11-16] MEDS: FINASTERIDE 5 MG TABLET (FP) PO SCH (10:23)
[2017-11-16] MEDS: LACTOBACILLUS ACIDOPHILUS 1 EACH TAB (FP) PO SCH (10:23)
[2017-11-16] MEDS: ASPIRIN COATED 81 MG TABLET.EC PO SCH (10:23)
[2017-11-16] MEDS: TAMSULOSIN HCL 0.4 MG CAP.ER.24H (FP) PO SCH (10:23)
[2017-11-16] MEDS ORDERED: POTASSIUM CHLORIDE TABS 20 MEQ TABLET.ER (FP) PO ONE (11:00)
[2017-11-16] MEDS ORDERED: MAGNESIUM OXIDE 400 MG TABLET (FP) PO ONE (12:15)
--- NOTE | 2017-11-16 12:18 | DS ---
Physical Examination Vital Signs: Vital Signs Temperature 98.6 F 11/16/17 05:35 Pulse Rate 71 11/16/17 05:35 Respiratory Rate 20 11/16/17 05:35 Blood Pressure 102/49 11/16/17 05:35 O2 Sat by Pulse Oximetry (%) 94 L 11/15/17 21:00 Constitutional: Yes: No Distress, Thin Cardiovascular: Yes: Regular Rate and Rhythm. No: Murmur, Rub, S1 Respiratory: Yes: Regular, Cough, Diminished, Rales. No: Rhonchi, SOB, Tachypnea, Wheezes Gastrointestinal: Yes: WNL, Normal Bowel Sounds, Soft. No: Distention, Tenderness Renal/: Yes: Padron Present Edema: No Integumentary: Yes: Pressure Ulcer (stage 2 sacrum) Wound/Incision: Yes: Clean/Dry, Dressing Dry and Intact Neurological: Yes: WNL, Alert, Aphasia Psychiatric: Yes: Alert Labs: CBC, BMP 11/16/17 06:00 11/16/17 06:00 <Ashlie Matias - Last Filed: 11/16/17 12:32> Vital Signs: Vital Signs Temperature 97.8 F 11/16/17 14:52 Pulse Rate 68 11/16/17 14:52 Respiratory Rate 20 11/16/17 14:52 Blood Pressure 106/50 11/16/17 14:52 O2 Sat by Pulse Oximetry (%) 94 L 11/16/17 09:00 Labs: CBC, BMP 11/16/17 06:00 11/16/17 06:00 <Elio Cast - Last Filed: 11/17/17 08:14> Discharge Summary Reason For Visit: UTI Current Active Problems UTI (urinary tract infection) (Acute) DM (diabetes mellitus) (Chronic) CAD (coronary artery disease) (Chronic) Hemiparesis (Chronic) BPH (benign prostatic hyperplasia) (Acute) Scrotal rash (Chronic) Pressure ulcer of sacral region, stage 2 (Chronic) Poor fluid intake (Chronic) Candidal urinary tract infection (Acute) Hydronephrosis (Acute) Hospital Course: is a pleasant 87 year old male with pmh of HTN, DM 2, hyperlipidemia , CAD, 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 Pt was found to have UTI-mari, AMANDA, SIRS, hypernatremia and dehydration. Chest xray , blood cultures neg. UA+, UC with yeast growth. Pt has been treated with diflucan, zosyn. ID was consulted for persistent fevers, colonization suspected , pt was taken off of antibiotics to monitor. Pt has been doing well today, afebrile overnight, ID cleared pt for d/c. AMANDA and hypernatremia has been resolved with adequate hydration. BP has been well controlled here, trends on the low side, therefore Metoprolol d/c;d to prevent hypotension. Pt has been evaluated by speech and was started on dysphagia chopped diet which he has been tolerating. Barium swallow was done which didnt show any signs of aspiration. However, pt's nutrition is poor as he does not want to eat and requires full assistance in feeding. Pt needs continued encouragement in nutrition. Pt has had acute urinary retention and padron was placed due to failure with trial of void twice. CT of abd revealed mild left sided hydronephrosis and air in renal pelvis. Renal ultrasound revealed the same without obstruction. Urology was consulted and no further interventions were done. Pt may follow up with Urology oupt for further management of BPH, urinary retention. Pt is medically cleared for discharge and highly advise to follow up with Urology and PCP in 1-2 weeks. - Home Medications Comprehensive Discharge Medication List: Ambulatory Orders Aspirin [ASA -] 81 mg PO DAILY 11/05/17 Finasteride [Proscar -] 5 mg PO DAILY 11/05/17 Metformin HCl 500 mg PO BID 11/05/17 Simvastatin 40 mg PO HS 11/05/17 Tamsulosin HCl 0.4 mg PO DAILY 11/05/17 Amino Acids/Protein Hydrolys [Prosource No Carb Liquid Pkt] 30 ml PO BID@0800, 1730 packet 11/16/17 <Ashlie Matias - Last Filed: 11/16/17 12:32> - Home Medications Comprehensive Discharge Medication List: Ambulatory Orders Aspirin [ASA -] 81 mg PO DAILY 11/05/17 Finasteride [Proscar -] 5 mg PO DAILY 11/05/17 Metformin HCl 500 mg PO BID 11/05/17 Simvastatin 40 mg PO HS 11/05/17 Tamsulosin HCl 0.4 mg PO DAILY 11/05/17 Amino Acids/Protein Hydrolys [Prosource No Carb Liquid Pkt] 30 ml PO BID@0800, 1730 packet 11/16/17 <Elio Cast - Last Filed: 11/17/17 08:14> Condition: Fair - Instructions Diet, Activity, Other Instructions: Resume activity as tolerated Dysphagia/aspiration precautions dysphagia chopped/ground diet thin liquids 1:1feed, glucerna, crush all meds promote nutrition BP medication Metoprol d/c;d as your BP has been well controlled here Padron in place for acute urinary rentention with failure with trial of void x 2 , please follow up outpt with urology in 1-2 weeks Please follow up with PCP in 7 days Referrals: Elio Cast MD [Primary Care Provider] - 1 Week Cameron Boswell MD., [Staff Physician] - 2 Weeks (urology ) Disposition: [facility]
[2017-11-16 14:56] VITALS: BP 106/50; PULSE 68; TEMP 97.8
== END 2017-11-16 16:20 | DRG 871 ==
LOC: JER 12:40 → JERBED 15:07 → J7W 22:13
PROVIDERS: ADMIT Internal Medicine; ATTEND Internal Medicine
DX: A41.9 Sepsis, unspecified organism (principal); G93.41 Metabolic encephalopathy; I69.351 Hemiplegia and hemiparesis following cerebral infarction affecting right dominant side; Z68.1 Body mass index [BMI] 19.9 or less, adult; N17.9 Acute kidney failure, unspecified; N39.0 Urinary tract infection, site not specified; E87.1 Hypo-osmolality and hyponatremia; B37.49 Other urogenital candidiasis; E87.0 Hyperosmolality and hypernatremia; N13.30 Unspecified hydronephrosis; E46 Unspecified protein-calorie malnutrition; E11.9 Type 2 diabetes mellitus without complications; E78.00 Pure hypercholesterolemia, unspecified; I10 Essential (primary) hypertension; R63.0 Anorexia; I25.10 Atherosclerotic heart disease of native coronary artery without angina pectoris; N40.0 Benign prostatic hyperplasia without lower urinary tract symptoms; R00.0 Tachycardia, unspecified; R63.8 Other symptoms and signs concerning food and fluid intake; D72.828 Other elevated white blood cell count; I95.89 Other hypotension; R21 Rash and other nonspecific skin eruption; E86.0 Dehydration; E87.5 Hyperkalemia; L89.152 Pressure ulcer of sacral region, stage 2; E87.6 Hypokalemia; E83.42 Hypomagnesemia; E83.51 Hypocalcemia; E83.39 Other disorders of phosphorus metabolism; I69.320 Aphasia following cerebral infarction; R19.7 Diarrhea, unspecified; Z66 Do not resuscitate; Z87.891 Personal history of nicotine dependence; Z95.1 Presence of aortocoronary bypass graft
CPT/HCPCS: 36415; 70450-TC; 71045-TC-FY; 74176; 74230-TC-FY; 76775-TC; 80048; 80053; 80061; 80076; 81003; 81015; 82272; 82310; 82550; 82570; 82962; 83036; 83605; 83690; 83721; 83735; 83970; 84100; 84300; 84484; 85025; 85651; 86140; 87040; 87086; 87324; 87449; 90670; 92611-GN; 93005; 93010; 94010; 97116-GP; 97161-GP; 99285-25; J1644

== ENCOUNTER 2018-01-23 16:07 | Inpatient (IN) | payer OTHER, MEDICARE ==
[2018-01-23] MEDS ORDERED: ACETAMINOPHEN INJECTION 100 ML IVPB ONE (16:15)
[2018-01-23] MEDS ORDERED: PIPERACILLIN/TAZOB 3.375 GM 3.375 GM/50 ML BAG IVPB ONE (16:22)
[2018-01-23] MEDS ORDERED: VANCOMYCIN 1 GRAM (PRE-DOCKED) 1,000 MG/250 ML BAG IVPB ONE (16:22)
--- NOTE | 2018-01-23 16:40 | PDOC ---
Attending Attestation - Critical Care Time Total Critical Care Time: 45 Critical Care Statement: The care of this patient involved high complexity decision making to prevent further life threatening deterioration of the patient 's condition and/or to evaluate & treat vital organ system(s) failure or risk of failure. - Medical Decision Making 01/23/18 18:18 Pt presents to the ED after brought in by family for altered mental status. Patient has had decreased PO intake for several days and today was found unsresponsive by the aide, who called 911. Pt was sommulent on Ed arrival, minimally responsive to sternal rub, with dry mucccous membranes and fever to 105. also hypoxic to 90% on NRB. Concern for severe sepsis. I discussed the poor prognosis extensively with the family, and the son and daughter who are health care proxies and present at the bedside do not wish for invasive measures to be taken. Patient is DNR/DNI. Labs show evidence of severe dehydration. There has been some improvement in his mental status with IV hydration. Will admit to ICU for continued monitoring, broad spectrum antibiotics and continued treatment for severe sepsis. <Kindra Rodriguez - Last Filed: 01/23/18 18:27> - Resident Resident Name: Clara Ingram - HPI HPI: 01/23/18 17:19 The patient is an 87 year old male with past medical history of hypertension, hyperlipidemia, diabetes, CVA (right sided residual weakness), CAD, and triple bypass surgery who arrives to the ED via EMS from home in septic shock. Over the past week the son reports decrease in mental status, PO intake, and he not been speaking. The patient was notably lethargic and unresponsive this morning as per aide. EMS notes the patient was tachycardic, hypotensive, and hypoxic with delayed capillary refill on arrival. His hypotension was improved with 400 cc IV bolus and hypoxia improved with nasal cannula. As per son, the patient was admitted back in October for disorientation and decreased appetite where he was noted to have a mari UTI, since then his UTI has been persistent with multiple drug resistances. PCP: Dr. Elio Cast - Physicial Exam PE: 01/23/18 18:28 GENERAL: Somnolent, arousable to sternal rub, withdrawing to pain, cachectic, febrile, warm to touch HEAD: No signs of trauma EYES: PERRLA, EOMI, sclera anicteric, conjunctiva clear ENT: Auricles normal inspection, hearing grossly normal, nares patent, oropharynx clear without exudates. Dry mucosa NECK: Normal ROM, supple, no lymphadenopathy, JVD, or masses LUNGS: Breath sounds equal, clear to auscultation bilaterally. No wheezes, and no crackles HEART: Tachycardic, normal S1 and S2, no murmurs, rubs or gallops ABDOMEN: Soft, nontender, normoactive bowel sounds. No guarding, no rebound. No masses EXTREMITIES: Normal range of motion, no edema. No clubbing or cyanosis. No cords, erythema, or tenderness NEUROLOGICAL: Cranial nerves II through XII grossly intact. Normal speech, normal gait SKIN: Warm, Dry, normal turgor, no rashes or lesions noted - Medical Decision Making 01/23/18 17:19 Documentation prepared by Candy Carey, acting as medical anthropology director for Kindra Rodriguez MD. 01/23/18 18:39 Phone call placed to ICU admitting physician. Call returned promptly by Dr. Lee. Case was discussed Phone call placed to Dr. Mooney, admitting for Dr. Cast. Call returned promptly. Case discussed. 01/23/18 18:52 Phone call placed to Dr. Paul. Call was returned promptly and case was discussed. <Candy Carey - Last Filed: 01/23/18 18:53>
[2018-01-23] MEDS ORDERED: SODIUM CHLORIDE 0.9% 1000 ML INFUS.BAG IV STA (16:43)
[2018-01-23] MEDS ORDERED: PIPERACILLIN/TAZOB 3.375 GM 3.375 GM in DEXTROSE 5%-WATER - 50 ML IVPB ONE (16:44)
[2018-01-23] MEDS ORDERED: ACETAMINOPHEN 1000 MG/100 ML VIAL (NON FORMULARY) IVPB ONE (16:44)
[2018-01-23] MEDS ORDERED: VANCOMYCIN 1,000 MG in DEXTROSE 5%-WATER - 250 ML IVPB ONE (16:44)
[2018-01-23 16:56] LABS: BASO % 0.4 % (0-2.0); EOS % 0.1 % (0-4.5); HEMATOCRIT 40.5 % (35.4-49); HEMOGLOBIN 12.8 GM/dL (11.7-16.9); LYMPH % 9.4 % (8-40); MCH 26.8 pg (25.7-33.7); MCHC 31.5 g/dl (32.0-35.9); MEAN CELL VOLUME 84.9 fl (80-96); MEAN PLT VOLUME 11.1 fl (7.5-11.1); MONO % 5.9 % (3.8-10.2); NEUT % 84.2 % (42.8-82.8); PLATELET COUNT 194 K/MM3 (134-434); RBC 4.77 M/mm3 (4.00-5.60); RDW 18.7 % (11.9-15.9); WHITE BLOOD COUNT 9.9 K/mm3 (4.0-10.0)
[2018-01-23 17:22] LABS: ALBUMIN 2.3 g/dl (3.4-5.0); ANION GAP 11 (8-16); BILIRUBIN,TOTAL 0.6 mg/dL (0.2-1.0); BLOOD UREA NITROGEN 67 mg/dL (7-18); CALCIUM 8.6 mg/dL (8.5-10.1); CHLORIDE 128 mmol/L (98-107); CO2 26 mmol/L (21-32); CREATININE 2.2 mg/dL (0.7-1.3); POTASSIUM 4.4 mmol/L (3.5-5.1); SGOT/AST 22 U/L (15-37); SGPT/ALT 18 U/L (12-78); TOT PROT 6.3 g/dl (6.4-8.2)
[2018-01-23 17:25] LABS: ALK PHOS 70 U/L (45-117)
[2018-01-23 17:26] LABS: INR 1.59 (0.82-1.09)
[2018-01-23 17:28] LABS: ACTIVATED PTT 28.8 SECONDS (26.9-34.4)
--- NOTE | 2018-01-23 17:28 | PDOC ---
History of Present Illness - General Chief Complaint: SIRS, Suspected/Possible Stated Complaint: infection Time Seen by Provider: 01/23/18 16:40 History Source: EMS, Family Exam Limitations: Clinical Condition - History of Present Illness Initial Comments: This is an 87 YOM with h/o recurrent UTI refractory to multiple abx, DM, CAD, CABG, HTN, HLD, CVA (residual right sided weakness) who p/w increased confusion and lethargy and decreased PO intake over the past few days. He was BIBA when his caregiver called 911 because he had become unresponsive at home this afternoon. EMS noted that the patient's GCS was 10 for the duration of their care, he was tachypneic to 30, his pulse oxygenation was in the 80s, and his blood pressure was in the 80s/40s. He felt warm to the touch. The son notes that the patient was admitted earlier this year for similar symptoms which ended up being related to a UTI. The family explains that the patient is a DNR/ DNI patient and the children are HCP. The son is the Power of Nursing Education Specialist. Past History - Past Medical History Allergies/Adverse Reactions: Allergies Allergy/AdvReac Type Severity Reaction Status Date / Time No Known Allergies Allergy Verified 11/05/17 12:45 Home Medications: Ambulatory Orders Aspirin [ASA -] 81 mg PO DAILY 11/05/17 Finasteride [Proscar -] 5 mg PO DAILY 11/05/17 Metformin HCl 500 mg PO BID 11/05/17 Simvastatin 40 mg PO HS 11/05/17 Tamsulosin HCl 0.4 mg PO DAILY 11/05/17 Amlodipine Besylate 10 mg PO DAILY 01/23/18 Metoprolol Tartrate 25 mg PO DAILY 01/23/18 Cardiac Disorders: Yes (triple bypass) CVA: Yes (right sided residule weakness) COPD: No Diabetes: Yes HTN: Yes Hypercholesterolemia: Yes - Surgical History Cardiac Surgery: Yes (triple bypass) - Immunization History Immunization Up to Date: Yes - Suicide/Smoking/Psychosocial Hx Smoking History: Unknown if ever smoked Have you smoked in the past 12 months: No Information on smoking cessation initiated: No Hx Alcohol Use: No Drug/Substance Use Hx: No Substance Use Type: None Review of Systems - Review of Systems Able to Perform ROS?: No (clinical condition) *Physical Exam - Vital Signs Last Vital Signs Temp Pulse Resp BP Pulse Ox 105 F H 97 H 24 84/55 93 L 01/23/18 16:23 01/23/18 17:20 01/23/18 17:20 01/23/18 17:20 01/23/18 17:20 - Physical Exam General Appearance: Yes: Cachetic, Other (obtunded, appears dehydrated, accompanied by family at bedside) HEENT: positive: EOMI, BRIANDA, Other (dry mucous membranes, a bit pale appearing, sunken facial features). negative: Scleral Icterus (R), Scleral Icterus (L), Nasal Congestion Neck: positive: Trachea midline, Supple. negative: Tender, Rigid Respiratory/Chest: positive: Lungs Clear, Respiratory Distress, Rapid RR. negative: Crackles, Rhonchi, Stridor, Wheezing Cardiovascular: positive: Regular Rhythm, Regular Rate, Tachycardia, Other ( delayed capillary refill, cool extremities). negative: Murmur Gastrointestinal/Abdominal: positive: Normal Bowel Sounds, Soft. negative: Tender, Organomegaly, Pulsatile Mass, Guarding Musculoskeletal: positive: Normal Inspection. negative: Decreased Range of Motion, Vertebral Tenderness Extremity: positive: Normal Range of Motion, Other (delayed capillary refill). negative: Tender, Cyanosis Integumentary: positive: Normal Color, Dry, Warm. negative: Erythema, Rash, Bruising Neurologic: positive: Other (withdrawling to pain, moving all extremities sporadically, not following any commands, ). negative: Fully Oriented, Alert, Facial Droop ED Treatment Course - LABORATORY CBC & Chemistry Diagram: 01/23/18 16:44 01/23/18 16:44 - ADDITIONAL ORDERS Additional order review: Laboratory Results 01/23/18 17:14 Anticoagulation Therapy No Result Required. O2 Delivery Device No Result Required. Oxygen Flow Rate No Result Required. Vent Mode No Result Required. Vent Rate No Result Required. Mechanical Rate No Result Required. Pressure Support Vent No Result Required. 01/23/18 16:44 RBC 4.77 D MCV 84.9 MCHC 31.5 L RDW 18.7 H MPV 11.1 D Neutrophils % 84.2 H D Lymphocytes % 9.4 D Monocytes % 5.9 Eosinophils % 0.1 D Basophils % 0.4 - RADIOLOGY Radiology Studies Ordered: Category Date Time Status CHEST X-RAY PORTABLE* [RAD] Stat Radiology 01/23/18 16:43 Ordered - Medications Given in the ED: ED Medications Discontinued Medications Generic Name Dose Route Start Last Admin Trade Name Christophe PRN Reason Stop Dose Admin Acetaminophen 1,000 mg 01/23/18 16:44 01/23/18 16:59 Ofirmev Injection - IVPB 01/23/18 16:45 1,000 mg ONCE ONE Administration Piperacillin Sod/Tazobactam 50 mls @ 100 mls/hr 01/23/18 16:44 01/23/18 16:45 Sod 3.375 gm/ Dextrose IVPB 01/23/18 17:13 100 mls/hr ONCE ONE Administration Protocol Sodium Chloride 1,225 ml 01/23/18 16:43 01/23/18 17:00 Normal Saline - 30 ml/kg (1225 ml) 01/23/18 16:44 1,225 ml IV Administration ONCE STA Medical Decision Making - Medical Decision Making Elderly male with frequent UTI p/w acute worsening of mental status, less responsive, febrile, tachycardic, respiratory distress. Initial Vital Signs Temp Pulse Resp BP Pulse Ox 105 F H 106 H 43 H 102/58 90 L 01/23/18 16:23 01/23/18 16:23 01/23/18 16:23 01/23/18 16:23 01/23/18 16:23 Exam: Obtunded, DDX IBNLT: VS abnormalities (e.g. fever), toxic-metabolic (e.g. medications, drugs, electrolytes, thyroid), structural (e.g. epilepsy, CVA/TIA, ACS, PE), infectious (e.g. UTI, PNA, bronchitis, cellulitis, meningitis), psychiatric ( e.g. delirium, dementia, psychosis), etc. W/U ordered: CBCD CMP Mg Troponin CK CKMB TSH UA UCx EKG CXR HCT WO contrast TX ordered: EKG: CXR: Head CT: Laboratory Tests 01/23/18 01/23/18 01/23/18 16:44 16:44 16:44 WBC 9.9 RBC 4.77 D Hgb 12.8 D Hct 40.5 D MCV 84.9 MCH 26.8 MCHC 31.5 L RDW 18.7 H Plt Count 194 MPV 11.1 D Neutrophils % 84.2 H D Lymphocytes % 9.4 D Monocytes % 5.9 Eosinophils % 0.1 D Basophils % 0.4 PT with INR 18.00 H INR 1.59 H PTT (Actin FS) 28.8 Anticoagulation Therapy Puncture Site ABG pH ABG pCO2 at Pt Temp ABG pO2 at Pt Temp ABG HCO3 ABG O2 Sat (Measured) ABG O2 Content ABG Base Excess Sadiq Test Carboxyhemoglobin Methemoglobin O2 Delivery Device Oxygen Flow Rate Vent Mode Vent Rate Mechanical Rate Pressure Support Vent Sodium 165 H* D Potassium 4.4 Chloride 128 H D Carbon Dioxide 26 Anion Gap 11 BUN 67 H D Creatinine 2.2 H D Creat Clearance w eGFR 28.59 Random Glucose 306 H* D Lactic Acid Calcium 8.6 D Total Bilirubin 0.6 D AST 22 ALT 18 Alkaline Phosphatase 70 Creatine Kinase 190 Creatine Kinase Index 0.5 CK-MB (CK-2) < 1.000 Total Protein 6.3 L D Albumin 2.3 L D Blood Type Antibody Screen 01/23/18 01/23/18 01/23/18 16:44 16:44 16:46 WBC RBC Hgb Hct MCV MCH MCHC RDW Plt Count MPV Neutrophils % Lymphocytes % Monocytes % Eosinophils % Basophils % PT with INR INR PTT (Actin FS) Anticoagulation Therapy Puncture Site ABG pH ABG pCO2 at Pt Temp ABG pO2 at Pt Temp ABG HCO3 ABG O2 Sat (Measured) ABG O2 Content ABG Base Excess Sadiq Test Carboxyhemoglobin Methemoglobin O2 Delivery Device Oxygen Flow Rate Vent Mode Vent Rate Mechanical Rate Pressure Support Vent Sodium Potassium Chloride Carbon Dioxide Anion Gap BUN Creatinine Creat Clearance w eGFR Random Glucose Lactic Acid 2.9 H* Calcium Total Bilirubin AST ALT Alkaline Phosphatase Creatine Kinase Creatine Kinase Index CK-MB (CK-2) Cancelled Total Protein Albumin Blood Type B POSITIVE Antibody Screen Negative 01/23/18 17:14 WBC RBC Hgb Hct MCV MCH MCHC RDW Plt Count MPV Neutrophils % Lymphocytes % Monocytes % Eosinophils % Basophils % PT with INR INR PTT (Actin FS) Anticoagulation Therapy No Result Required. Puncture Site No Result Required. ABG pH 7.45 ABG pCO2 at Pt Temp 39.1 ABG pO2 at Pt Temp 72.0 ABG HCO3 26.6 H ABG O2 Sat (Measured) 94.7 ABG O2 Content 9.5 L* ABG Base Excess 2.9 H Sadiq Test Positive Carboxyhemoglobin 2.2 H Methemoglobin 1.1 O2 Delivery Device No Result Required. Oxygen Flow Rate No Result Required. Vent Mode No Result Required. Vent Rate No Result Required. Mechanical Rate No Result Required. Pressure Support Vent No Result Required. Sodium Potassium Chloride Carbon Dioxide Anion Gap BUN Creatinine Creat Clearance w eGFR Random Glucose Lactic Acid Calcium Total Bilirubin AST ALT Alkaline Phosphatase Creatine Kinase Creatine Kinase Index CK-MB (CK-2) Total Protein Albumin Blood Type Antibody Screen Repeat Vital Signs Temperature 98.9 F 01/23/18 18:15 Pulse Rate 80 01/23/18 19:26 Respiratory Rate 18 01/23/18 19:26 Blood Pressure 83/48 01/23/18 19:26 O2 Sat by Pulse Oximetry (%) 100 01/23/18 19:26 Reassessment: Patient more responsive, mouthing and vocalizing some words, tachypnea improving, little UOP in [place] bag. Dr. Rodriguez spoke with Dr. Mooney, admitting for Dr. Cast currently. Patient to be admitted to Dr. Mooney to Inpatient Tele, Decision to Admit order placed. Consult order placed to Dr. Paul. *DC/Admit/Observation/Transfer Diagnosis at time of Disposition: Sepsis, Hypernatremia, AMANDA (acute kidney injury) - Discharge Dispostion Condition at time of disposition: Guarded Admit: Yes - Referrals Referrals: Elio Cast MD [Primary Care Provider] - - Patient Instructions - Post Discharge Activity
[2018-01-23 17:29] LABS: ARTERIAL BLD GAS O2 SATURATION 94.7 % (90-98.9); ARTERIAL BLOOD GAS BASE EXCESS 2.9 meq/l (-2-2); ARTERIAL BLOOD GAS PCO2 39.1 mmHg (35-45); ARTERIAL BLOOD GAS pH 7.45 (7.35-7.45); CARBOXYHEMOGLOBIN 2.2 gm% (0.5-2.0)
[2018-01-23 17:29] LABS: GLUCOSE,RANDOM 306 mg/dL (74-106); SODIUM 165 mmol/L (136-145)
[2018-01-23 17:36] LABS: ALLENS TEST POSITIVE
[2018-01-23] MEDS ORDERED: SODIUM CHLORIDE 1,000 ML IV SCH (19:30)
[2018-01-23 19:31] LABS: URINE APPEARANCE TURBID; URINE BILIRUBIN NEGATIVE (<2.0 mg/dL); URINE COLOR AMBER; URINE GLUCOSE (UA) 2+ (NEGATIVE); URINE KETONE NEGATIVE (NEGATIVE); URINE NITRITE NEGATIVE (NEGATIVE)
[2018-01-23 19:33] LABS: URINE LEUK ESTERASE 3+ (NEGATIVE); URINE PROTEIN 2+ (NEGATIVE)
[2018-01-23 19:34] LABS: EPI CELLS RARE /HPF (FEW); URINE BACTERIA MANY /hpf (NONE SEEN); URINE HYALINE CAST 8 /lpf; URINE MUCUS RARE; YEAST FEW
[2018-01-23] MEDS ORDERED: INSULIN REGULAR HUMAN 100 UNITS/ML *VIAL ONE (20:51)
[2018-01-23] MEDS: INSULIN SLIDING SCALE (NOVOLOG) 1 VIAL SQ SCH (20:54)
[2018-01-23 21:17] LABS: ANION GAP 6 (8-16); BLOOD UREA NITROGEN 64 mg/dL (7-18); CALCIUM 7.4 mg/dL (8.5-10.1); CHLORIDE 131 mmol/L (98-107); CO2 26 mmol/L (21-32); CREATININE 2.2 mg/dL (0.7-1.3); POTASSIUM 4.3 mmol/L (3.5-5.1)
[2018-01-23 21:22] LABS: GLUCOSE,RANDOM 306 mg/dL (74-106); SODIUM 163 mmol/L (136-145)
[2018-01-23] MEDS ORDERED: PIPERACILLIN/TAZOB 3.375 GM 3.375 GM in DEXTROSE 5%-WATER - 50 ML IVPB SCH (22:00)
[2018-01-23] MEDS ORDERED: ATORVASTATIN CA 20 MG TABLET (FP) PO SCH (22:00)
--- NOTE | 2018-01-23 22:17 | HP ---
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, recently discharged from [facility] to Rehab after treated for UTI AMANDA to a Rehab patient discharged home 2 wks ago as per family patient ahs poor PO intake, developed gradually worsening SOB today , DYE MAKER noticed patient is confused , lethargic and respiratory distress BIBEMS to Ed paytient was hyotensive dehydrated + UA and , recived IV hydration, IV Vancomycine and Zosyn 3 Ltr NS , gradually some improvement in MS, patient remained Hypotensive despite Hydration, family refused for Ctr line for pressers - Past Medical History 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: CVA (hemorrhagic, 2016) Cardiovascular: Yes: CAD, HTN, Hyperlipdemia Renal/: Yes: BPH Musculoskeletal: Yes: Hemiparesis (right) Endocrine: Yes: Diabetes Mellitus - Past Surgical History Past Surgical History: Yes: CABG (2004) - Smoking History Smoking history: Unknown if ever smoked Have you smoked in the past 12 months: No - Alcohol/Substance Use Hx Alcohol Use: No History of Substance Use: reports: None - Social History ADL: Support Services History of Recent Travel: No Home Medications - Allergies Allergies/Adverse Reactions: Allergies Allergy/AdvReac Type Severity Reaction Status Date / Time No Known Allergies Allergy Verified 11/05/17 12:45 - Home Medications Home Medications: Ambulatory Orders Aspirin [ASA -] 81 mg PO DAILY 11/05/17 Finasteride [Proscar -] 5 mg PO DAILY 11/05/17 Metformin HCl 500 mg PO BID 11/05/17 Simvastatin 40 mg PO HS 11/05/17 Tamsulosin HCl 0.4 mg PO DAILY 11/05/17 Amlodipine Besylate 10 mg PO DAILY 01/23/18 Metoprolol Tartrate 25 mg PO DAILY 01/23/18 Family Disease History - Family Disease History Family History: Unremarkable Review of Systems Unable to obtain ROS, reason: Due to Mental Status Physical Examination Vital Signs: Vital Signs Temperature 98.9 F 01/23/18 18:15 Pulse Rate 80 01/23/18 21:34 Respiratory Rate 18 01/23/18 21:34 Blood Pressure 84/49 01/23/18 21:34 O2 Sat by Pulse Oximetry (%) 100 01/23/18 21:34 Elderly man cachectic confused, sick looking HEENT:MM dry, anemia, NECK: No JVD No Bruit CHEST: B/L Crepts CVS: S1S2 R no murmur ABD: Scaphoid EXT and Back: Stage 2-3 Sacral Decubitus no edema feet PAVING MACHINE OPERATOR: Patient is confused and disoriented moving extremities Labs: CBC, BMP 01/23/18 16:44 01/23/18 19:29 Imaging - Results X-ray: Report Reviewed (No Obvious infiltrates) Cat Scan: Report Reviewed (No acute changes) EKG: Report Reviewed (No Interval changes) Problem List - Problems (1) Sepsis Assessment/Plan: Due to UTI recived IV Hydration, Zosyn and Vancomycin will cont Zosyn F/U Cultures and ID recommondations Code(s): A41.9 - SEPSIS, UNSPECIFIED ORGANISM (2) Hypernatremia Assessment/Plan: Sever Hypernatremia with AMS IV Hydration F/U BMP q 6 hrly Code(s): E87.0 - HYPEROSMOLALITY AND HYPERNATREMIA (3) UTI (urinary tract infection) Assessment/Plan: Cont Zosyn F/U Urine and Blood culture and ID recommendations Code(s): N39.0 - URINARY TRACT INFECTION, SITE NOT SPECIFIED Qualifiers: Urinary tract infection type: acute cystitis Hematuria presence: without hematuria Qualified Code(s): N30.00 - Acute cystitis without hematuria (4) Acute metabolic encephalopathy Assessment/Plan: Due to Hyponatremia an, uremia and sepsis F/U Clinical course CT scan no acute changes Code(s): G93.41 - METABOLIC ENCEPHALOPATHY (5) CAD (coronary artery disease) Assessment/Plan: S/P CABG mild elevated trop no active issue Code(s): I25.10 - ATHSCL HEART DISEASE OF [place] CORONARY ARTERY W/O ANG PCTRS Qualifiers: Coronary Disease-Associated Artery/Lesion type: bypass graft [place] vs. transplanted heart: [place] heart Associated angina: without angina Qualified Code(s): I25.810 - Atherosclerosis of coronary artery bypass graft(s) without angina pectoris (6) Hemiparesis Assessment/Plan: Old CVA no active issue Code(s): G81.90 - HEMIPLEGIA, UNSPECIFIED AFFECTING UNSPECIFIED SIDE Qualifiers: Cerebrovascular disease type: nontraumatic intracerebral hemorrhage (7) HTN (hypertension) Assessment/Plan: at present low BP Hold are BP meds Code(s): I10 - ESSENTIAL (PRIMARY) HYPERTENSION Qualifiers: Hypertension type: essential hypertension Qualified Code(s): I10 - Essential (primary) hypertension (8) Acute kidney injury superimposed on CKD Assessment/Plan: IV hydration, Foleys cathter F/U Renal recommondations Code(s): N17.9 - ACUTE KIDNEY FAILURE, UNSPECIFIED; N18.9 - CHRONIC KIDNEY DISEASE, UNSPECIFIED (9) Decubital ulcer Assessment/Plan: At [facility] area f/u wound care Code(s): L89.90 - PRESSURE ULCER OF UNSPECIFIED SITE, UNSPECIFIED STAGE
[2018-01-23] MEDS ORDERED: SODIUM CHLORIDE 0.9% 500 ML INFUS.BAG IV ONE (22:36)
[2018-01-24] MEDS: INSULIN SLIDING SCALE (NOVOLOG) 1 VIAL SQ SCH ×4 (02:30→18:52)
[2018-01-24] MEDS ORDERED: INSULIN REGULAR HUMAN 100 UNITS/ML *VIAL ONE (03:39)
[2018-01-24] MEDS ORDERED: metFORMIN HCL 500 MG TABLET (FP) PO SCH (07:00)
[2018-01-24] MEDS ORDERED: TAMSULOSIN HCL 0.4 MG CAP.ER.24H (FP) PO SCH (08:30)
[2018-01-24 08:34] LABS: BASO % 0.5 % (0-2.0); EOS % 0.1 % (0-4.5); HEMATOCRIT 33.5 % (35.4-49); HEMOGLOBIN 10.6 GM/dL (11.7-16.9); LYMPH % 16.4 % (8-40); MCH 26.6 pg (25.7-33.7); MCHC 31.7 g/dl (32.0-35.9); MEAN CELL VOLUME 84.1 fl (80-96); MEAN PLT VOLUME 10.6 fl (7.5-11.1); MONO % 2.7 % (3.8-10.2); NEUT % 80.3 % (42.8-82.8); PLATELET COUNT 152 K/MM3 (134-434); RBC 3.98 M/mm3 (4.00-5.60); WHITE BLOOD COUNT 12.2 K/mm3 (4.0-10.0)
[2018-01-24 08:59] LABS: ALBUMIN 1.9 g/dl (3.4-5.0); ALK PHOS 60 U/L (45-117); ANION GAP 4 (8-16); BILIRUBIN,TOTAL 1.1 mg/dL (0.2-1.0); BLOOD UREA NITROGEN 54 mg/dL (7-18); CALCIUM 7.2 mg/dL (8.5-10.1); CHLORIDE 137 mmol/L (98-107); CO2 26 mmol/L (21-32); CREATININE 1.4 mg/dL (0.7-1.3); GLUCOSE,RANDOM 73 mg/dL (74-106); POTASSIUM 3.2 mmol/L (3.5-5.1); SGOT/AST 23 U/L (15-37); SGPT/ALT 18 U/L (12-78); TOT PROT 5.3 g/dl (6.4-8.2)
[2018-01-24] MEDS ORDERED: POTASSIUM CHLORIDE 30 MEQ in SODIUM CHLORIDE 285 ML IVPB ONE (09:15)
[2018-01-24 09:34] LABS: SODIUM 167 mmol/L (136-145)
[2018-01-24] MEDS ORDERED: amLODIPine BESYLATE 10 MG TABLET (FP) PO SCH (10:00)
[2018-01-24] MEDS ORDERED: ASPIRIN 81 MG CHEWABLE TABLETS PO SCH (10:00)
[2018-01-24] MEDS ORDERED: METOPROLOL TARTRATE 25 MG TABLET (FP) PO SCH (10:00)
[2018-01-24] MEDS ORDERED: FINASTERIDE 5 MG TABLET (FP) PO SCH (10:00)
[2018-01-24 10:04] LABS: MAGNESIUM 2.4 mg/dL (1.8-2.4)
--- NOTE | 2018-01-24 10:45 | EKG ---
Test Reason : Blood Pressure : / mmHG Vent. Rate : 107 BPM Atrial Rate : 107 BPM P-R Int : 132 ms QRS Dur : 082 ms QT Int : 328 ms P-R-T Axes : 063 -56 076 degrees QTc Int : 437 ms SINUS TACHYCARDIA LEFT AXIS DEVIATION INFERIOR INFARCT , AGE UNDETERMINED ABNORMAL ECG WHEN COMPARED WITH ECG OF 05-NOV-2017 13:45, NO SIGNIFICANT CHANGE WAS FOUND Confirmed by ANGY VELÁSQUEZ MD ([id number]) on 01/24/2018 10:44:59 AM Referred By: Confirmed By:ANGY VELÁSQUEZ MD
--- NOTE | 2018-01-24 10:58 | PN ---
Progress Note, Physician Chief Complaint: Unable to obtain, patient appears stable and smiling on exam but non-verbal. - Current Medication List Current Medications: Active Medications Piperacillin Sod/Tazobactam (Sod 3.375 gm/ Dextrose) 50 mls @ 100 mls/hr IVPB BID EJ PRN Reason: Protocol Sodium Chloride (Normal Saline -) 1,000 mls @ 150 mls/hr IV ASDIR EJ Last Admin: 01/23/18 19:29 Dose: 150 mls/hr Potassium Chloride 10 meq/ (Sodium Chloride) 105 mls @ 105 mls/hr IVPB Q1H EJ Stop: 01/24/18 12:14 Insulin Aspart (Novolog Vial Sliding Scale -) 1 vial SQ Q6H EJ PRN Reason: Protocol Last Admin: 01/24/18 02:30 Dose: 2 units - Objective Vital Signs: Vital Signs Temperature 37.0 C 01/24/18 10:09 Pulse Rate 74 01/24/18 10:09 Respiratory Rate 79 H 01/24/18 10:09 Blood Pressure 106/42 01/24/18 10:09 O2 Sat by Pulse Oximetry (%) 95 01/24/18 09:00 Constitutional: Yes: Well Nourished, No Distress, Calm Cardiovascular: Yes: Regular Rate and Rhythm. No: Gallop, Murmur, Rub Respiratory: Yes: Regular, CTA Bilaterally, On Nasal O2. No: Rales, Rhonchi, Wheezes Gastrointestinal: Yes: Normal Bowel Sounds, Soft. No: Distention, Tenderness Extremities: Yes: WNL Edema: No Labs: CBC, BMP 01/24/18 08:10 01/24/18 08:10 INR, PTT INR 1.59 (0.82-1.09) H 01/23/18 16:44 Problem List - Problems (1) UTI (urinary tract infection) Assessment/Plan: -urinalysis positive for UTI -awaiting culture results -ID following and appreciate assistance -continue zosyn Code(s): N39.0 - URINARY TRACT INFECTION, SITE NOT SPECIFIED Qualifiers: Urinary tract infection type: acute cystitis Hematuria presence: without hematuria Qualified Code(s): N30.00 - Acute cystitis without hematuria (2) Pneumonia Assessment/Plan: -continue zosyn per ID Code(s): J18.9 - PNEUMONIA, UNSPECIFIED ORGANISM (3) AMANDA (acute kidney injury) Assessment/Plan: -improving -continue IVF -nephrology following and appreciate assistance Code(s): N17.9 - ACUTE KIDNEY FAILURE, UNSPECIFIED (4) Dehydration Assessment/Plan: -continue IVF as above Code(s): E86.0 - DEHYDRATION (5) Hypernatremia Assessment/Plan: -worsened today -nephrology following and on D5 1/3NS -monitor for improvement Code(s): E87.0 - HYPEROSMOLALITY AND HYPERNATREMIA (6) Sepsis Assessment/Plan: -present on admission -continue IV antibiotics and fluids Code(s): A41.9 - SEPSIS, UNSPECIFIED ORGANISM (7) BPH (benign prostatic hyperplasia) Assessment/Plan: -consult urology Code(s): N40.0 - BENIGN PROSTATIC HYPERPLASIA WITHOUT LOWER URINRY TRACT SYMP (8) CAD (coronary artery disease) Assessment/Plan: -quiescent Code(s): I25.10 - ATHSCL HEART DISEASE OF [place] CORONARY ARTERY W/O ANG PCTRS Qualifiers: Coronary Disease-Associated Artery/Lesion type: bypass graft [place] vs. transplanted heart: [place] heart Associated angina: without angina Qualified Code(s): I25.810 - Atherosclerosis of coronary artery bypass graft(s) without angina pectoris (9) DM (diabetes mellitus) Assessment/Plan: -currently npo -on D5 1/3 NS Code(s): E11.9 - TYPE 2 DIABETES MELLITUS WITHOUT COMPLICATIONS Qualifiers: Diabetes mellitus type: type 2 Diabetes mellitus mcfp insulin use: without terminal gauger supervisor use (10) Acute metabolic encephalopathy Assessment/Plan: -improving today per family -continue treating underlying sepsis Code(s): G93.41 - METABOLIC ENCEPHALOPATHY (11) HTN (hypertension) Assessment/Plan: -low normal -continue IVF Code(s): I10 - ESSENTIAL (PRIMARY) HYPERTENSION Qualifiers: Hypertension type: essential hypertension Qualified Code(s): I10 - Essential (primary) hypertension
[2018-01-24] MEDS: POTASSIUM CHLORIDE 10 MEQ in SODIUM CHLORIDE 100 ML IVPB SCH ×3 (11:14→13:44)
[2018-01-24] MEDS ORDERED: SODIUM CHLORIDE 1,000 ML IV STA (11:28)
[2018-01-24] MEDS ORDERED: DEXTROSE 5%-0.45% SALINE 1,000 ML IV SCH (11:30)
[2018-01-24] MEDS ORDERED: PANTOPRAZOLE 40 MG TABLET (FP) PO SCH (11:45)
--- NOTE | 2018-01-24 11:49 | PN ---
Physical Exam: SUBJECTIVE: Patient seen and examined OBJECTIVE: Vital Signs Period Temp Pulse Resp BP Sys/Zamudio Pulse Ox Last 24 Hr 98.6 F-105 F 72-106 18-79 82-120/39-91 90-100 GENERAL: The patient is awake, alert, and fully oriented, in no acute distress. HEAD: Normal with no signs of trauma. EYES: PERRL, extraocular movements intact, sclera anicteric, conjunctiva clear. No ptosis. ENT: Ears normal, nares patent, oropharynx clear without exudates, moist mucous membranes. NECK: Trachea midline, full range of motion, supple. LUNGS: Breath sounds equal, clear to auscultation bilaterally, no wheezes, no crackles, no accessory muscle use. HEART: Regular rate and rhythm, S1, S2 without murmur, rub or gallop. ABDOMEN: Soft, nontender, nondistended, normoactive bowel sounds, no guarding, no rebound, no hepatosplenomegaly, no masses. EXTREMITIES: 2+ pulses, warm, well-perfused, no edema. NEUROLOGICAL: Cranial nerves II through XII grossly intact. Normal speech, gait not observed. PSYCH: Normal mood, normal affect. SKIN: Warm, dry, normal turgor, no rashes or lesions noted Laboratory Results - last 24 hr 01/23/18 01/23/18 01/23/18 16:44 16:44 16:44 WBC 9.9 RBC 4.77 D Hgb 12.8 D Hct 40.5 D MCV 84.9 MCH 26.8 MCHC 31.5 L RDW 18.7 H Plt Count 194 MPV 11.1 D Neutrophils % 84.2 H D Lymphocytes % 9.4 D Monocytes % 5.9 Eosinophils % 0.1 D Basophils % 0.4 PT with INR 18.00 H INR 1.59 H PTT (Actin FS) 28.8 Anticoagulation Therapy Puncture Site ABG pH ABG pCO2 at Pt Temp ABG pO2 at Pt Temp ABG HCO3 ABG O2 Sat (Measured) ABG O2 Content ABG Base Excess Sadiq Test Carboxyhemoglobin Methemoglobin O2 Delivery Device Oxygen Flow Rate Vent Mode Vent Rate Mechanical Rate Pressure Support Vent Sodium 165 H* D Potassium 4.4 Chloride 128 H D Carbon Dioxide 26 Anion Gap 11 BUN 67 H D Creatinine 2.2 H D Creat Clearance w eGFR 28.59 POC Glucometer Random Glucose 306 H* D Hemoglobin A1c % Lactic Acid Calcium 8.6 D Magnesium Total Bilirubin 0.6 D AST 22 ALT 18 Alkaline Phosphatase 70 Creatine Kinase 190 Creatine Kinase Index 0.5 CK-MB (CK-2) < 1.000 Troponin I Total Protein 6.3 L D Albumin 2.3 L D Urine Color Urine Appearance Urine pH Ur Specific [place] Urine Protein Urine Glucose (UA) Urine Ketones Urine Blood Urine Nitrite Urine Bilirubin Urine Urobilinogen Ur Leukocyte Esterase Urine WBC (Auto) Urine RBC (Auto) Ur Epithelial Cells Urine Bacteria Hyaline Casts Urine Mucus Urine Yeast Blood Type Antibody Screen 01/23/18 01/23/18 01/23/18 16:44 16:44 16:46 WBC RBC Hgb Hct MCV MCH MCHC RDW Plt Count MPV Neutrophils % Lymphocytes % Monocytes % Eosinophils % Basophils % PT with INR INR PTT (Actin FS) Anticoagulation Therapy Puncture Site ABG pH ABG pCO2 at Pt Temp ABG pO2 at Pt Temp ABG HCO3 ABG O2 Sat (Measured) ABG O2 Content ABG Base Excess Sadiq Test Carboxyhemoglobin Methemoglobin O2 Delivery Device Oxygen Flow Rate Vent Mode Vent Rate Mechanical Rate Pressure Support Vent Sodium Potassium Chloride Carbon Dioxide Anion Gap BUN Creatinine Creat Clearance w eGFR POC Glucometer Random Glucose Hemoglobin A1c % Lactic Acid 2.9 H* Calcium Magnesium Total Bilirubin AST ALT Alkaline Phosphatase Creatine Kinase Creatine Kinase Index CK-MB (CK-2) Cancelled Troponin I Total Protein Albumin Urine Color Urine Appearance Urine pH Ur Specific [place] Urine Protein Urine Glucose (UA) Urine Ketones Urine Blood Urine Nitrite Urine Bilirubin Urine Urobilinogen Ur Leukocyte Esterase Urine WBC (Auto) Urine RBC (Auto) Ur Epithelial Cells Urine Bacteria Hyaline Casts Urine Mucus Urine Yeast Blood Type B POSITIVE Antibody Screen Negative 01/23/18 01/23/18 01/23/18 17:14 19:02 19:25 WBC RBC Hgb Hct MCV MCH MCHC RDW Plt Count MPV Neutrophils % Lymphocytes % Monocytes % Eosinophils % Basophils % PT with INR INR PTT (Actin FS) Anticoagulation Therapy No Result Required. Puncture Site No Result Required. ABG pH 7.45 ABG pCO2 at Pt Temp 39.1 ABG pO2 at Pt Temp 72.0 ABG HCO3 26.6 H ABG O2 Sat (Measured) 94.7 ABG O2 Content 9.5 L* ABG Base Excess 2.9 H Sadiq Test Positive Carboxyhemoglobin 2.2 H Methemoglobin 1.1 O2 Delivery Device No Result Required. Oxygen Flow Rate No Result Required. Vent Mode No Result Required. Vent Rate No Result Required. Mechanical Rate No Result Required. Pressure Support Vent No Result Required. Sodium Potassium Chloride Carbon Dioxide Anion Gap BUN Creatinine Creat Clearance w eGFR POC Glucometer Random Glucose Hemoglobin A1c % Lactic Acid 4.3 H* Calcium Magnesium Total Bilirubin AST ALT Alkaline Phosphatase Creatine Kinase Creatine Kinase Index CK-MB (CK-2) Troponin I Total Protein Albumin Urine Color Liane Urine Appearance Turbid Urine pH 5.0 Ur Specific [place] 1.024 Urine Protein 2+ H Urine Glucose (UA) 2+ H Urine Ketones Negative Urine Blood 3+ H Urine Nitrite Negative Urine Bilirubin Negative Urine Urobilinogen 2.0 Ur Leukocyte Esterase 3+ H Urine WBC (Auto) 557 Urine RBC (Auto) 50 Ur Epithelial Cells Rare Urine Bacteria Many Hyaline Casts 8 Urine Mucus Rare Urine Yeast Few Blood Type Antibody Screen 01/23/18 01/23/18 01/23/18 19:29 20:40 23:22 WBC RBC Hgb Hct MCV MCH MCHC RDW Plt Count MPV Neutrophils % Lymphocytes % Monocytes % Eosinophils % Basophils % PT with INR INR PTT (Actin FS) Anticoagulation Therapy Puncture Site ABG pH ABG pCO2 at Pt Temp ABG pO2 at Pt Temp ABG HCO3 ABG O2 Sat (Measured) ABG O2 Content ABG Base Excess Sadiq Test Carboxyhemoglobin Methemoglobin O2 Delivery Device Oxygen Flow Rate Vent Mode Vent Rate Mechanical Rate Pressure Support Vent Sodium 163 H* Potassium 4.3 Chloride 131 H Carbon Dioxide 26 Anion Gap 6 L BUN 64 H Creatinine 2.2 H Creat Clearance w eGFR POC Glucometer [phone] Random Glucose 306 H* Hemoglobin A1c % Lactic Acid Calcium 7.4 L Magnesium Total Bilirubin AST ALT Alkaline Phosphatase Creatine Kinase Creatine Kinase Index CK-MB (CK-2) Troponin I 0.07 H D Total Protein Albumin Urine Color Urine Appearance Urine pH Ur Specific [place] Urine Protein Urine Glucose (UA) Urine Ketones Urine Blood Urine Nitrite Urine Bilirubin Urine Urobilinogen Ur Leukocyte Esterase Urine WBC (Auto) Urine RBC (Auto) Ur Epithelial Cells Urine Bacteria Hyaline Casts Urine Mucus Urine Yeast Blood Type Antibody Screen 01/24/18 01/24/18 01/24/18 02:02 08:10 08:10 WBC 12.2 H RBC 3.98 L Hgb 10.6 L D Hct 33.5 L D MCV 84.1 MCH 26.6 MCHC 31.7 L RDW 19.0 H Plt Count 152 D MPV 10.6 Neutrophils % 80.3 Lymphocytes % 16.4 D Monocytes % 2.7 L Eosinophils % 0.1 Basophils % 0.5 PT with INR INR PTT (Actin FS) Anticoagulation Therapy Puncture Site ABG pH ABG pCO2 at Pt Temp ABG pO2 at Pt Temp ABG HCO3 ABG O2 Sat (Measured) ABG O2 Content ABG Base Excess Sadiq Test Carboxyhemoglobin Methemoglobin O2 Delivery Device Oxygen Flow Rate Vent Mode Vent Rate Mechanical Rate Pressure Support Vent Sodium 167 H* Potassium 3.2 L D Chloride 137 H Carbon Dioxide 26 Anion Gap 4 L BUN 54 H Creatinine 1.4 H D Creat Clearance w eGFR 48.16 POC Glucometer [phone] Random Glucose 73 L D Hemoglobin A1c % Lactic Acid Calcium 7.2 L Magnesium 2.4 D Total Bilirubin 1.1 H D AST 23 ALT 18 Alkaline Phosphatase 60 Creatine Kinase Creatine Kinase Index CK-MB (CK-2) Troponin I Total Protein 5.3 L Albumin 1.9 L Urine Color Urine Appearance Urine pH Ur Specific [place] Urine Protein Urine Glucose (UA) Urine Ketones Urine Blood Urine Nitrite Urine Bilirubin Urine Urobilinogen Ur Leukocyte Esterase Urine WBC (Auto) Urine RBC (Auto) Ur Epithelial Cells Urine Bacteria Hyaline Casts Urine Mucus Urine Yeast Blood Type Antibody Screen 01/24/18 01/24/18 01/24/18 08:10 08:10 08:10 WBC RBC Hgb Hct MCV MCH MCHC RDW Plt Count MPV Neutrophils % Lymphocytes % Monocytes % Eosinophils % Basophils % PT with INR INR PTT (Actin FS) Anticoagulation Therapy Puncture Site ABG pH ABG pCO2 at Pt Temp ABG pO2 at Pt Temp ABG HCO3 ABG O2 Sat (Measured) ABG O2 Content ABG Base Excess Sadiq Test Carboxyhemoglobin Methemoglobin O2 Delivery Device Oxygen Flow Rate Vent Mode Vent Rate Mechanical Rate Pressure Support Vent Sodium Potassium Chloride Carbon Dioxide Anion Gap BUN Creatinine Creat Clearance w eGFR POC Glucometer Random Glucose Hemoglobin A1c % 6.6 H D Lactic Acid 1.2 Calcium Magnesium Total Bilirubin AST ALT Alkaline Phosphatase Creatine Kinase Creatine Kinase Index CK-MB (CK-2) Troponin I 0.04 D Total Protein Albumin Urine Color Urine Appearance Urine pH Ur Specific [place] Urine Protein Urine Glucose (UA) Urine Ketones Urine Blood Urine Nitrite Urine Bilirubin Urine Urobilinogen Ur Leukocyte Esterase Urine WBC (Auto) Urine RBC (Auto) Ur Epithelial Cells Urine Bacteria Hyaline Casts Urine Mucus Urine Yeast Blood Type Antibody Screen 01/24/18 08:10 WBC RBC Hgb Hct MCV MCH MCHC RDW Plt Count MPV Neutrophils % Lymphocytes % Monocytes % Eosinophils % Basophils % PT with INR INR PTT (Actin FS) Anticoagulation Therapy Puncture Site ABG pH ABG pCO2 at Pt Temp ABG pO2 at Pt Temp ABG HCO3 ABG O2 Sat (Measured) ABG O2 Content ABG Base Excess Sadiq Test Carboxyhemoglobin Methemoglobin O2 Delivery Device Oxygen Flow Rate Vent Mode Vent Rate Mechanical Rate Pressure Support Vent Sodium Potassium Chloride Carbon Dioxide Anion Gap BUN Creatinine Creat Clearance w eGFR POC Glucometer Random Glucose Hemoglobin A1c % Lactic Acid Calcium Magnesium Cancelled Total Bilirubin AST ALT Alkaline Phosphatase Creatine Kinase Creatine Kinase Index CK-MB (CK-2) Troponin I Total Protein Albumin Urine Color Urine Appearance Urine pH Ur Specific [place] Urine Protein Urine Glucose (UA) Urine Ketones Urine Blood Urine Nitrite Urine Bilirubin Urine Urobilinogen Ur Leukocyte Esterase Urine WBC (Auto) Urine RBC (Auto) Ur Epithelial Cells Urine Bacteria Hyaline Casts Urine Mucus Urine Yeast Blood Type Antibody Screen Active Medications Generic Name Dose Route Start Last Admin Trade Name Freq PRN Reason Stop Dose Admin Potassium Chloride 10 meq/ 105 mls @ 105 mls/hr 01/24/18 09:26 01/24/18 11:16 Sodium Chloride IVPB 01/24/18 12:14 105 mls/hr Q1H EJ Administration Piperacillin Sod/Tazobactam 50 mls @ 100 mls/hr 01/24/18 11:30 Sod 2.25 gm/ Dextrose IVPB Q6H-IV EJ Protocol Dextrose/Sodium Chloride 1,000 mls @ 100 mls/hr 01/24/18 11:30 D5-1/2ns - IV ASDIR EJ Sodium Chloride 1,000 mls @ 1,000 mls/hr 01/24/18 11:28 Normal Saline - IV 01/24/18 12:27 ASDIR STA Insulin Aspart 1 vial 01/23/18 19:30 01/24/18 11:21 Novolog Vial Sliding Scale - SQ Not Given Q6H EJ Protocol Pantoprazole Sodium 40 mg 01/24/18 11:45 Protonix - PO DAILY EJ ASSESSMENT/PLAN: 87M w/ hx of HTN, BPH obstructive uropathy indwelling catheter, T2DM, advanced Dementia, 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 CV #hypotension- likely 2/2 severe sepsis -MAPs of 53-72 -bolus 1L NS and then standing D5-1/2NS -continue to monitor BPs #HTN -home amlodipine and metoprolol held in setting of hypotension #Troponinemia -likely 2/2 demand ischemia in setting of severe sepsis and AMANDA -trops: 0.07--> 0.04 Resp #SOB- 2/2 sepsis possibly 2/2 PNA (questionable right sided infiltrate on CXR) -satting well on NRB. Wean off as tolerated. Metabolic #hypernatremia and hyperchloremia- likely 2/2 severe sepsis and inability to tolerate po fluids -Na of 167, up from 163, and Cl of 137, up from 131 while receiving normal saline @ 150 -fluids changed from NS to D5-1/2NS -f/u repeat BMP @6pm -RD eval -S&S debbie HOLDEN briefly spoke with son regarding wishes for peg tube. Son stated that this is a conversation that he has not really had with his family, and he will think about it. Renal #AMANDA- likely 2/2 severe sepsis and inability to tolerate po fluids. Improving -creatinine of 1.4, down from 2.2 -continue to trend -renal on board, Dr. Paul, appreciate recs. ID #severe sepsis- likely 2/2 UTI in setting of indwelling catheter vs. less likely PNA -mild leukocytosis of 12.2, up from 9.9. Tmax of 105 upon admission. -lactic acidosis resolved -ID on board, recs appreciated -zosyn dose adjusted for AMANDA -f/u Bcx and Ucx -f/u urine Ag studies -continue D5-1/2NS -urology consulted, Dr. Boswell, regarding need for indwelling catheter which is a big risk factor for these recurrent UTIs -per nurse, padron catheter changed in ED FEN/ppx -D5-1/2NS @ 100 -hypokalemia, hypernatremia, hyperchloremia. replete K, fluids changed to decrease Na and Cl -diet pending S&S and RD recs -protonix -heparin SQ Dispo -transfer to med/surg if BP improves with fluid resuscitation Case discussed with attending, Dr. Benson. -Parth Conrad MD PGY1 Visit type - Emergency Visit Emergency Visit: Yes ED Registration Date: 01/23/18 Care time: The patient presented to the Emergency Department on the above date and was hospitalized for further evaluation of their emergent condition. - New Patient This patient is new to me today: Yes Date on this admission: 01/24/18 - Critical Care Critical Care patient: Yes Total Critical Care Time (in minutes): 37 Critical Care Statement: The care of this patient involved high complexity decision making to prevent further life threatening deterioration of the patient 's condition and/or to evaluate & treat vital organ system(s) failure or risk of failure.
--- NOTE | 2018-01-24 12:17 | PN ---
Teaching Attending Note Name of Resident: Andres Berry ATTENDING PHYSICIAN STATEMENT I saw and evaluated the patient. I reviewed the resident's note and discussed the case with the resident. I agree with the resident's findings and plan as documented. 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 OBJECTIVE: Vital Signs Period Temp Pulse Resp BP Sys/Zamudio Pulse Ox Last 24 Hr 98.6 F-105 F 72-106 18-79 82-120/39-91 90-100 poor dentition cor-rrr lungs decreased bs at bases abd soft, nt padron ext no edema stage 2 sacral ulcer CBC, BMP 01/24/18 08:10 01/24/18 08:10 cultures pending ASSESSMENT AND PLAN: sepsis' uti-chronic padron dehydration pneumonia - probable aspiration urinary antigens zosyn adjusted for AMANDA d/w son at bedside f/u cultures Problem List - Problems (1) Sepsis Code(s): A41.9 - SEPSIS, UNSPECIFIED ORGANISM (2) UTI (urinary tract infection) Code(s): N39.0 - URINARY TRACT INFECTION, SITE NOT SPECIFIED Qualifiers: Urinary tract infection type: acute cystitis Hematuria presence: without hematuria Qualified Code(s): N30.00 - Acute cystitis without hematuria (3) Pneumonia Code(s): J18.9 - PNEUMONIA, UNSPECIFIED ORGANISM (4) AMANDA (acute kidney injury) Code(s): N17.9 - ACUTE KIDNEY FAILURE, UNSPECIFIED (5) Dehydration Code(s): E86.0 - DEHYDRATION
--- NOTE | 2018-01-24 12:45 | PN ---
Teaching Attending Note Name of Resident: Parth Conrad ATTENDING PHYSICIAN STATEMENT I saw and evaluated the patient. I reviewed the resident's note and discussed the case with the resident. I agree with the resident's findings and plan as documented. SUBJECTIVE: Patient seen and examined in the ICU. Drowsy but arousable. Denies CP or SOB. BP has been intermittently marginal, but appears to be responding to IVF boluses. Son at the bedside. Intake & Output 01/21/18 01/22/18 01/23/18 01/24/18 23:59 23:59 23:59 23:59 Intake Total 2525 Output Total 25 Balance 2500 Weight 90 lb 110 lb 6.4 oz Last Vital Signs Temp Pulse Resp BP Pulse Ox 98.6 F 74 79 H 106/42 95 01/24/18 10:09 01/24/18 10:09 01/24/18 10:09 01/24/18 10:09 01/24/18 09:00 Active Medications Piperacillin Sod/Tazobactam (Sod 2.25 gm/ Dextrose) 50 mls @ 100 mls/hr IVPB Q6H-IV EJ PRN Reason: Protocol Dextrose/Sodium Chloride (D5-1/2ns -) 1,000 mls @ 100 mls/hr IV ASDIR EJ Insulin Aspart (Novolog Vial Sliding Scale -) 1 vial SQ Q6H EJ PRN Reason: Protocol Last Admin: 01/24/18 11:21 Dose: Not Given Pantoprazole Sodium (Protonix -) 40 mg PO DAILY EJ GEN: Elderly, cachectic confused, weak appearing HEENT:Dry MM, (-) Icterus NECK: No JVD No Bruit CHEST: few scattered rhonchi CVS: S1S2, (-) murmur ABD: (+) BS, NT, ND EXT and Back: Stage 2-3 Sacral Decubitus, (-) edema BEAM RACKER: non-focal, confused, moving extremities Labs: Laboratory Results - last 24 hr 01/23/18 01/23/18 01/23/18 16:44 16:44 16:44 WBC 9.9 RBC 4.77 D Hgb 12.8 D Hct 40.5 D MCV 84.9 MCH 26.8 MCHC 31.5 L RDW 18.7 H Plt Count 194 MPV 11.1 D Neutrophils % 84.2 H D Lymphocytes % 9.4 D Monocytes % 5.9 Eosinophils % 0.1 D Basophils % 0.4 PT with INR 18.00 H INR 1.59 H PTT (Actin FS) 28.8 Anticoagulation Therapy Puncture Site ABG pH ABG pCO2 at Pt Temp ABG pO2 at Pt Temp ABG HCO3 ABG O2 Sat (Measured) ABG O2 Content ABG Base Excess Sadiq Test Carboxyhemoglobin Methemoglobin O2 Delivery Device Oxygen Flow Rate Vent Mode Vent Rate Mechanical Rate Pressure Support Vent Sodium 165 H* D Potassium 4.4 Chloride 128 H D Carbon Dioxide 26 Anion Gap 11 BUN 67 H D Creatinine 2.2 H D Creat Clearance w eGFR 28.59 POC Glucometer Random Glucose 306 H* D Hemoglobin A1c % Lactic Acid Calcium 8.6 D Magnesium Total Bilirubin 0.6 D AST 22 ALT 18 Alkaline Phosphatase 70 Creatine Kinase 190 Creatine Kinase Index 0.5 CK-MB (CK-2) < 1.000 Troponin I Total Protein 6.3 L D Albumin 2.3 L D Urine Color Urine Appearance Urine pH Ur Specific Powers[place] Urine Protein Urine Glucose (UA) Urine Ketones Urine Blood Urine Nitrite Urine Bilirubin Urine Urobilinogen Ur Leukocyte Esterase Urine WBC (Auto) Urine RBC (Auto) Ur Epithelial Cells Urine Bacteria Hyaline Casts Urine Mucus Urine Yeast Blood Type Antibody Screen 01/23/18 01/23/18 01/23/18 16:44 16:44 16:46 WBC RBC Hgb Hct MCV MCH MCHC RDW Plt Count MPV Neutrophils % Lymphocytes % Monocytes % Eosinophils % Basophils % PT with INR INR PTT (Actin FS) Anticoagulation Therapy Puncture Site ABG pH ABG pCO2 at Pt Temp ABG pO2 at Pt Temp ABG HCO3 ABG O2 Sat (Measured) ABG O2 Content ABG Base Excess Sadiq Test Carboxyhemoglobin Methemoglobin O2 Delivery Device Oxygen Flow Rate Vent Mode Vent Rate Mechanical Rate Pressure Support Vent Sodium Potassium Chloride Carbon Dioxide Anion Gap BUN Creatinine Creat Clearance w eGFR POC Glucometer Random Glucose Hemoglobin A1c % Lactic Acid 2.9 H* Calcium Magnesium Total Bilirubin AST ALT Alkaline Phosphatase Creatine Kinase Creatine Kinase Index CK-MB (CK-2) Cancelled Troponin I Total Protein Albumin Urine Color Urine Appearance Urine pH Ur Specific [place] Urine Protein Urine Glucose (UA) Urine Ketones Urine Blood Urine Nitrite Urine Bilirubin Urine Urobilinogen Ur Leukocyte Esterase Urine WBC (Auto) Urine RBC (Auto) Ur Epithelial Cells Urine Bacteria Hyaline Casts Urine Mucus Urine Yeast Blood Type B POSITIVE Antibody Screen Negative 01/23/18 01/23/18 01/23/18 17:14 19:02 19:25 WBC RBC Hgb Hct MCV MCH MCHC RDW Plt Count MPV Neutrophils % Lymphocytes % Monocytes % Eosinophils % Basophils % PT with INR INR PTT (Actin FS) Anticoagulation Therapy No Result Required. Puncture Site No Result Required. ABG pH 7.45 ABG pCO2 at Pt Temp 39.1 ABG pO2 at Pt Temp 72.0 ABG HCO3 26.6 H ABG O2 Sat (Measured) 94.7 ABG O2 Content 9.5 L* ABG Base Excess 2.9 H Sadiq Test Positive Carboxyhemoglobin 2.2 H Methemoglobin 1.1 O2 Delivery Device No Result Required. Oxygen Flow Rate No Result Required. Vent Mode No Result Required. Vent Rate No Result Required. Mechanical Rate No Result Required. Pressure Support Vent No Result Required. Sodium Potassium Chloride Carbon Dioxide Anion Gap BUN Creatinine Creat Clearance w eGFR POC Glucometer Random Glucose Hemoglobin A1c % Lactic Acid 4.3 H* Calcium Magnesium Total Bilirubin AST ALT Alkaline Phosphatase Creatine Kinase Creatine Kinase Index CK-MB (CK-2) Troponin I Total Protein Albumin Urine Color Liane Urine Appearance Turbid Urine pH 5.0 Ur Specific [place] 1.024 Urine Protein 2+ H Urine Glucose (UA) 2+ H Urine Ketones Negative Urine Blood 3+ H Urine Nitrite Negative Urine Bilirubin Negative Urine Urobilinogen 2.0 Ur Leukocyte Esterase 3+ H Urine WBC (Auto) 557 Urine RBC (Auto) 50 Ur Epithelial Cells Rare Urine Bacteria Many Hyaline Casts 8 Urine Mucus Rare Urine Yeast Few Blood Type Antibody Screen 01/23/18 01/23/18 01/23/18 19:29 20:40 23:22 WBC RBC Hgb Hct MCV MCH MCHC RDW Plt Count MPV Neutrophils % Lymphocytes % Monocytes % Eosinophils % Basophils % PT with INR INR PTT (Actin FS) Anticoagulation Therapy Puncture Site ABG pH ABG pCO2 at Pt Temp ABG pO2 at Pt Temp ABG HCO3 ABG O2 Sat (Measured) ABG O2 Content ABG Base Excess Sadiq Test Carboxyhemoglobin Methemoglobin O2 Delivery Device Oxygen Flow Rate Vent Mode Vent Rate Mechanical Rate Pressure Support Vent Sodium 163 H* Potassium 4.3 Chloride 131 H Carbon Dioxide 26 Anion Gap 6 L BUN 64 H Creatinine 2.2 H Creat Clearance w eGFR POC Glucometer [phone] Random Glucose 306 H* Hemoglobin A1c % Lactic Acid Calcium 7.4 L Magnesium Total Bilirubin AST ALT Alkaline Phosphatase Creatine Kinase Creatine Kinase Index CK-MB (CK-2) Troponin I 0.07 H D Total Protein Albumin Urine Color Urine Appearance Urine pH Ur Specific [place] Urine Protein Urine Glucose (UA) Urine Ketones Urine Blood Urine Nitrite Urine Bilirubin Urine Urobilinogen Ur Leukocyte Esterase Urine WBC (Auto) Urine RBC (Auto) Ur Epithelial Cells Urine Bacteria Hyaline Casts Urine Mucus Urine Yeast Blood Type Antibody Screen 01/24/18 01/24/18 01/24/18 02:02 08:10 08:10 WBC 12.2 H RBC 3.98 L Hgb 10.6 L D Hct 33.5 L D MCV 84.1 MCH 26.6 MCHC 31.7 L RDW 19.0 H Plt Count 152 D MPV 10.6 Neutrophils % 80.3 Lymphocytes % 16.4 D Monocytes % 2.7 L Eosinophils % 0.1 Basophils % 0.5 PT with INR INR PTT (Actin FS) Anticoagulation Therapy Puncture Site ABG pH ABG pCO2 at Pt Temp ABG pO2 at Pt Temp ABG HCO3 ABG O2 Sat (Measured) ABG O2 Content ABG Base Excess Sadiq Test Carboxyhemoglobin Methemoglobin O2 Delivery Device Oxygen Flow Rate Vent Mode Vent Rate Mechanical Rate Pressure Support Vent Sodium 167 H* Potassium 3.2 L D Chloride 137 H Carbon Dioxide 26 Anion Gap 4 L BUN 54 H Creatinine 1.4 H D Creat Clearance w eGFR 48.16 POC Glucometer [phone] Random Glucose 73 L D Hemoglobin A1c % Lactic Acid Calcium 7.2 L Magnesium 2.4 D Total Bilirubin 1.1 H D AST 23 ALT 18 Alkaline Phosphatase 60 Creatine Kinase Creatine Kinase Index CK-MB (CK-2) Troponin I Total Protein 5.3 L Albumin 1.9 L Urine Color Urine Appearance Urine pH Ur Specific [place] Urine Protein Urine Glucose (UA) Urine Ketones Urine Blood Urine Nitrite Urine Bilirubin Urine Urobilinogen Ur Leukocyte Esterase Urine WBC (Auto) Urine RBC (Auto) Ur Epithelial Cells Urine Bacteria Hyaline Casts Urine Mucus Urine Yeast Blood Type Antibody Screen 01/24/18 01/24/18 01/24/18 08:10 08:10 08:10 WBC RBC Hgb Hct MCV MCH MCHC RDW Plt Count MPV Neutrophils % Lymphocytes % Monocytes % Eosinophils % Basophils % PT with INR INR PTT (Actin FS) Anticoagulation Therapy Puncture Site ABG pH ABG pCO2 at Pt Temp ABG pO2 at Pt Temp ABG HCO3 ABG O2 Sat (Measured) ABG O2 Content ABG Base Excess Sadiq Test Carboxyhemoglobin Methemoglobin O2 Delivery Device Oxygen Flow Rate Vent Mode Vent Rate Mechanical Rate Pressure Support Vent Sodium Potassium Chloride Carbon Dioxide Anion Gap BUN Creatinine Creat Clearance w eGFR POC Glucometer Random Glucose Hemoglobin A1c % 6.6 H D Lactic Acid 1.2 Calcium Magnesium Total Bilirubin AST ALT Alkaline Phosphatase Creatine Kinase Creatine Kinase Index CK-MB (CK-2) Troponin I 0.04 D Total Protein Albumin Urine Color Urine Appearance Urine pH Ur Specific [place] Urine Protein Urine Glucose (UA) Urine Ketones Urine Blood Urine Nitrite Urine Bilirubin Urine Urobilinogen Ur Leukocyte Esterase Urine WBC (Auto) Urine RBC (Auto) Ur Epithelial Cells Urine Bacteria Hyaline Casts Urine Mucus Urine Yeast Blood Type Antibody Screen 01/24/18 08:10 WBC RBC Hgb Hct MCV MCH MCHC RDW Plt Count MPV Neutrophils % Lymphocytes % Monocytes % Eosinophils % Basophils % PT with INR INR PTT (Actin FS) Anticoagulation Therapy Puncture Site ABG pH ABG pCO2 at Pt Temp ABG pO2 at Pt Temp ABG HCO3 ABG O2 Sat (Measured) ABG O2 Content ABG Base Excess Sadiq Test Carboxyhemoglobin Methemoglobin O2 Delivery Device Oxygen Flow Rate Vent Mode Vent Rate Mechanical Rate Pressure Support Vent Sodium Potassium Chloride Carbon Dioxide Anion Gap BUN Creatinine Creat Clearance w eGFR POC Glucometer Random Glucose Hemoglobin A1c % Lactic Acid Calcium Magnesium Cancelled Total Bilirubin AST ALT Alkaline Phosphatase Creatine Kinase Creatine Kinase Index CK-MB (CK-2) Troponin I Total Protein Albumin Urine Color Urine Appearance Urine pH Ur Specific [place] Urine Protein Urine Glucose (UA) Urine Ketones Urine Blood Urine Nitrite Urine Bilirubin Urine Urobilinogen Ur Leukocyte Esterase Urine WBC (Auto) Urine RBC (Auto) Ur Epithelial Cells Urine Bacteria Hyaline Casts Urine Mucus Urine Yeast Blood Type Antibody Screen Problem List - Problems (1) Sepsis Assessment/Plan: Code(s): A41.9 - SEPSIS, UNSPECIFIED ORGANISM (2) Hypernatremia Assessment/Plan: Code(s): E87.0 - HYPEROSMOLALITY AND HYPERNATREMIA (3) UTI (urinary tract infection) Assessment/Plan: Code(s): N39.0 - URINARY TRACT INFECTION, SITE NOT SPECIFIED Qualifiers: Urinary tract infection type: acute cystitis Hematuria presence: without hematuria Qualified Code(s): N30.00 - Acute cystitis without hematuria (4) Acute metabolic encephalopathy Assessment/Plan: Code(s): G93.41 - METABOLIC ENCEPHALOPATHY (5) CAD (coronary artery disease) Assessment/Plan: Code(s): I25.10 - ATHSCL HEART DISEASE OF [place] CORONARY ARTERY W/O ANG PCTRS Qualifiers: Coronary Disease-Associated Artery/Lesion type: bypass graft [place] vs. transplanted heart: [place] heart Associated angina: without angina Qualified Code(s): I25.810 - Atherosclerosis of coronary artery bypass graft(s) without angina pectoris (6) Hemiparesis Assessment/Plan: Code(s): G81.90 - HEMIPLEGIA, UNSPECIFIED AFFECTING UNSPECIFIED SIDE Qualifiers: Cerebrovascular disease type: nontraumatic intracerebral hemorrhage (7) HTN (hypertension) Assessment/Plan: Code(s): I10 - ESSENTIAL (PRIMARY) HYPERTENSION Qualifiers: Hypertension type: essential hypertension Qualified Code(s): I10 - Essential (primary) hypertension (8) Acute kidney injury superimposed on CKD Assessment/Plan: Code(s): N17.9 - ACUTE KIDNEY FAILURE, UNSPECIFIED; N18.9 - CHRONIC KIDNEY DISEASE, UNSPECIFIED (9) Decubital ulcer Assessment/Plan: Code(s): L89.90 - PRESSURE ULCER OF UNSPECIFIED SITE, UNSPECIFIED STAGE PLAN: Change IVF / resuscitation O2 as needed Follow cultures ABX per ID Strict I&O Aspiration precautions May need swallow evaluation with possible need for PEG (has been unable to take in free water) DNR/DNI Dr Benson Critical care time spent in reviewing chart, evaluating patient and formulating plan - 36 minutes.
[2018-01-24] MEDS ORDERED: PIPERACILLIN/TAZOBACTAM 2.25 GM VIAL IVPB ONE ×2 (12:47→21:09)
[2018-01-24] MEDS ORDERED: DEXTROSE 5%-WATER - 50 ML IVPB ONE ×2 (12:47→21:09)
[2018-01-24] MEDS: PIPERACILLIN/TAZOB 2.25 GM 2.25 GM in DEXTROSE 5%-WATER - 50 ML IVPB SCH ×3 (13:07→21:12)
[2018-01-24] MEDS: PANTOPRAZOLE SODIUM 40 MG VIAL IVPUSH SCH (13:45)
--- NOTE | 2018-01-24 13:50 | CON.ID ---
Consult Consult Specialty:: Infectious Disease Referred by:: Dr. Jesica Leach Reason for Consultation:: Sepsis - History of Present Illness Chief Complaint: Lethargy, SOB History of Present Illness: The patient is an 87 yo m w/ PMH HTN, BPH w/ obstructive uropathy & chronic indwelling Padron, DM and dementia who was brought to the ED by family from home due to increased lethargy and SOB. The patient had a recent admission to [facility] ( in october) for UTI. He was treated with Vantin and Diflucan. Urine cultures at that time grew yeast like organisms. His previous admission was complicated by urinary retention necessitating repeated straight caths and resulted in Padron catheter insertion. Patient was discharged to a rehab facility with Padron in place. Since this admission, the patient was also admitted to [facility] for similar urinary complaints. In the ED, the patient was found to have a fever to 105, a tachycardia to 10 and a respiratory rate of 43. 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: CVA (hemorrhagic, 2016) Cardio/Vascular: Yes: CAD, HTN, Hyperlipdemia Pulmonary: Yes: Pneumonia Renal/: Yes: BPH Musculoskeletal: Yes: Hemiparesis (right) Endocrine: Yes: Diabetes Mellitus - Past Surgical History Past Surgical History: Yes: CABG (2004) - Alcohol/Substance Use Hx Alcohol Use: No History of Substance Use: reports: None - Smoking History Smoking history: Unknown if ever smoked Have you smoked in the past 12 months: No - Social History ADL: Support Services History of Recent Travel: No Home Medications - Allergies Allergies/Adverse Reactions: Allergies Allergy/AdvReac Type Severity Reaction Status Date / Time No Known Allergies Allergy Verified 11/05/17 12:45 - Home Medications Home Medications: Ambulatory Orders Aspirin [ASA -] 81 mg PO DAILY 11/05/17 Finasteride [Proscar -] 5 mg PO DAILY 11/05/17 Metformin HCl 500 mg PO BID 11/05/17 Simvastatin 40 mg PO HS 11/05/17 Tamsulosin HCl 0.4 mg PO DAILY 11/05/17 Amlodipine Besylate 10 mg PO DAILY 01/23/18 Metoprolol Tartrate 25 mg PO DAILY 01/23/18 Review of Systems Unable to obtain ROS, reason: Dementia; nonverbal Physical Exam Vital Signs: Vital Signs Temperature 98.6 F 01/24/18 10:09 Pulse Rate 74 01/24/18 10:09 Respiratory Rate 79 H 01/24/18 10:09 Blood Pressure 106/42 01/24/18 10:09 O2 Sat by Pulse Oximetry (%) 95 01/24/18 09:00 Constitutional: Yes: No Distress, Calm HENT: Yes: Atraumatic, Normocephalic. No: Thrush Cardiovascular: Yes: Regular Rate and Rhythm, S1, S2. No: JVD, Gallop, Murmur, Rub Respiratory: Yes: Regular, Other (crackles at the bases) Gastrointestinal: Yes: Normal Bowel Sounds, Soft Edema: No Integumentary: Yes: Pressure Ulcer (stage II sacral ulcer clean wihtout signs of infection) Neurological: Yes: Alert Labs: CBC, BMP 01/24/18 08:10 01/24/18 08:10 Imaging - Results Chest X-ray: Report Reviewed (Right base infiltrates which has since improved; there is a questionable opacity on the right at the cardiophrenic angle.), Image Reviewed Cat Scan: Report Reviewed Assessment/Plan The patient is an 87 yo m w/ PMH HTN, DM, dementia and BPH w/ obstructive uropathy & chronic indwelling padron admitted for the treatment of lethargy and SOB. #Sepsis 2/2 UTI vs pulmonary source -CXR shows questionable opacity at cardiophenic angle on the right -home Padron replaced on admission -UA indicative of infection -f/u Bcx and Ucx -s/p Vancomycin and zosyn in the ED -will continue with Zosyn (renally dosed) 2.25 q6h -will order Vancomycin level in the AM and dose accordingly -urine for PNA antigens
--- NOTE | 2018-01-24 14:03 | CONSULT ---
Consult Consult Specialty:: Nephrology Reason for Consultation:: Hypernatremia - History of Present Illness Chief Complaint: altered mental status and decreased PO intake History of Present Illness: Pt is an 87 year old male with pmhx of HTN, hypernatremia, HLD, DM, CAD, CABG and CVA with right sided weakness who presents to the ER with altered mental status and with weakness. He was found to be hypernatremic and I was called to evaluate him. He was seen by me for hypernatremia in the past. He was discharged from the hospital to rehab a few months ago. He was subsequently hospitalized for and infection at [facility]. He was eventually send back home. He has 24 hour home care. He is on thickened fluids. He has not been eating or drinking much. Pt is not able to give much history. His son is at bedside who assisted with history. Pt was found to be hypotensive and tachycardic. He was given fluids and he responded. 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: CVA (hemorrhagic, 2016) Cardio/Vascular: Yes: CAD, HTN, Hyperlipdemia Pulmonary: Yes: Pneumonia Renal/: Yes: BPH, Other (dehydration, hypernatremia) Musculoskeletal: Yes: Hemiparesis (right) Endocrine: Yes: Diabetes Mellitus - Past Surgical History Past Surgical History: Yes: CABG (2004) - Alcohol/Substance Use Hx Alcohol Use: No History of Substance Use: reports: None - Smoking History Smoking history: Unknown if ever smoked Have you smoked in the past 12 months: No - Social History ADL: Support Services History of Recent Travel: No Home Medications - Allergies Allergies/Adverse Reactions: Allergies Allergy/AdvReac Type Severity Reaction Status Date / Time No Known Allergies Allergy Verified 11/05/17 12:45 - Home Medications Home Medications: Ambulatory Orders Aspirin [ASA -] 81 mg PO DAILY 11/05/17 Finasteride [Proscar -] 5 mg PO DAILY 11/05/17 Metformin HCl 500 mg PO BID 11/05/17 Simvastatin 40 mg PO HS 11/05/17 Tamsulosin HCl 0.4 mg PO DAILY 11/05/17 Amlodipine Besylate 10 mg PO DAILY 01/23/18 Metoprolol Tartrate 25 mg PO DAILY 01/23/18 Family Disease History - Family Disease History Family History: Unable to Obtain Review of Systems Unable to obtain ROS, reason: pt not answer Findings/Remarks: Pt is not fully answering questions, he nods and says "no" Physical Exam Vital Signs: Vital Signs Temperature 98.6 F 01/24/18 10:09 Pulse Rate 74 01/24/18 10:09 Respiratory Rate 79 H 01/24/18 10:09 Blood Pressure 106/42 01/24/18 10:09 O2 Sat by Pulse Oximetry (%) 95 01/24/18 09:00 Constitutional: Yes: Calm Eyes: Yes: Conjunctiva Clear Cardiovascular: Yes: S1, S2 Respiratory: Yes: On Venti-Mask Gastrointestinal: Yes: Soft Renal/: Yes: [place] Present Musculoskeletal: Yes: Muscle Weakness Edema: No Neurological: Yes: Confusion, Other (awake) Psychiatric: Yes: Other (awake) Labs: CBC, BMP 01/24/18 08:10 01/24/18 08:10 Laboratory Tests 11/09/17 11/10/17 11/14/17 06:00 06:00 06:00 WBC Hgb Sodium 155 H 155 H 150 H Potassium Chloride Carbon Dioxide Anion Gap BUN Creatinine Urine Protein Urine Blood 11/15/17 11/16/17 01/23/18 06:30 06:00 16:44 WBC 9.9 Hgb 12.8 D Sodium 146 H 142 Potassium Chloride Carbon Dioxide Anion Gap BUN Creatinine Urine Protein Urine Blood 01/23/18 01/23/18 01/23/18 16:44 19:25 19:29 WBC Hgb Sodium 165 H* D 163 H* Potassium Chloride Carbon Dioxide Anion Gap BUN Creatinine Urine Protein 2+ H Urine Blood 3+ H 01/24/18 08:10 WBC Hgb Sodium 167 H* Potassium 3.2 L D Chloride 137 H Carbon Dioxide 26 Anion Gap 4 L BUN 54 H Creatinine 1.4 H D Urine Protein Urine Blood Imaging - Results Chest X-ray: Report Reviewed Cat Scan: Report Reviewed Assessment/Plan Current Medications Generic Name Dose Route Start Last Admin Trade Name Freq PRN Reason Stop Dose Admin Heparin Sodium (Porcine) 5,000 unit 01/24/18 22:00 Heparin - SQ BID EJ Piperacillin Sod/Tazobactam 50 mls @ 100 mls/hr 01/24/18 11:30 01/24/18 13:07 Sod 2.25 gm/ Dextrose IVPB 100 mls/hr Q6H-IV EJ Administration Protocol Dextrose/Sodium Chloride 1,000 mls @ 100 mls/hr 01/24/18 11:30 01/24/18 13:03 D5-1/2ns - IV 100 mls/hr ASDIR EJ Administration Insulin Aspart 1 vial 01/23/18 19:30 01/24/18 13:45 Novolog Vial Sliding Scale - SQ Not Given Q6H EJ Protocol Pantoprazole Sodium 40 mg 01/24/18 13:15 01/24/18 13:45 Protonix Iv IVPUSH 40 mg DAILY EJ Administration IMPRESSION 1. hypernatremia 2. DM 3. change in mental status 4. decreased PO intake 5. malnutrition 6. hx hydronephrosis 7. hypotension requiring multiple fluid boluses 8. hemiparesis 9. AMANDA improving 10. severe dehydration Plan - total free water deficit is about 4.8 liters, will need about 1.6 liters to get him to 157 - avoid a change of greater than 10 meq in 24 hours - cont to monitor sodium levels - discussed with ICU mynor - fluids changed from ns to d51/2, consider changing to d51/3rd and monitoring sodium - once pressure stabilizes switch to d5w - replace potassium and monitor levels - plan discussed with pts son at length - pt did not have urology eval for hydro, consider repeat renal ultrasound - monitor urine output - swallow eval - pt does not like the thickened water - this will likely continue to recur if pt does not get adequate intake of fluids and calories - renal function is improving, amanda likely from severe pre-renal disease - will follow Dr Abraham
[2018-01-24] MEDS ORDERED: DEXTROSE 5%-1/3 NS - 500 ML IV SCH (14:15)
[2018-01-24 17:45] LABS: ANION GAP 6 (8-16); BLOOD UREA NITROGEN 46 mg/dL (7-18); CHLORIDE 138 mmol/L (98-107); CO2 25 mmol/L (21-32); CREATININE 1.3 mg/dL (0.7-1.3); GLUCOSE,RANDOM 103 mg/dL (74-106); POTASSIUM 3.7 mmol/L (3.5-5.1)
[2018-01-24 17:56] LABS: SODIUM 169 mmol/L (136-145)
[2018-01-24] MEDS ORDERED: DEXTROSE 5%-WATER - 1,000 ML IV SCH ×2 (18:30)
[2018-01-24] MEDS: DEXTROSE 5%-WATER - 1,000 ML IV SCH (18:52)
--- NOTE | 2018-01-24 19:03 | CONSULT ---
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: CVA (hemorrhagic, 2016) Cardiovascular: Yes: CAD, HTN, Hyperlipdemia Pulmonary: Yes: Pneumonia Renal/: Yes: BPH Musculoskeletal: Yes: Hemiparesis (right) Endocrine: Yes: Diabetes Mellitus - Past Surgical History Past Surgical History: Yes: CABG (2004) - Smoking History Smoking history: Unknown if ever smoked Have you smoked in the past 12 months: No - Alcohol/Substance Use Hx Alcohol Use: No History of Substance Use: reports: None - Social History ADL: Support Services History of Recent Travel: No History - Admission Reason For Visit: SEPSIS/HYPERNATREMIA/AMANDA Speech Evaluation - Communication Primary Language: ESTONIAN Communication: Yes: Simple Responses (No speech observed but has reliable yea / no) - Speech Production Apraxia: No Able to Make Needs Known: Yes: Severely Impaired Intelligibility: Yes: Severely Impaired - Speech Characteristics Voice Phonatory-based Quality: Yes: Loss of Voice Speech Clarity: < 100% Articulation: Yes: Precise Voice, Other Observations: Yes: Mouth Breathing Voice Comment: reduced airway protection, no vocalizations - Language/Auditory Comprehension Follows: Yes: 1 Stage Simple Commands Observation: Able to respond to yes/no queries: Yes, Yes/No Confusion: No, Comprehends Conversational Speech: Yes, Benefits from Slow Speech: No, Benefits from Repetiton: No, Benefits from Increased Volume of Speech: Yes - Language/Verbal Expression Aphasia: Yes: Nonfluent Able to Respond to Simple Queries: Yes: WNL Able to Communicate Wants and Needs: Yes: Severely Impaired Functional Communication Status: Yes: Severely Impaired Aware of Errors: Yes Attempts to Correct Errors: No Use of Gestures: Yes Written Expression: Not examined Oral Expression: N/A Reading Comprehension: Not examined Calculations: Not examined Attention: Yes: Intact - Memory/Perception Visual Neglect: Yes: Right - Swallow Evaluation/Bedside Assessment Current Nutritional Intake: NPO (at home was consuming pureed and thicken liquids) Oral Secretions: Yes: Dryness Tracheostomy Present: No Patient on Ventilator: No Dentition: Yes: Edentulous, Missing Teeth (top and bottom jaw) Facial Symmetry at Rest: Symmetrical Facial Symmetry on Retraction: Symmetrical Facial Movement: Controlled Sensation: Normal Facial Comment: WFL for speech and swallowing purposes Jaw Position: Open at Rest Against Resistance Opening: Normal Against Resistance Closing: Normal Smile: Normal Lips, Comment: WFL for swallowing purposes Lingual Movement: Reduced Tip Depression, Reduced Tip Elevation, Reduced Protrusion Lingual Speed of Movement: Reduced Lingual Movement Strgth Against Opposition: Reduced Lingual Movement Characteristics: Jerky, Spasms Lingual Comment: reduced but WFL for swallowing purposes Soft Palate Description: Normal Color Hard Palate Description: Normal Color Gag Reflex: Strong Bite Reflex: Present Velopharyngeal Movement: Normal Laryngeal Elevation: WFL Laryngeal Movement: Able to Palpate Needs Assistance: Yes Rate of Intake: WFL Bolus Size: WFL Labial Seal: WFL A-P Transit: WFL Pocketing: None Timing of Swallow: Delayed (mild 2-3 seconds) Odynophagia: Oral (secondary to dental status), Pharyngeal (mild delay) Coughing/Throat Clear: No Change in Voice: No Other Findings/Remarks: 87 yo old male seen at bedside for swallow eval to r/o dysphagia. Family member present for this session. Pt presents as non-verbal, A&Ox1 cooperative. MHX includes CAD, CABG, HTN, HLD, CVA with residual right side weakness. Admitted for AMS and reduced po intake. Current diet NPO daughter reports at home pt was consuming puree and thicken liquids. He was given honey thicken liquids but pt has been refusing lately. Pt given po trials of puree only with total assistance reveals good acceptance , adequate bolus control and transport. Pharyngeal swallows are slightly delayed 2-3 seconds average with no cough or changes in respiration. Pt given po trials of thicken liquids (honey and nectar thicken) with total assistance via cup and straw reveals good acceptance, adequate bolus control and transport. Pharyngeal swallows are slightly delayed 2-3 seconds average with no cough or changes in respiration. Recommendations - Speech Evaluation, Impression/Plan Impression: Pt presents with severe oral prep phase and mild pharyngeal phase dysphagia with no s/s of aspiration when consuming purees and nectar thicken liquids via cup and spoon. Halfway Goals: tolerate the least restrictive diet without s/s of aspiration. Short Term Goals: tolerate puree and nectar thicken liquids without s/s of aspiration. - Dysphagia Impressions/Plan Swallowing Skills: Impaired (mild pharyngeal phase dysphagia) Dysphagia Impressions: Mild Impairment (pharyngeal phase.), Moderate Impairment (oral prep phase), Risk of Aspiration, Suspect Aspiration *Silent aspiration: cannot be R/O at bedside Dysphagia Treatment Plan: Trial Feedings (puree and nectar thicken), Safe Rate, Elevate HOB during feed, OOB for 1 h. after meals Dysphagia Evaluation Summary: Trial puree and nectar thicken liquids (no straws ) as tolerated Observe standard aspiration precautions. Monitor nutritional intake and pulmonary status. Results given verbally to charge rn Jean and to pcp via chart. systems development manager to follow up. - Recommendations Diet Consistency: Dysphagia Pureed Medication Administration: Crushed with applesauce Liquids: Thin Liquids Supplement: Ensure (chilled via cup), Ensure Pudding (consider)
[2018-01-24] MEDS ORDERED: ACETAMINOPHEN 1000 MG/100 ML VIAL (NON FORMULARY) IVPB ONE (20:30)
[2018-01-24] MEDS: HEPARIN NA (PORCINE) 5,000 UNITS/ML 1ML VIAL SQ SCH (21:12)
[2018-01-24 23:04] LABS: ANION GAP 7 (8-16); BLOOD UREA NITROGEN 40 mg/dL (7-18); CHLORIDE 135 mmol/L (98-107); CO2 24 mmol/L (21-32); CREATININE 1.2 mg/dL (0.7-1.3); GLUCOSE,RANDOM 131 mg/dL (74-106); POTASSIUM 3.4 mmol/L (3.5-5.1)
[2018-01-24 23:06] LABS: CALCIUM 6.9 mg/dL (8.5-10.1); SODIUM 166 mmol/L (136-145)
[2018-01-25] MEDS ORDERED: DEXTROSE 5%-WATER - 50 ML IVPB ONE ×4 (01:15→21:06)
[2018-01-25] MEDS ORDERED: PIPERACILLIN/TAZOBACTAM 2.25 GM VIAL IVPB ONE ×4 (01:15→21:06)
[2018-01-25] MEDS: INSULIN SLIDING SCALE (NOVOLOG) 1 VIAL SQ SCH ×4 (01:40→21:19)
[2018-01-25] MEDS ORDERED: ACETAMINOPHEN 1000 MG/100 ML VIAL (NON FORMULARY) IVPB ONE ×2 (02:45→15:50)
[2018-01-25] MEDS: PIPERACILLIN/TAZOB 2.25 GM 2.25 GM in DEXTROSE 5%-WATER - 50 ML IVPB SCH ×4 (04:27→21:13)
[2018-01-25] MEDS ORDERED: VANCOMYCIN 1 GM PREMIX - 1 GM/200 ML BAG IVPB ONE (06:15)
[2018-01-25 06:28] LABS: BASO % 0.3 % (0-2.0); EOS % 0.1 % (0-4.5); HEMATOCRIT 29.6 % (35.4-49); HEMOGLOBIN 9.4 GM/dL (11.7-16.9); LYMPH % 10.1 % (8-40); MCH 26.9 pg (25.7-33.7); MCHC 31.8 g/dl (32.0-35.9); MEAN CELL VOLUME 84.5 fl (80-96); MEAN PLT VOLUME 10.7 fl (7.5-11.1); MONO % 2.5 % (3.8-10.2); PLATELET COUNT 118 K/MM3 (134-434); RDW 18.1 % (11.9-15.9); WHITE BLOOD COUNT 11.1 K/mm3 (4.0-10.0)
--- NOTE | 2018-01-25 06:41 | PN ---
Progress Note (short form) - Note Progress Note: Overnight: MAP continue to be low 50s-60s. Increased O2 demand, switched from NC to NRB. Tm 103.6. Renal sono b/l hydro S: No complaints. Feels better. Worsening RLL infiltrate on CXR BCx growing CoaNS x2. Vanco level low, given 1g today. O: Vital Signs Period Temp Pulse Resp BP Sys/Zamudio Pulse Ox Last 24 Hr 97.8 F-103.6 F 67-96 17-79 83-120/36-91 90-95 GEN: Awake, alert, on NRB, appears frail and tired HEENT: PERRLA, EOMi, no JVD CV: S1, S2, RRR LUNG: CTABL ABD: Soft, NT, ND MSK: No edema, no erythema, +2 pulses NEURO: CN 2-12 grossly intact, weak throughout Active Medications Heparin Sodium (Porcine) (Heparin -) 5,000 unit SQ BID [facility] Last Admin: 01/24/18 21:12 Dose: 5,000 unit Piperacillin Sod/Tazobactam (Sod 2.25 gm/ Dextrose) 50 mls @ 100 mls/hr IVPB Q6H-IV EJ PRN Reason: Protocol Last Admin: 01/25/18 04:27 Dose: 100 mls/hr Dextrose (D5w -) 1,000 mls @ 100 mls/hr IV ASDIR [facility] Last Admin: 01/24/18 18:52 Dose: 100 mls/hr Vancomycin HCl (Vancomycin 1 Gm Premix -) 1 gm in 200 mls @ 133.333 mls/hr IVPB ONCE ONE Stop: 01/25/18 07:44 Last Admin: 01/25/18 06:15 Dose: 133.333 mls/hr Insulin Aspart (Novolog Vial Sliding Scale -) 1 vial SQ Q6H EJ PRN Reason: Protocol Last Admin: 01/25/18 06:30 Dose: 4 units Pantoprazole Sodium (Protonix Iv) 40 mg IVPUSH DAILY [facility] Last Admin: 01/24/18 13:45 Dose: 40 mg A/P: 87yo M with obstructive uropathy w/ indwelling padron, advanced dementia was brought to ER with respiratory distress and confusion, found to be in septic shock. Family refused central line. DNR/DNI # Acute metabolic encephalopathy -- Likely multifactorial from septic shock and hyperNa. CT scan neg. # Septic Shock -- Likely from UTI. Also developing RLL pna on CXR, ?aspiration. Bcx growing CoaNS x2. ?Real. Will obtain new set of Bcx. BP still tenuous. Family refuses central line. Vanc/Zosyn. ID. # Acute Hypoxemic RF -- Likely from sepsis. Worsening, increasing O2 requirements. DNI. # HyperNa -- FWD is 4.1L. Fluids changed to D5w. Do not correct >1-2meq/hr. Frequent BMP. May need eval for pEG since patient has not been taking in free water po at [place]. # AMANDA -- Likely prerenal. W/ possible post-renal component since b/l hydro seen on renal sono. Urology to get renal scan when patient is stabke. # Malnutrition -- Low albumin, switched to dysphagia puree diet, encourage po intake. Consider PEG in near future for nutrition # NIDDM -- A1c 6.6. Continue ISS and BGM ACHS # R Hemiparesis -- From old CVA, not active issue # HTN -- Home BP meds held due to low BP # FEN/Ppx -- D5@100cc/hr, dysphagia puree, HSQ bid # Dispo -- Continue ICU monitoring Jase Herron MD - [id number] Resident
[2018-01-25 06:51] LABS: CHLORIDE 133 mmol/L (98-107)
[2018-01-25 06:58] LABS: ALBUMIN 1.5 g/dl (3.4-5.0); ALK PHOS 64 U/L (45-117); ANION GAP 7 (8-16); BILIRUBIN,TOTAL 0.7 mg/dL (0.2-1.0); BLOOD UREA NITROGEN 36 mg/dL (7-18); CO2 23 mmol/L (21-32); CREATININE 1.2 mg/dL (0.7-1.3); GLUCOSE,RANDOM 171 mg/dL (74-106); MAGNESIUM 2.1 mg/dL (1.8-2.4); PHOSPHOROUS 1.9 mg/dL (2.5-4.9); SGOT/AST 23 U/L (15-37); SGPT/ALT 17 U/L (12-78); TOT PROT 4.6 g/dl (6.4-8.2)
[2018-01-25 07:01] LABS: CALCIUM 6.6 mg/dL (8.5-10.1); SODIUM 163 mmol/L (136-145)
[2018-01-25] MEDS: KCL 10 MEQ IVPB 10 MEQ/100 ML INFUS.BAG IVPB SCH ×3 (08:35→10:58)
[2018-01-25] MEDS: HEPARIN NA (PORCINE) 5,000 UNITS/ML 1ML VIAL SQ SCH ×2 (09:52→21:13)
[2018-01-25] MEDS: PANTOPRAZOLE SODIUM 40 MG VIAL IVPUSH SCH (09:52)
[2018-01-25] MEDS ORDERED: VANCOMYCIN 1,000 MG in DEXTROSE 5%-WATER - 250 ML IVPB ONE (10:00)
--- NOTE | 2018-01-25 10:10 | PN ---
Progress Note, AUTOMATION ARCHITECT - Note Progress Note: Pt known to me from October 2017 w/u. MBS without aspiration with Dys ground and thin liquid/Ensure Plus recommended. Per covering sp path interview with family, pt was on puree and nectar thick liquid at home. Per EMR: Overnight: MAP continue to be low 50s-60s. Increased O2 demand, switched from NC to NRB. Tm 103.6. Renal sono b/l hydro S: No complaints. Feels better. Worsening RLL infiltrate on CXR BCx growing CoaNS x2. Vanco level low, given 1g today. Diet ordered but not given, per nursing. On NRB. Trial of nectar thick this am by nursing with responsive cough. Puree needed to be suctioned intraorally. On NRB with 100% oxygen. o2 saturation 87-88% Delayed swallow with trial of applesauce. Risk of aspiration presently wiith impaired pulmonary status. Aphasic. Communicates with some gesture. REC: NPO
--- NOTE | 2018-01-25 10:26 | PN ---
Progress Note, Physician Chief Complaint: Unable to obtain - Current Medication List Current Medications: Active Medications Heparin Sodium (Porcine) (Heparin -) 5,000 unit SQ BID [facility] Last Admin: 01/25/18 09:52 Dose: 5,000 unit Piperacillin Sod/Tazobactam (Sod 2.25 gm/ Dextrose) 50 mls @ 100 mls/hr IVPB Q6H-IV EJ PRN Reason: Protocol Last Admin: 01/25/18 09:51 Dose: 100 mls/hr Dextrose (D5w -) 1,000 mls @ 100 mls/hr IV ASDIR [facility] Last Admin: 01/24/18 18:52 Dose: 100 mls/hr Potassium Chloride (Potassium Chloride 10 Meq Premix Ivpb -) 10 meq in 100 mls @ 100 mls/hr IVPB Q60M [facility] Stop: 01/25/18 11:14 Last Admin: 01/25/18 09:52 Dose: 100 mls/hr Insulin Aspart (Novolog Vial Sliding Scale -) 1 vial SQ Q6H EJ PRN Reason: Protocol Last Admin: 01/25/18 06:30 Dose: 4 units Pantoprazole Sodium (Protonix Iv) 40 mg IVPUSH DAILY [facility] Last Admin: 01/25/18 09:52 Dose: 40 mg - Objective Vital Signs: Vital Signs Temperature 36.6 C 01/25/18 06:00 Pulse Rate 72 01/25/18 08:00 Respiratory Rate 18 01/25/18 08:00 Blood Pressure 92/44 01/25/18 08:00 O2 Sat by Pulse Oximetry (%) 90 L 01/24/18 20:43 Constitutional: Yes: No Distress, Calm, Thin Cardiovascular: Yes: Regular Rate and Rhythm. No: Gallop, Murmur, Rub Respiratory: Yes: Regular, CTA Bilaterally, On Nasal O2. No: Rales, Rhonchi, Wheezes Gastrointestinal: Yes: Normal Bowel Sounds, Soft. No: Distention, Tenderness Extremities: Yes: WNL Edema: No Labs: CBC, BMP 01/25/18 05:45 01/25/18 05:45 INR, PTT INR 1.59 (0.82-1.09) H 01/23/18 16:44 Problem List - Problems (1) UTI (urinary tract infection) Code(s): N39.0 - URINARY TRACT INFECTION, SITE NOT SPECIFIED Qualifiers: Urinary tract infection type: acute cystitis Hematuria presence: without hematuria Qualified Code(s): N30.00 - Acute cystitis without hematuria (2) Pneumonia Code(s): J18.9 - PNEUMONIA, UNSPECIFIED ORGANISM (3) AMANDA (acute kidney injury) Code(s): N17.9 - ACUTE KIDNEY FAILURE, UNSPECIFIED (4) Dehydration Code(s): E86.0 - DEHYDRATION (5) Hypernatremia Code(s): E87.0 - HYPEROSMOLALITY AND HYPERNATREMIA (6) Sepsis Code(s): A41.9 - SEPSIS, UNSPECIFIED ORGANISM (7) BPH (benign prostatic hyperplasia) Code(s): N40.0 - BENIGN PROSTATIC HYPERPLASIA WITHOUT LOWER URINRY TRACT SYMP (8) CAD (coronary artery disease) Code(s): I25.10 - ATHSCL HEART DISEASE OF [place] CORONARY ARTERY W/O ANG PCTRS Qualifiers: Coronary Disease-Associated Artery/Lesion type: bypass graft [place] vs. transplanted heart: [place] heart Associated angina: without angina Qualified Code(s): I25.810 - Atherosclerosis of coronary artery bypass graft(s) without angina pectoris (9) DM (diabetes mellitus) Code(s): E11.9 - TYPE 2 DIABETES MELLITUS WITHOUT COMPLICATIONS Qualifiers: Diabetes mellitus type: type 2 Diabetes mellitus senior living insulin use: without intermodal truck driver use (10) Acute metabolic encephalopathy Code(s): G93.41 - METABOLIC ENCEPHALOPATHY (11) HTN (hypertension) Code(s): I10 - ESSENTIAL (PRIMARY) HYPERTENSION Qualifiers: Hypertension type: essential hypertension Qualified Code(s): I10 - Essential (primary) hypertension (12) Severe protein-calorie malnutrition Code(s): E43 - UNSPECIFIED SEVERE PROTEIN-CALORIE MALNUTRITION Assessment/Plan (1) UTI (urinary tract infection) Assessment/Plan: -urinalysis positive for UTI -urine cultures growing gram negative rods -case d/w ID -continue zosyn Code(s): N39.0 - URINARY TRACT INFECTION, SITE NOT SPECIFIED Qualifiers: Urinary tract infection type: acute cystitis Hematuria presence: without hematuria Qualified Code(s): N30.00 - Acute cystitis without hematuria (2) Pneumonia Assessment/Plan: -continue zosyn per ID -dosing vancomycin by level Code(s): J18.9 - PNEUMONIA, UNSPECIFIED ORGANISM (3) AMANDA (acute kidney injury) Assessment/Plan: -stable Code(s): N17.9 - ACUTE KIDNEY FAILURE, UNSPECIFIED (4) Dehydration Assessment/Plan: -continue IVF Code(s): E86.0 - DEHYDRATION (5) Hypernatremia Assessment/Plan: -slightly improved -now on D5W per nephrology Code(s): E87.0 - HYPEROSMOLALITY AND HYPERNATREMIA (6) Sepsis Assessment/Plan: -one set blood cultures growing coag negative staph -second set also positive, organism not specified yet -urine culture positive as above -continue Abx and IVF -obtain ECHO since coag neg staph -repeat blood cultures Code(s): A41.9 - SEPSIS, UNSPECIFIED ORGANISM (7) BPH (benign prostatic hyperplasia) Assessment/Plan: -urology following Code(s): N40.0 - BENIGN PROSTATIC HYPERPLASIA WITHOUT LOWER URINRY TRACT SYMP (8) CAD (coronary artery disease) Assessment/Plan: -quiescent Code(s): I25.10 - ATHSCL HEART DISEASE OF [place] CORONARY ARTERY W/O ANG PCTRS Qualifiers: Coronary Disease-Associated Artery/Lesion type: bypass graft [place] vs. transplanted heart: [place] heart Associated angina: without angina Qualified Code(s): I25.810 - Atherosclerosis of coronary artery bypass graft(s) without angina pectoris (9) DM (diabetes mellitus) Assessment/Plan: -currently npo -on D5W Code(s): E11.9 - TYPE 2 DIABETES MELLITUS WITHOUT COMPLICATIONS Qualifiers: Diabetes mellitus type: type 2 Diabetes mellitus senior living insulin use: without intermodal truck driver use (10) Acute metabolic encephalopathy Assessment/Plan: -resolved Code(s): G93.41 - METABOLIC ENCEPHALOPATHY (11) HTN (hypertension) Assessment/Plan: -hypotensive -continue IVF Code(s): I10 - ESSENTIAL (PRIMARY) HYPERTENSION Qualifiers: Hypertension type: essential hypertension Qualified Code(s): I10 - Essential (primary) hypertension (12) Severe protein calorie malnutrition -? if aspirating -speech therapy swallowing -family thinking about GOC -PEG tube vs comfort measures, pending patient's response to treatment and recovery 32 minutes spent in critical care time with this patient
--- NOTE | 2018-01-25 10:59 | CON.GU ---
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: CVA (hemorrhagic, 2016) Cardio/Vascular: Yes: CAD, HTN, Hyperlipdemia Pulmonary: Yes: Pneumonia Renal/: Yes: BPH Musculoskeletal: Yes: Hemiparesis (right) Endocrine: Yes: Diabetes Mellitus - Past Surgical History Past Surgical History: Yes: CABG (2004) - Alcohol/Substance Use Hx Alcohol Use: No History of Substance Use: reports: None - Smoking History Smoking history: Unknown if ever smoked Have you smoked in the past 12 months: No - Social History ADL: Support Services History of Recent Travel: No Home Medications - Allergies Allergies/Adverse Reactions: Allergies Allergy/AdvReac Type Severity Reaction Status Date / Time No Known Allergies Allergy Verified 11/05/17 12:45 - Home Medications Home Medications: Ambulatory Orders Aspirin [ASA -] 81 mg PO DAILY 11/05/17 Finasteride [Proscar -] 5 mg PO DAILY 11/05/17 Metformin HCl 500 mg PO BID 11/05/17 Simvastatin 40 mg PO HS 11/05/17 Tamsulosin HCl 0.4 mg PO DAILY 11/05/17 Amlodipine Besylate 10 mg PO DAILY 01/23/18 Metoprolol Tartrate 25 mg PO DAILY 01/23/18 Physical Exam- Vital Signs: Vital Signs Temperature 98.2 F 01/25/18 10:00 Pulse Rate 83 01/25/18 10:00 Respiratory Rate 28 H 01/25/18 10:00 Blood Pressure 100/46 01/25/18 10:00 O2 Sat by Pulse Oximetry (%) 90 L 01/24/18 20:43 Labs: CBC, BMP 01/25/18 05:45 01/25/18 05:45 Imaging - Results Ultrasound: Report Reviewed Problem List - Problems (1) UTI (urinary tract infection) Assessment/Plan: UTI w initial fever 105 Now afebrile Cont current abx as per ID [place] draining clear urine Code(s): N39.0 - URINARY TRACT INFECTION, SITE NOT SPECIFIED Qualifiers: Urinary tract infection type: acute cystitis Hematuria presence: without hematuria Qualified Code(s): N30.00 - Acute cystitis without hematuria (2) Hydronephrosis Assessment/Plan: Left > right hydro When stabilizes would order renal scan w lasix to R/O functional obstruction Cr currently 1.2 Code(s): N13.30 - UNSPECIFIED HYDRONEPHROSIS
--- NOTE | 2018-01-25 12:33 | PN ---
Teaching Attending Note Name of Resident: Jase Herron ATTENDING PHYSICIAN STATEMENT I saw and evaluated the patient. I reviewed the resident's note and discussed the case with the resident. I agree with the resident's findings and plan as documented. SUBJECTIVE: Patient seen and examined in the ICU. Awake and interactive on 100% NRBM. Confused. Intake & Output 01/22/18 01/23/18 01/24/18 01/25/18 23:59 23:59 23:59 23:59 Intake Total 2525 2460 1500 Output Total 25 1200 Balance 2500 2460 300 Weight 90 lb 110 lb 6.4 oz 111 lb 3.2 oz Last Vital Signs Temp Pulse Resp BP Pulse Ox 98.2 F 83 28 H 100/46 94 L 01/25/18 10:00 01/25/18 10:00 01/25/18 10:00 01/25/18 10:00 01/25/18 09:00 Active Medications Heparin Sodium (Porcine) (Heparin -) 5,000 unit SQ BID [facility] Last Admin: 01/25/18 09:52 Dose: 5,000 unit Piperacillin Sod/Tazobactam (Sod 2.25 gm/ Dextrose) 50 mls @ 100 mls/hr IVPB Q6H-IV EJ PRN Reason: Protocol Last Admin: 01/25/18 09:51 Dose: 100 mls/hr Dextrose (D5w -) 1,000 mls @ 100 mls/hr IV ASDIR [facility] Last Admin: 01/24/18 18:52 Dose: 100 mls/hr Insulin Aspart (Novolog Vial Sliding Scale -) 1 vial SQ Q6H EJ PRN Reason: Protocol Last Admin: 01/25/18 06:30 Dose: 4 units Pantoprazole Sodium (Protonix Iv) 40 mg IVPUSH DAILY [facility] Last Admin: 01/25/18 09:52 Dose: 40 mg GEN: Elderly, cachectic confused, weak appearing HEENT:Dry MM, (-) Icterus NECK: No JVD No Bruit CHEST: few scattered rhonchi CVS: S1S2, (-) murmur ABD: (+) BS, NT, ND EXT and Back: Stage 2-3 Sacral Decubitus, (-) edema LOAD BLOCKER: non-focal, confused, moving extremities Labs: Laboratory Results - last 24 hr 01/24/18 01/24/18 01/24/18 13:23 16:00 16:00 WBC RBC Hgb Hct MCV MCH MCHC RDW Plt Count MPV Neutrophils % Lymphocytes % Monocytes % Eosinophils % Basophils % Sodium 169 H* Potassium 3.7 Chloride 138 H Carbon Dioxide 25 Anion Gap 6 L BUN 46 H Creatinine 1.3 Creat Clearance w eGFR POC Glucometer 103.79665 Random Glucose 103 D Calcium 7.0 L Phosphorus Magnesium Total Bilirubin AST ALT Alkaline Phosphatase Total Protein Albumin Random Vancomycin 6.659 01/24/18 01/24/18 01/25/18 17:08 22:15 01:28 WBC RBC Hgb Hct MCV MCH MCHC RDW Plt Count MPV Neutrophils % Lymphocytes % Monocytes % Eosinophils % Basophils % Sodium 166 H* Potassium 3.4 L Chloride 135 H Carbon Dioxide 24 Anion Gap 7 L BUN 40 H Creatinine 1.2 Creat Clearance w eGFR POC Glucometer 164.93735 210.54354 Random Glucose 131 H D Calcium 6.9 L* Phosphorus Magnesium Total Bilirubin AST ALT Alkaline Phosphatase Total Protein Albumin Random Vancomycin 01/25/18 01/25/18 01/25/18 05:45 05:45 05:45 WBC 11.1 H RBC 3.50 L Hgb 9.4 L D Hct 29.6 L MCV 84.5 MCH 26.9 MCHC 31.8 L RDW 18.1 H Plt Count 118 L D MPV 10.7 Neutrophils % 87.0 H Lymphocytes % 10.1 D Monocytes % 2.5 L Eosinophils % 0.1 Basophils % 0.3 Sodium 163 H* Potassium 3.0 L Chloride 133 H Carbon Dioxide 23 Anion Gap 7 L BUN 36 H Creatinine 1.2 Creat Clearance w eGFR 57.54 POC Glucometer Random Glucose 171 H D Calcium 6.6 L* Phosphorus 1.9 L Magnesium 2.1 Total Bilirubin 0.7 D AST 23 ALT 17 Alkaline Phosphatase 64 Total Protein 4.6 L Albumin 1.5 L D Random Vancomycin 4.976 01/25/18 06:01 WBC RBC Hgb Hct MCV MCH MCHC RDW Plt Count MPV Neutrophils % Lymphocytes % Monocytes % Eosinophils % Basophils % Sodium Potassium Chloride Carbon Dioxide Anion Gap BUN Creatinine Creat Clearance w eGFR POC Glucometer 203.22248 Random Glucose Calcium Phosphorus Magnesium Total Bilirubin AST ALT Alkaline Phosphatase Total Protein Albumin Random Vancomycin Problem List - Problems (1) Sepsis Assessment/Plan: Code(s): A41.9 - SEPSIS, UNSPECIFIED ORGANISM (2) Hypernatremia Assessment/Plan: Code(s): E87.0 - HYPEROSMOLALITY AND HYPERNATREMIA (3) UTI (urinary tract infection) Assessment/Plan: Code(s): N39.0 - URINARY TRACT INFECTION, SITE NOT SPECIFIED Qualifiers: Urinary tract infection type: acute cystitis Hematuria presence: without hematuria Qualified Code(s): N30.00 - Acute cystitis without hematuria (4) Acute metabolic encephalopathy Assessment/Plan: Code(s): G93.41 - METABOLIC ENCEPHALOPATHY (5) CAD (coronary artery disease) Assessment/Plan: Code(s): I25.10 - ATHSCL HEART DISEASE OF [place] CORONARY ARTERY W/O ANG PCTRS Qualifiers: Coronary Disease-Associated Artery/Lesion type: bypass graft [place] vs. transplanted heart: [place] heart Associated angina: without angina Qualified Code(s): I25.810 - Atherosclerosis of coronary artery bypass graft(s) without angina pectoris (6) Hemiparesis Assessment/Plan: Code(s): G81.90 - HEMIPLEGIA, UNSPECIFIED AFFECTING UNSPECIFIED SIDE Qualifiers: Cerebrovascular disease type: nontraumatic intracerebral hemorrhage (7) HTN (hypertension) Assessment/Plan: Code(s): I10 - ESSENTIAL (PRIMARY) HYPERTENSION Qualifiers: Hypertension type: essential hypertension Qualified Code(s): I10 - Essential (primary) hypertension (8) Acute kidney injury superimposed on CKD Assessment/Plan: Code(s): N17.9 - ACUTE KIDNEY FAILURE, UNSPECIFIED; N18.9 - CHRONIC KIDNEY DISEASE, UNSPECIFIED (9) Decubital ulcer Assessment/Plan: Code(s): L89.90 - PRESSURE ULCER OF UNSPECIFIED SITE, UNSPECIFIED STAGE PLAN: IVF resuscitation O2 as needed ABX per ID Strict I&O Aspiration precautions (?) PEG (depending on family GOC) DNR/DNI Dr Benson Critical care time spent in reviewing chart, evaluating patient and formulating plan - 36 minutes.
--- NOTE | 2018-01-25 13:57 | PN ---
Teaching Attending Note Name of Resident: Andres Berry ATTENDING PHYSICIAN STATEMENT I saw and evaluated the patient. I reviewed the resident's note and discussed the case with the resident. I agree with the resident's findings and plan as documented. SUBJECTIVE: more alert today OBJECTIVE: Vital Signs Period Temp Pulse Resp BP Sys/Zamudio Pulse Ox Last 24 Hr 97.8 F-103.6 F 67-96 17-28 83-100/36-74 90-94 cor-rrr lungs decreased bs at bases abd soft,nt ext no edema CBC, BMP 01/25/18 05:45 01/25/18 05:45 Microbiology 01/23/18 19:25 Urine - Urine - Catheterized Urine Culture - Preliminary Lactose Fermenting Neg Bacilli 01/24/18 17:00 Urine For Antigen Detection Legionella Antigen - Final 01/24/18 17:00 Urine For Antigen Detection Streptococcus pneumoniae Antigen (M - Final 01/23/18 16:44 Blood - Peripheral Venous Blood Culture - Preliminary Staphylococcus Coagulase Neg 01/23/18 16:44 Blood - Peripheral Venous Blood Culture - Preliminary Pending Organism ASSESSMENT AND PLAN: continue zosyn for pneumonia and UTI gram positive bacteremia- continue vancomycin, repeat blood cultures, check echo follow vanco levels daily until creatinine stabilizes Problem List - Problems (1) Sepsis Code(s): A41.9 - SEPSIS, UNSPECIFIED ORGANISM (2) UTI (urinary tract infection) Code(s): N39.0 - URINARY TRACT INFECTION, SITE NOT SPECIFIED Qualifiers: Urinary tract infection type: acute cystitis Hematuria presence: without hematuria Qualified Code(s): N30.00 - Acute cystitis without hematuria (3) Pneumonia Code(s): J18.9 - PNEUMONIA, UNSPECIFIED ORGANISM (4) AMANDA (acute kidney injury) Code(s): N17.9 - ACUTE KIDNEY FAILURE, UNSPECIFIED (5) Dehydration Code(s): E86.0 - DEHYDRATION
--- NOTE | 2018-01-25 14:07 | PN ---
Progress Note, Physician History of Present Illness: Patient seen and examined at bedside. He is more alert today. BCX and UCX both positive. - Current Medication List Current Medications: Active Medications Heparin Sodium (Porcine) (Heparin -) 5,000 unit SQ BID [facility] Last Admin: 01/25/18 09:52 Dose: 5,000 unit Piperacillin Sod/Tazobactam (Sod 2.25 gm/ Dextrose) 50 mls @ 100 mls/hr IVPB Q6H-IV EJ PRN Reason: Protocol Last Admin: 01/25/18 09:51 Dose: 100 mls/hr Dextrose (D5w -) 1,000 mls @ 100 mls/hr IV ASDIR EJ Last Admin: 01/24/18 18:52 Dose: 100 mls/hr Insulin Aspart (Novolog Vial Sliding Scale -) 1 vial SQ Q6H EJ PRN Reason: Protocol Last Admin: 01/25/18 06:30 Dose: 4 units Pantoprazole Sodium (Protonix Iv) 40 mg IVPUSH DAILY [facility] Last Admin: 01/25/18 09:52 Dose: 40 mg - Objective Vital Signs: Vital Signs Temperature 98.2 F 01/25/18 10:00 Pulse Rate 94 H 01/25/18 12:00 Respiratory Rate 25 H 01/25/18 12:00 Blood Pressure 98/47 01/25/18 12:00 O2 Sat by Pulse Oximetry (%) 94 L 01/25/18 09:00 Constitutional: Yes: Well Nourished, No Distress, Calm Cardiovascular: Yes: Regular Rate and Rhythm, S1, S2. No: JVD, Gallop, Murmur, Rub Respiratory: Yes: Regular, CTA Bilaterally Gastrointestinal: Yes: Normal Bowel Sounds, Soft Labs: CBC, BMP 01/25/18 05:45 01/25/18 05:45 INR, PTT INR 1.59 (0.82-1.09) H 01/23/18 16:44 Assessment/Plan The patient is an 87 yo m w/ PMH HTN, DM, dementia and BPH w/ obstructive uropathy & chronic indwelling padron admitted for the treatment of lethargy and SOB. #Sepsis 2/2 UTI vs pulmonary source -CXR shows questionable opacity at cardiophenic angle on the right -Bcx growing gram negative cocci in clusters in 2 bottles -UCx growing lactose fermenting GNR -will continue with Zosyn (renally dosed) 2.25 q6h -s/p vancomycin 1g this AM -Repeat Bcx today -will order Vancomycin level in the AM and dose accordingly -urine for PNA antigens -will obtain echo
--- NOTE | 2018-01-25 15:51 | PN ---
Progress Note, Physician History of Present Illness: Pt seen and examined at beside. He is more awake today. - Current Medication List Current Medications: Active Medications Heparin Sodium (Porcine) (Heparin -) 5,000 unit SQ BID EJ Last Admin: 01/25/18 09:52 Dose: 5,000 unit Piperacillin Sod/Tazobactam (Sod 2.25 gm/ Dextrose) 50 mls @ 100 mls/hr IVPB Q6H-IV EJ PRN Reason: Protocol Last Admin: 01/25/18 15:06 Dose: 100 mls/hr Dextrose (D5w -) 1,000 mls @ 100 mls/hr IV ASDIR EJ Last Admin: 01/24/18 18:52 Dose: 100 mls/hr Insulin Aspart (Novolog Vial Sliding Scale -) 1 vial SQ Q6H EJ PRN Reason: Protocol Last Admin: 01/25/18 15:00 Dose: Not Given Pantoprazole Sodium (Protonix Iv) 40 mg IVPUSH DAILY [facility] Last Admin: 01/25/18 09:52 Dose: 40 mg - Objective Vital Signs: Vital Signs Temperature 101.5 F H 01/25/18 14:00 Pulse Rate 96 H 01/25/18 14:00 Respiratory Rate 104 H 01/25/18 14:00 Blood Pressure 98/47 01/25/18 12:00 O2 Sat by Pulse Oximetry (%) 94 L 01/25/18 09:00 Constitutional: Yes: Calm Eyes: Yes: Conjunctiva Clear HENT: Yes: Atraumatic Neck: Yes: Supple Cardiovascular: Yes: S1, S2 Respiratory: Yes: CTA Bilaterally Gastrointestinal: Yes: Soft Genitourinary: Yes: [place] Present Musculoskeletal: Yes: Muscle Weakness Edema: No Neurological: Yes: Confusion Labs: CBC, BMP 01/25/18 05:45 INR, PTT INR 1.59 (0.82-1.09) H 01/23/18 16:44 Assessment/Plan Current Medications Generic Name Dose Route Start Last Admin Trade Name Freq PRN Reason Stop Dose Admin Heparin Sodium (Porcine) 5,000 unit 01/24/18 22:00 01/25/18 09:52 Heparin - SQ 5,000 unit BID EJ Administration Piperacillin Sod/Tazobactam 50 mls @ 100 mls/hr 01/24/18 11:30 01/25/18 15:06 Sod 2.25 gm/ Dextrose IVPB 100 mls/hr Q6H-IV EJ Administration Protocol Dextrose 1,000 mls @ 100 mls/hr 01/24/18 18:34 01/24/18 18:52 D5w - IV 100 mls/hr ASDIR EJ Administration Insulin Aspart 1 vial 01/23/18 19:30 01/25/18 15:00 Novolog Vial Sliding Scale - SQ Not Given Q6H EJ Protocol Pantoprazole Sodium 40 mg 01/24/18 13:15 01/25/18 09:52 Protonix Iv IVPUSH 40 mg DAILY EJ Administration IMPRESSION 1. hypernatremia 2. DM 3. change in mental status 4. decreased PO intake 5. malnutrition 6. hx hydronephrosis 7. hypotension requiring multiple fluid boluses 8. hemiparesis 9. AMANDA improving 10. severe dehydration 11. hypokalemia Plan - cont with d5w with close monitoring of sodium - sodium is improving - follow up echo - replace potassium - check mag level - pt is npo for aspiration precautions - hypernatremia likely from decreased free water intake - will follow Dr Abraham
[2018-01-25 16:01] LABS: ANION GAP 5 (8-16); BLOOD UREA NITROGEN 32 mg/dL (7-18); CALCIUM 7.1 mg/dL (8.5-10.1); CHLORIDE 129 mmol/L (98-107); CO2 26 mmol/L (21-32); GLUCOSE,RANDOM 87 mg/dL (74-106); POTASSIUM 3.5 mmol/L (3.5-5.1); SODIUM 160 mmol/L (136-145)
[2018-01-25 16:02] LABS: CREATININE 1.2 mg/dL (0.7-1.3)
[2018-01-25] MEDS: DEXTROSE 5%-WATER - 1,000 ML IV SCH (21:13)
[2018-01-26] MEDS: PIPERACILLIN/TAZOB 2.25 GM 2.25 GM in DEXTROSE 5%-WATER - 50 ML IVPB SCH ×4 (02:24→21:12)
[2018-01-26] MEDS: INSULIN SLIDING SCALE (NOVOLOG) 1 VIAL SQ SCH ×4 (02:25→21:14)
[2018-01-26 06:56] LABS: BLOOD UREA NITROGEN 25 mg/dL (7-18); GLUCOSE,RANDOM 136 mg/dL (74-106); SODIUM 156 mmol/L (136-145)
[2018-01-26 06:57] LABS: ANION GAP 7 (8-16); CHLORIDE 126 mmol/L (98-107); CO2 23 mmol/L (21-32)
[2018-01-26 07:26] LABS: HEMATOCRIT 33.6 % (35.4-49); MCH 27.2 pg (25.7-33.7); MCHC 32.8 g/dl (32.0-35.9); MEAN CELL VOLUME 83.1 fl (80-96); RBC 4.04 M/mm3 (4.00-5.60); RDW 18.3 % (11.9-15.9); WHITE BLOOD COUNT 12.5 K/mm3 (4.0-10.0)
[2018-01-26 07:27] LABS: MEAN PLT VOLUME 11.3 fl (7.5-11.1); PLATELET COUNT 139 K/MM3 (134-434)
[2018-01-26 07:36] LABS: POTASSIUM 2.7 mmol/L (3.5-5.1)
--- NOTE | 2018-01-26 08:09 | PN ---
Progress Note (short form) - Note Progress Note: Overnight: MAPs improved to 60s+ Tm 100.9 Old UCx ESBL, new is negative. New BCx pending S: No complaints. on NRB satting 92. Appears frail, tired Son to come at 4pm to discuss GOC O: Vital Signs Period Temp Pulse Resp BP Sys/Zamudio Pulse Ox Last 24 Hr 97.8 F-103.6 F 67-96 17-79 83-120/36-91 90-95 GEN: Awake, alert, on NRB, weak appearing HEENT: PERRLA, EOMi, no JVD CV: S1, S2, RRR LUNG: CTABL anterior ABD: Soft, NT, ND MSK: No edema, no erythema, +2 pulses NEURO: CN 2-12 grossly intact, weak throughout Active Medications Heparin Sodium (Porcine) (Heparin -) 5,000 unit SQ BID [facility] Last Admin: 01/26/18 09:44 Dose: 5,000 unit Piperacillin Sod/Tazobactam (Sod 2.25 gm/ Dextrose) 50 mls @ 100 mls/hr IVPB Q6H-IV EJ PRN Reason: Protocol Last Admin: 01/26/18 09:44 Dose: 100 mls/hr Potassium Chloride (Potassium Chloride 10 Meq Premix Ivpb -) 10 meq in 100 mls @ 100 mls/hr IVPB Q60M [facility] Stop: 01/26/18 14:44 Potassium Chloride 10 meq/ (Dextrose) 1,005 mls @ 100 mls/hr IVPB Q10H EJ Insulin Aspart (Novolog Vial Sliding Scale -) 1 vial SQ Q6H EJ PRN Reason: Protocol Last Admin: 01/26/18 06:32 Dose: 2 units Pantoprazole Sodium (Protonix Iv) 40 mg IVPUSH DAILY [facility] Last Admin: 01/26/18 09:44 Dose: 40 mg A/P: 87yo M with obstructive uropathy w/ indwelling padron, advanced dementia was brought to ER with respiratory distress and confusion, found to be in septic shock. Family refused central line. DNR/DNI # Acute metabolic encephalopathy -- Likely multifactorial from septic shock and hyperNa. CT scan neg. # Malnutrition -- In October, he passed s/s eval. Unsure of events since October which caused patient to not eat well at home. Now NPO due to aspiration risk. Options for long-term nutrition include PEG, but there is still risk of aspiration. ? Quality of life. If patient does not get adequate nutrition, he will continue to decompensate. Need to speak to surrogates about residential goals of care # Sepsis -- Improving. Likely from UTI. Old urine cx grew ESBL. This was probably taken from the patient's indwelling padron. Since replacement, new UCx are negative. Bcx growing CoaNS x2. ?Real. New Bcx pending. Family refuses central line. Vanc/ Zosyn. ID. # Acute Hypoxemic RF -- Likely from sepsis and malnutrition, weak respiratory effort. DNR/DNI. Decompensating. Now on 100% ventimask. # HyperNa -- Improving on D5q. 2.9L FWD tiarra. Do not correct >1-2meq/hr. Frequent BMP. NPO due to aspiration risk. # Hypokalemia -- Not enough PO intake. Replaced. Also putting K+ in fluids # NIDDM -- A1c 6.6. 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 Discuss malnutrition, decompensation during hospitalizastion. Ultimately need to find out what are family's wishes for correction care. Son is set to come 4pm. Jase Herron MD - [id number] Resident
[2018-01-26] MEDS ORDERED: PIPERACILLIN/TAZOBACTAM 2.25 GM VIAL IVPB ONE ×3 (08:14→21:05)
[2018-01-26] MEDS: KCL 10 MEQ IVPB 10 MEQ/100 ML INFUS.BAG IVPB SCH ×5 (08:22→15:38)
[2018-01-26] MEDS: DEXTROSE 5%-WATER - 1,000 ML IV SCH (08:22)
--- NOTE | 2018-01-26 09:20 | PN ---
Teaching Attending Note Name of Resident: Andres Berry ATTENDING PHYSICIAN STATEMENT I saw and evaluated the patient. I reviewed the resident's note and discussed the case with the resident. I agree with the resident's findings and plan as documented. SUBJECTIVE: back on NRB mask alert NAD OBJECTIVE: Vital Signs Period Temp Pulse Resp BP Sys/Zamudio Pulse Ox Last 24 Hr 97 F-101.5 F 82-112 18-30 85-130/40-98 90-91 cor-rrr lulngs decreased bs at bases abd soft, nt padron ext no edema CBC, BMP 01/26/18 05:25 01/26/18 05:25 Microbiology 01/23/18 16:44 Blood - Peripheral Venous Blood Culture - Preliminary Staphylococcus Coagulase Neg 01/23/18 19:25 Urine - Urine - Catheterized Urine Culture - Preliminary Lactose Fermenting Neg Bacilli 01/24/18 17:00 Urine For Antigen Detection Legionella Antigen - Final 01/24/18 17:00 Urine For Antigen Detection Streptococcus pneumoniae Antigen (M - Final 01/23/18 16:44 Blood - Peripheral Venous Blood Culture - Preliminary Staphylococcus Coagulase Neg Current Medications Heparin Sodium (Porcine) (Heparin -) 5,000 unit SQ BID [facility] Last Admin: 01/25/18 21:13 Dose: 5,000 unit Piperacillin Sod/Tazobactam (Sod 2.25 gm/ Dextrose) 50 mls @ 100 mls/hr IVPB Q6H-IV EJ PRN Reason: Protocol Last Admin: 01/26/18 02:24 Dose: 100 mls/hr Dextrose (D5w -) 1,000 mls @ 100 mls/hr IV ASDIR [facility] Last Admin: 01/26/18 08:22 Dose: 100 mls/hr Potassium Chloride (Potassium Chloride 10 Meq Premix Ivpb -) 10 meq in 100 mls @ 100 mls/hr IVPB Q60M [facility] Stop: 01/26/18 11:59 Last Admin: 01/26/18 08:22 Dose: 100 mls/hr Vancomycin HCl 1,000 mg/ (Dextrose) 250 mls @ 166.667 mls/hr IVPB ONCE ONE PRN Reason: Protocol Stop: 01/26/18 11:29 Insulin Aspart (Novolog Vial Sliding Scale -) 1 vial SQ Q6H EJ PRN Reason: Protocol Last Admin: 01/26/18 06:32 Dose: 2 units Pantoprazole Sodium (Protonix Iv) 40 mg IVPUSH DAILY EJ Last Admin: 01/25/18 09:52 Dose: 40 mg ASSESSMENT AND PLAN: gram positive bacteremia- repeat blood cultures echo, f/u blood cultures UTI- chronic padron- continue zosyn ?aspiration pneumonia- continue zosyn goals of care being discussed with the family Problem List - Problems (1) Sepsis Code(s): A41.9 - SEPSIS, UNSPECIFIED ORGANISM (2) UTI (urinary tract infection) Code(s): N39.0 - URINARY TRACT INFECTION, SITE NOT SPECIFIED Qualifiers: Urinary tract infection type: acute cystitis Hematuria presence: without hematuria Qualified Code(s): N30.00 - Acute cystitis without hematuria (3) Pneumonia Code(s): J18.9 - PNEUMONIA, UNSPECIFIED ORGANISM (4) AMANDA (acute kidney injury) Code(s): N17.9 - ACUTE KIDNEY FAILURE, UNSPECIFIED (5) Dehydration Code(s): E86.0 - DEHYDRATION
[2018-01-26] MEDS: PANTOPRAZOLE SODIUM 40 MG VIAL IVPUSH SCH (09:44)
[2018-01-26] MEDS: HEPARIN NA (PORCINE) 5,000 UNITS/ML 1ML VIAL SQ SCH ×2 (09:44→21:13)
[2018-01-26] MEDS ORDERED: VANCOMYCIN 1,000 MG in DEXTROSE 5%-WATER - 250 ML IVPB ONE (10:00)
--- NOTE | 2018-01-26 10:39 | PN ---
Progress Note, Physician Chief Complaint: Unable to obtain - Current Medication List Current Medications: Active Medications Heparin Sodium (Porcine) (Heparin -) 5,000 unit SQ BID [facility] Last Admin: 01/26/18 09:44 Dose: 5,000 unit Piperacillin Sod/Tazobactam (Sod 2.25 gm/ Dextrose) 50 mls @ 100 mls/hr IVPB Q6H-IV EJ PRN Reason: Protocol Last Admin: 01/26/18 09:44 Dose: 100 mls/hr Dextrose (D5w -) 1,000 mls @ 100 mls/hr IV ASDIR [facility] Last Admin: 01/26/18 08:22 Dose: 100 mls/hr Potassium Chloride (Potassium Chloride 10 Meq Premix Ivpb -) 10 meq in 100 mls @ 100 mls/hr IVPB Q60M [facility] Stop: 01/26/18 11:59 Last Admin: 01/26/18 09:20 Dose: 100 mls/hr Vancomycin HCl 1,000 mg/ (Dextrose) 250 mls @ 166.667 mls/hr IVPB ONCE ONE PRN Reason: Protocol Stop: 01/26/18 11:29 Last Admin: 01/26/18 09:21 Dose: 166.667 mls/hr Insulin Aspart (Novolog Vial Sliding Scale -) 1 vial SQ Q6H EJ PRN Reason: Protocol Last Admin: 01/26/18 06:32 Dose: 2 units Pantoprazole Sodium (Protonix Iv) 40 mg IVPUSH DAILY [facility] Last Admin: 01/26/18 09:44 Dose: 40 mg - Objective Vital Signs: Vital Signs Temperature 36.6 C 01/26/18 10:00 Pulse Rate 76 01/26/18 10:00 Respiratory Rate 31 H 01/26/18 10:00 Blood Pressure 91/44 01/26/18 10:00 O2 Sat by Pulse Oximetry (%) 91 L 01/26/18 08:50 Constitutional: Yes: No Distress, Other (lethargic) Cardiovascular: Yes: Regular Rate and Rhythm. No: Gallop, Murmur, Rub Respiratory: Yes: On Venti-Mask, Rhonchi, Tachypnea. No: Regular, CTA Bilaterally, Rales, Wheezes Gastrointestinal: Yes: Normal Bowel Sounds, Soft. No: Distention, Tenderness Extremities: Yes: WNL Edema: No Labs: CBC, BMP 01/26/18 05:25 01/26/18 05:25 INR, PTT INR 1.59 (0.82-1.09) H 01/23/18 16:44 Problem List - Problems (1) UTI (urinary tract infection) Code(s): N39.0 - URINARY TRACT INFECTION, SITE NOT SPECIFIED Qualifiers: Urinary tract infection type: acute cystitis Hematuria presence: without hematuria Qualified Code(s): N30.00 - Acute cystitis without hematuria (2) Pneumonia Code(s): J18.9 - PNEUMONIA, UNSPECIFIED ORGANISM (3) AMANDA (acute kidney injury) Code(s): N17.9 - ACUTE KIDNEY FAILURE, UNSPECIFIED (4) Dehydration Code(s): E86.0 - DEHYDRATION (5) Hypernatremia Code(s): E87.0 - HYPEROSMOLALITY AND HYPERNATREMIA (6) Sepsis Code(s): A41.9 - SEPSIS, UNSPECIFIED ORGANISM (7) BPH (benign prostatic hyperplasia) Code(s): N40.0 - BENIGN PROSTATIC HYPERPLASIA WITHOUT LOWER URINRY TRACT SYMP (8) CAD (coronary artery disease) Code(s): I25.10 - ATHSCL HEART DISEASE OF [place] CORONARY ARTERY W/O ANG PCTRS Qualifiers: Coronary Disease-Associated Artery/Lesion type: bypass graft [place] vs. transplanted heart: [place] heart Associated angina: without angina Qualified Code(s): I25.810 - Atherosclerosis of coronary artery bypass graft(s) without angina pectoris (9) DM (diabetes mellitus) Code(s): E11.9 - TYPE 2 DIABETES MELLITUS WITHOUT COMPLICATIONS Qualifiers: Diabetes mellitus type: type 2 Diabetes mellitus ferry terminal agent insulin use: without ferry terminal agent use (10) Acute metabolic encephalopathy Code(s): G93.41 - METABOLIC ENCEPHALOPATHY (11) HTN (hypertension) Code(s): I10 - ESSENTIAL (PRIMARY) HYPERTENSION Qualifiers: Hypertension type: essential hypertension Qualified Code(s): I10 - Essential (primary) hypertension (12) Severe protein-calorie malnutrition Code(s): E43 - UNSPECIFIED SEVERE PROTEIN-CALORIE MALNUTRITION Assessment/Plan (1) UTI (urinary tract infection) Assessment/Plan: -first set growing ESBL Klebsiella -second urine culture negative -case d/w ID, first set contaminant Code(s): N39.0 - URINARY TRACT INFECTION, SITE NOT SPECIFIED Qualifiers: Urinary tract infection type: acute cystitis Hematuria presence: without hematuria Qualified Code(s): N30.00 - Acute cystitis without hematuria (2) Pneumonia Assessment/Plan: -continue zosyn per ID -dosing vancomycin by level Code(s): J18.9 - PNEUMONIA, UNSPECIFIED ORGANISM (3) AMANDA (acute kidney injury) Assessment/Plan: -resolved Code(s): N17.9 - ACUTE KIDNEY FAILURE, UNSPECIFIED (4) Dehydration Assessment/Plan: -continue IVF Code(s): E86.0 - DEHYDRATION (5) Hypernatremia Assessment/Plan: -continues to improve -case d/w Dr Bender -continue D5W, add potassium Code(s): E87.0 - HYPEROSMOLALITY AND HYPERNATREMIA (6) Sepsis Assessment/Plan: -ECHO reviewed -second set pending -continue antibiotics per ID Code(s): A41.9 - SEPSIS, UNSPECIFIED ORGANISM (7) BPH (benign prostatic hyperplasia) Assessment/Plan: -urology following Code(s): N40.0 - BENIGN PROSTATIC HYPERPLASIA WITHOUT LOWER URINRY TRACT SYMP (8) CAD (coronary artery disease) Assessment/Plan: -quiescent Code(s): I25.10 - ATHSCL HEART DISEASE OF [place] CORONARY ARTERY W/O ANG PCTRS Qualifiers: Coronary Disease-Associated Artery/Lesion type: bypass graft [place] vs. transplanted heart: [place] heart Associated angina: without angina Qualified Code(s): I25.810 - Atherosclerosis of coronary artery bypass graft(s) without angina pectoris (9) DM (diabetes mellitus) Assessment/Plan: -currently npo -on D5W Code(s): E11.9 - TYPE 2 DIABETES MELLITUS WITHOUT COMPLICATIONS Qualifiers: Diabetes mellitus type: type 2 Diabetes mellitus ferry [place] agent insulin use: without longterm use (10) Acute metabolic encephalopathy Assessment/Plan: -resolved Code(s): G93.41 - METABOLIC ENCEPHALOPATHY (11) HTN (hypertension) Assessment/Plan: -hypotensive -continue IVF Code(s): I10 - ESSENTIAL (PRIMARY) HYPERTENSION Qualifiers: Hypertension type: essential hypertension Qualified Code(s): I10 - Essential (primary) hypertension (12) Severe protein calorie malnutrition -strict npo -family to come in today and discuss GOC Dispo -patient with very poor prognosis 32 minutes spent in critical care time with this patient
--- NOTE | 2018-01-26 11:27 | PN ---
Progress Note, PAPER PRODUCTS INSPECTOR - Note Progress Note: Pt known to me from Evaluation/ MBS 10/2017 with no aspiration demonstrated. Pt was tolerating Dys ground and thin liquid and needed to be fed. He reportedly had difficulty swallowing after that and was placed on thickened liquids. Pt now on NRB. NPO. Selected Entries 01/24/18 01/24/18 01/24/18 05:14 10:09 14:00 Temperature 98.6 F 98.6 F 100 F H 01/24/18 01/24/18 01/25/18 19:00 22:54 02:00 Temperature 99 F 100.8 F H 103.6 F H 01/25/18 01/25/18 01/25/18 06:00 10:00 14:00 Temperature 97.8 F 98.2 F 101.5 F H 01/25/18 01/25/18 01/25/18 18:00 20:00 22:00 Temperature 100.2 F H 97 F L 98.6 F 01/26/18 01/26/18 01/26/18 02:00 06:00 10:00 Temperature 99.2 F 100.9 F H 97.9 F Laboratory Tests 01/23/18 01/24/18 01/25/18 16:44 08:10 05:45 WBC 9.9 12.2 H 11.1 H 01/26/18 05:25 WBC 12.5 H To follow as pt improves to assess swallowing function and initiate PO diet.
--- NOTE | 2018-01-26 12:14 | PN ---
Teaching Attending Note Name of Resident: Jase Herron ATTENDING PHYSICIAN STATEMENT I saw and evaluated the patient. I reviewed the resident's note and discussed the case with the resident. I agree with the resident's findings and plan as documented. SUBJECTIVE: Patient seen and examined in the ICU. Awake and interactive on 100% NRBM. Appears weak. Confused. Intake & Output 01/23/18 01/24/18 01/25/18 01/26/18 23:59 23:59 23:59 23:59 Intake Total 2525 2460 2790 2050 Output Total 25 1700 700 Balance 2500 2460 1090 1350 Weight 90 lb 110 lb 6.4 oz 111 lb 113 lb 14.4 oz Last Vital Signs Temp Pulse Resp BP Pulse Ox 97.9 F 86 24 94/39 91 L 01/26/18 10:00 01/26/18 12:00 01/26/18 12:00 01/26/18 12:00 01/26/18 08:50 Active Medications Heparin Sodium (Porcine) (Heparin -) 5,000 unit SQ BID [facility] Last Admin: 01/26/18 09:44 Dose: 5,000 unit Piperacillin Sod/Tazobactam (Sod 2.25 gm/ Dextrose) 50 mls @ 100 mls/hr IVPB Q6H-IV EJ PRN Reason: Protocol Last Admin: 01/26/18 09:44 Dose: 100 mls/hr Dextrose (D5w -) 1,000 mls @ 100 mls/hr IV ASDIR [facility] Last Admin: 01/26/18 08:22 Dose: 100 mls/hr Insulin Aspart (Novolog Vial Sliding Scale -) 1 vial SQ Q6H EJ PRN Reason: Protocol Last Admin: 01/26/18 06:32 Dose: 2 units Pantoprazole Sodium (Protonix Iv) 40 mg IVPUSH DAILY [facility] Last Admin: 01/26/18 09:44 Dose: 40 mg GEN: Elderly, cachectic confused, weak appearing HEENT:Dry MM, (-) Icterus NECK: No JVD No Bruit CHEST: few scattered rhonchi CVS: S1S2, (-) murmur ABD: (+) BS, NT, ND EXT and Back: Stage 2-3 Sacral Decubitus, (-) edema FIELD SALES 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: non-focal, confused, moving extremities Labs: Laboratory Results - last 24 hr 01/25/18 01/25/18 01/26/18 14:20 14:59 05:25 WBC RBC Hgb Hct MCV MCH MCHC RDW Plt Count MPV Sodium 160 H Potassium 3.5 Chloride 129 H Carbon Dioxide 26 Anion Gap 5 L BUN 32 H Creatinine 1.2 POC Glucometer 115.15806 Random Glucose 87 D Calcium 7.1 L Magnesium Albumin Random Vancomycin 10.571 01/26/18 01/26/18 01/26/18 05:25 05:25 08:00 WBC 12.5 H RBC 4.04 Hgb 11.0 L D Hct 33.6 L MCV 83.1 MCH 27.2 MCHC 32.8 RDW 18.3 H Plt Count 139 MPV 11.3 H Sodium 156 H Potassium 2.7 L* D Chloride 126 H Carbon Dioxide 23 Anion Gap 7 L BUN 25 H D Creatinine 1.0 POC Glucometer Random Glucose 136 H D Calcium 7.0 L Magnesium 1.9 Albumin Random Vancomycin 01/26/18 08:00 WBC RBC Hgb Hct MCV MCH MCHC RDW Plt Count MPV Sodium Potassium Chloride Carbon Dioxide Anion Gap BUN Creatinine POC Glucometer Random Glucose Calcium Magnesium Albumin 1.6 L Random Vancomycin Problem List - Problems (1) Sepsis Assessment/Plan: Code(s): A41.9 - SEPSIS, UNSPECIFIED ORGANISM (2) Hypernatremia Assessment/Plan: Code(s): E87.0 - HYPEROSMOLALITY AND HYPERNATREMIA (3) UTI (urinary tract infection) Assessment/Plan: Code(s): N39.0 - URINARY TRACT INFECTION, SITE NOT SPECIFIED Qualifiers: Urinary tract infection type: acute cystitis Hematuria presence: without hematuria Qualified Code(s): N30.00 - Acute cystitis without hematuria (4) Acute metabolic encephalopathy Assessment/Plan: Code(s): G93.41 - METABOLIC ENCEPHALOPATHY (5) CAD (coronary artery disease) Assessment/Plan: Code(s): I25.10 - ATHSCL HEART DISEASE OF [place] CORONARY ARTERY W/O ANG PCTRS Qualifiers: Coronary Disease-Associated Artery/Lesion type: bypass graft [place] vs. transplanted heart: [place] heart Associated angina: without angina Qualified Code(s): I25.810 - Atherosclerosis of coronary artery bypass graft(s) without angina pectoris (6) Hemiparesis Assessment/Plan: Code(s): G81.90 - HEMIPLEGIA, UNSPECIFIED AFFECTING UNSPECIFIED SIDE Qualifiers: Cerebrovascular disease type: nontraumatic intracerebral hemorrhage (7) HTN (hypertension) Assessment/Plan: Code(s): I10 - ESSENTIAL (PRIMARY) HYPERTENSION Qualifiers: Hypertension type: essential hypertension Qualified Code(s): I10 - Essential (primary) hypertension (8) Acute kidney injury superimposed on CKD Assessment/Plan: Code(s): N17.9 - ACUTE KIDNEY FAILURE, UNSPECIFIED; N18.9 - CHRONIC KIDNEY DISEASE, UNSPECIFIED (9) Decubital ulcer Assessment/Plan: Code(s): L89.90 - PRESSURE ULCER OF UNSPECIFIED SITE, UNSPECIFIED STAGE PLAN: Decrease O2 as needed ABX per ID Strict I&O Aspiration precautions Family meeting for GOC DNR/DNI Dr Benson Critical care time spent in reviewing chart, evaluating patient and formulating plan - 36 minutes.
--- NOTE | 2018-01-26 12:33 | PN ---
Progress Note, Physician History of Present Illness: Pt seen and examined at bedside. He is awake and appears comfortable. He remains in the ICU. - Current Medication List Current Medications: Active Medications Heparin Sodium (Porcine) (Heparin -) 5,000 unit SQ BID EJ Last Admin: 01/26/18 09:44 Dose: 5,000 unit Piperacillin Sod/Tazobactam (Sod 2.25 gm/ Dextrose) 50 mls @ 100 mls/hr IVPB Q6H-IV EJ PRN Reason: Protocol Last Admin: 01/26/18 09:44 Dose: 100 mls/hr Dextrose (D5w -) 1,000 mls @ 100 mls/hr IV ASDIR EJ Last Admin: 01/26/18 08:22 Dose: 100 mls/hr Insulin Aspart (Novolog Vial Sliding Scale -) 1 vial SQ Q6H EJ PRN Reason: Protocol Last Admin: 01/26/18 06:32 Dose: 2 units Pantoprazole Sodium (Protonix Iv) 40 mg IVPUSH DAILY [facility] Last Admin: 01/26/18 09:44 Dose: 40 mg - Objective Vital Signs: Vital Signs Temperature 97.9 F 01/26/18 10:00 Pulse Rate 86 01/26/18 12:00 Respiratory Rate 24 01/26/18 12:00 Blood Pressure 94/39 01/26/18 12:00 O2 Sat by Pulse Oximetry (%) 91 L 01/26/18 08:50 Constitutional: Yes: Calm Eyes: Yes: Conjunctiva Clear HENT: Yes: Atraumatic Cardiovascular: Yes: S1, S2 Respiratory: Yes: On Venti-Mask Gastrointestinal: Yes: Soft Genitourinary: Yes: [place] Present Musculoskeletal: Yes: Muscle Weakness Edema: No Neurological: Yes: Confusion Labs: CBC, BMP 01/26/18 05:25 01/26/18 05:25 INR, PTT INR 1.59 (0.82-1.09) H 01/23/18 16:44 - ....Imaging Chest X-ray: Report Reviewed Problem List - Problems (1) Hypernatremia Code(s): E87.0 - HYPEROSMOLALITY AND HYPERNATREMIA (2) Dehydration Code(s): E86.0 - DEHYDRATION Assessment/Plan Current Medications Generic Name Dose Route Start Last Admin Trade Name Freq PRN Reason Stop Dose Admin Heparin Sodium (Porcine) 5,000 unit 01/24/18 22:00 01/25/18 09:52 Heparin - SQ 5,000 unit BID EJ Administration Piperacillin Sod/Tazobactam 50 mls @ 100 mls/hr 01/24/18 11:30 01/25/18 15:06 Sod 2.25 gm/ Dextrose IVPB 100 mls/hr Q6H-IV EJ Administration Protocol Dextrose 1,000 mls @ 100 mls/hr 01/24/18 18:34 01/24/18 18:52 D5w - IV 100 mls/hr ASDIR EJ Administration Insulin Aspart 1 vial 01/23/18 19:30 01/25/18 15:00 Novolog Vial Sliding Scale - SQ Not Given Q6H EJ Protocol Pantoprazole Sodium 40 mg 01/24/18 13:15 01/25/18 09:52 Protonix Iv IVPUSH 40 mg DAILY EJ Administration IMPRESSION 1. hypernatremia 2. DM 3. change in mental status 4. decreased PO intake 5. malnutrition 6. hx hydronephrosis 7. hypotension requiring multiple fluid boluses 8. hemiparesis 9. AMANDA improving 10. severe dehydration 11. hypokalemia Plan - renal function is improving - replace potassium - add potassium to d5w - mag level checked - repeat potassium level - hypernatremia likely from decreased free water intake - will follow Dr Abraham
[2018-01-26] MEDS ORDERED: DEXTROSE 5%-WATER - 50 ML IVPB ONE ×2 (14:25→21:05)
[2018-01-26] MEDS: POTASSIUM CHLORIDE 10 MEQ in DEXTROSE 5%-WATER - 1,000 ML IVPB SCH ×2 (15:38→23:47)
--- NOTE | 2018-01-26 16:32 | PN ---
Progress Note, Physician History of Present Illness: Infectious Disease Follow up: Patient seen and examined at bedside. Patient more lethargic today. ICU team attempted to wean him off of NRB this AM, but was unable to. - Current Medication List Current Medications: Active Medications Heparin Sodium (Porcine) (Heparin -) 5,000 unit SQ BID REPLACED BY [facility] Last Admin: 01/26/18 09:44 Dose: 5,000 unit Piperacillin Sod/Tazobactam (Sod 2.25 gm/ Dextrose) 50 mls @ 100 mls/hr IVPB Q6H-IV EJ PRN Reason: Protocol Last Admin: 01/26/18 14:31 Dose: 100 mls/hr Potassium Chloride 10 meq/ (Dextrose) 1,005 mls @ 100 mls/hr IVPB Q10H EJ Last Admin: 01/26/18 15:38 Dose: 100 mls/hr Vancomycin HCl 1,000 mg/ (Dextrose) 250 mls @ 200 mls/hr IVPB Q24H EJ PRN Reason: Protocol Insulin Aspart (Novolog Vial Sliding Scale -) 1 vial SQ Q6H EJ PRN Reason: Protocol Last Admin: 01/26/18 14:38 Dose: Not Given Pantoprazole Sodium (Protonix Iv) 40 mg IVPUSH DAILY EJ Last Admin: 01/26/18 09:44 Dose: 40 mg - Objective Vital Signs: Vital Signs Temperature 97.9 F 01/26/18 10:00 Pulse Rate 104 H 01/26/18 14:00 Respiratory Rate 39 H 01/26/18 14:00 Blood Pressure 81/42 01/26/18 14:00 O2 Sat by Pulse Oximetry (%) 91 L 01/26/18 08:50 Constitutional: Yes: No Distress, Calm Cardiovascular: Yes: Regular Rate and Rhythm, S1, S2. No: JVD, Gallop, Murmur, Rub Respiratory: Yes: Regular, Other (crackles at the bases) Gastrointestinal: Yes: Normal Bowel Sounds, Soft Labs: CBC, BMP 01/26/18 05:25 01/26/18 05:25 INR, PTT INR 1.59 (0.82-1.09) H 01/23/18 16:44 Assessment/Plan The patient is an 87 yo m w/ PMH HTN, DM, dementia and BPH w/ obstructive uropathy & chronic indwelling padron admitted for the treatment of lethargy and SOB. #Sepsis 2/2 UTI vs pulmonary source -Bcx growing gram negative cocci in clusters in 2 bottles; RPT NGTD -RPT UCx no growth -will continue with Zosyn (renally dosed) 2.25 q6h -will start vancomycin 1g daily as renal fxn improved. -urine for PNA antigens -echo shows normal EF and Grad I diastolic dysfunction
--- NOTE | 2018-01-26 18:11 | PN ---
Progress Note (short form) - Note Progress Note: Discussed goals of care with patient's son. Explained options of PEG tube placement for nutrition and also the possibility of aspiration with PEG tube. Also discussed option of comfort measures. Patient's son agrees for comfort measures starting TOMORROW at 2pm when his sister is available to be at bedside. For now, patient's son and daughter are requesting blood draws to be held at this time. I spoke with daughter on the phone. Will hold blood draws.
[2018-01-27] MEDS: INSULIN SLIDING SCALE (NOVOLOG) 1 VIAL SQ SCH ×2 (01:00→06:33)
[2018-01-27] MEDS: PIPERACILLIN/TAZOB 2.25 GM 2.25 GM in DEXTROSE 5%-WATER - 50 ML IVPB SCH ×4 (03:00→21:07)
--- NOTE | 2018-01-27 07:12 | PN ---
Progress Note (short form) - Note Progress Note: Yest: Conversation w/ surrogate (son). Start comfort care this afternoon. S MAPs 50s overnight. Still hypoxic 70s on 100% NRB No more blood draws tiarra. O: Vital Signs Period Temp Pulse Resp BP Sys/Zamudio Pulse Ox Last 24 Hr 97.8 F-103.6 F 67-96 17-79 83-120/36-91 90-95 GEN: Awake, alert, on NRB, weak appearing HEENT: PERRLA, EOMi, no JVD CV: S1, S2, RRR LUNG: CTABL bilateral crackles ABD: Soft, NT, ND MSK: No edema, no erythema, +2 pulses NEURO: CN 2-12 grossly intact, weak throughout A/P: 87yo M with obstructive uropathy w/ indwelling padron, advanced dementia was brought to ER with respiratory distress and confusion, found to be in septic shock. Family refused central line. DNR/DNI # Acute metabolic encephalopathy -- Likely multifactorial from septic shock and hyperNa. CT scan neg. # Malnutrition -- Has not been eating well at home, has since been made NPO in the hospital due to aspiration risk. Family does not want aggressive measures. Comfort care this afternoon. # FEN/Ppx -- D5 w/ 10meq K@50cc/hr, NPO, HSQ bid # Dispo -- Comfort care to start this afternoon. No blood draws tiarra. Jase Herron MD - [id number] Resident
[2018-01-27] MEDS ORDERED: DEXTROSE 5%-WATER - 50 ML IVPB ONE ×3 (09:22→21:01)
[2018-01-27] MEDS ORDERED: PIPERACILLIN/TAZOBACTAM 2.25 GM VIAL IVPB ONE ×3 (09:22→21:01)
--- NOTE | 2018-01-27 09:53 | PN ---
Progress Note, Physician History of Present Illness: Infectious Disease Follow up: Patient seen and examined at bedside. Patient more lethargic today. Family refusing blood draws this am; patient to be made comfort care this afternoon. - Current Medication List Current Medications: Active Medications Heparin Sodium (Porcine) (Heparin -) 5,000 unit SQ BID [facility] Last Admin: 01/26/18 21:13 Dose: 5,000 unit Piperacillin Sod/Tazobactam (Sod 2.25 gm/ Dextrose) 50 mls @ 100 mls/hr IVPB Q6H-IV EJ PRN Reason: Protocol Last Admin: 01/27/18 03:00 Dose: 100 mls/hr Potassium Chloride 10 meq/ (Dextrose) 1,005 mls @ 100 mls/hr IVPB Q10H EJ Last Admin: 01/26/18 23:47 Dose: Not Given Vancomycin HCl 1,000 mg/ (Dextrose) 250 mls @ 200 mls/hr IVPB Q24H EJ PRN Reason: Protocol Insulin Aspart (Novolog Vial Sliding Scale -) 1 vial SQ Q6H EJ PRN Reason: Protocol Last Admin: 01/27/18 06:33 Dose: Not Given Pantoprazole Sodium (Protonix Iv) 40 mg IVPUSH DAILY EJ Last Admin: 01/26/18 09:44 Dose: 40 mg - Objective Vital Signs: Vital Signs Temperature 98.6 F 01/27/18 05:52 Pulse Rate 81 01/27/18 08:00 Respiratory Rate 29 H 01/27/18 08:00 Blood Pressure 89/36 01/27/18 08:00 O2 Sat by Pulse Oximetry (%) 91 L 01/26/18 20:00 Constitutional: Yes: No Distress, Calm HENT: Yes: Atraumatic, Normocephalic Neck: Yes: Supple, Trachea Midline Cardiovascular: Yes: Regular Rate and Rhythm, S1, S2. No: JVD, Gallop, Murmur, Rub Respiratory: Yes: Regular, Other (crackles at the bases) Gastrointestinal: Yes: Normal Bowel Sounds, Soft Labs: CBC, BMP 01/26/18 05:25 01/26/18 05:25 INR, PTT INR 1.59 (0.82-1.09) H 01/23/18 16:44 Assessment/Plan The patient is an 87 yo m w/ PMH HTN, DM, dementia and BPH w/ obstructive uropathy & chronic indwelling padron admitted for the treatment of lethargy and SOB. #Sepsis 2/2 UTI vs pulmonary source -Bcx growing gram negative cocci in clusters in 2 bottles; RPT NGTD -RPT UCx no growth; intitial UCx grew ESBL -c/w Zosyn (renally dosed) 2.25 q6h -c/w vancomycin 1g daily as renal fxn improved. -urine for PNA antigens negative -echo shows normal EF and Grad I diastolic dysfunction -patient to be made comfort care once his family arrives.
[2018-01-27] MEDS: POTASSIUM CHLORIDE 10 MEQ in DEXTROSE 5%-WATER - 1,000 ML IVPB SCH ×3 (10:11→21:55)
[2018-01-27] MEDS: PANTOPRAZOLE SODIUM 40 MG VIAL IVPUSH SCH (10:12)
[2018-01-27] MEDS: HEPARIN NA (PORCINE) 5,000 UNITS/ML 1ML VIAL SQ SCH (10:12)
--- NOTE | 2018-01-27 10:21 | PN ---
Progress Note, Physician Chief Complaint: Unable to obtain - Current Medication List Current Medications: Active Medications Heparin Sodium (Porcine) (Heparin -) 5,000 unit SQ BID [facility] Last Admin: 01/26/18 21:13 Dose: 5,000 unit Piperacillin Sod/Tazobactam (Sod 2.25 gm/ Dextrose) 50 mls @ 100 mls/hr IVPB Q6H-IV EJ PRN Reason: Protocol Last Admin: 01/27/18 03:00 Dose: 100 mls/hr Potassium Chloride 10 meq/ (Dextrose) 1,005 mls @ 100 mls/hr IVPB Q10H EJ Last Admin: 01/26/18 23:47 Dose: Not Given Vancomycin HCl 1,000 mg/ (Dextrose) 250 mls @ 200 mls/hr IVPB Q24H EJ PRN Reason: Protocol Insulin Aspart (Novolog Vial Sliding Scale -) 1 vial SQ Q6H EJ PRN Reason: Protocol Last Admin: 01/27/18 06:33 Dose: Not Given Pantoprazole Sodium (Protonix Iv) 40 mg IVPUSH DAILY [facility] Last Admin: 01/26/18 09:44 Dose: 40 mg - Objective Vital Signs: Vital Signs Temperature 37.0 C 01/27/18 10:00 Pulse Rate 79 01/27/18 10:00 Respiratory Rate 26 H 01/27/18 10:00 Blood Pressure 82/39 01/27/18 10:00 O2 Sat by Pulse Oximetry (%) 91 L 01/26/18 20:00 Constitutional: Yes: Other (lethargic) Cardiovascular: Yes: Regular Rate and Rhythm. No: Gallop, Murmur, Rub Respiratory: Yes: On Venti-Mask, Rhonchi, Tachypnea. No: Regular, CTA Bilaterally, Rales, Wheezes Gastrointestinal: Yes: Normal Bowel Sounds, Soft. No: Distention, Tenderness Extremities: Yes: WNL Edema: No Labs: CBC, BMP 01/26/18 05:25 01/26/18 05:25 INR, PTT INR 1.59 (0.82-1.09) H 01/23/18 16:44 Problem List - Problems (1) UTI (urinary tract infection) Code(s): N39.0 - URINARY TRACT INFECTION, SITE NOT SPECIFIED Qualifiers: Urinary tract infection type: acute cystitis Hematuria presence: without hematuria Qualified Code(s): N30.00 - Acute cystitis without hematuria (2) Pneumonia Code(s): J18.9 - PNEUMONIA, UNSPECIFIED ORGANISM (3) AMANDA (acute kidney injury) Code(s): N17.9 - ACUTE KIDNEY FAILURE, UNSPECIFIED (4) Dehydration Code(s): E86.0 - DEHYDRATION (5) Hypernatremia Code(s): E87.0 - HYPEROSMOLALITY AND HYPERNATREMIA (6) Sepsis Code(s): A41.9 - SEPSIS, UNSPECIFIED ORGANISM (7) BPH (benign prostatic hyperplasia) Code(s): N40.0 - BENIGN PROSTATIC HYPERPLASIA WITHOUT LOWER URINRY TRACT SYMP (8) CAD (coronary artery disease) Code(s): I25.10 - ATHSCL HEART DISEASE OF [place] CORONARY ARTERY W/O ANG PCTRS Qualifiers: Coronary Disease-Associated Artery/Lesion type: bypass graft [place] vs. transplanted heart: [place] heart Associated angina: without angina Qualified Code(s): I25.810 - Atherosclerosis of coronary artery bypass graft(s) without angina pectoris (9) DM (diabetes mellitus) Code(s): E11.9 - TYPE 2 DIABETES MELLITUS WITHOUT COMPLICATIONS Qualifiers: Diabetes mellitus type: type 2 Diabetes mellitus nursing home insulin use: without tank terminal gauger use (10) Acute metabolic encephalopathy Code(s): G93.41 - METABOLIC ENCEPHALOPATHY (11) HTN (hypertension) Code(s): I10 - ESSENTIAL (PRIMARY) HYPERTENSION Qualifiers: Hypertension type: essential hypertension Qualified Code(s): I10 - Essential (primary) hypertension (12) Severe protein-calorie malnutrition Code(s): E43 - UNSPECIFIED SEVERE PROTEIN-CALORIE MALNUTRITION Assessment/Plan (1) UTI (urinary tract infection) Code(s): N39.0 - URINARY TRACT INFECTION, SITE NOT SPECIFIED Qualifiers: Urinary tract infection type: acute cystitis Hematuria presence: without hematuria Qualified Code(s): N30.00 - Acute cystitis without hematuria (2) Pneumonia Code(s): J18.9 - PNEUMONIA, UNSPECIFIED ORGANISM (3) AMANDA (acute kidney injury) Code(s): N17.9 - ACUTE KIDNEY FAILURE, UNSPECIFIED (4) Dehydration Code(s): E86.0 - DEHYDRATION (5) Hypernatremia Code(s): E87.0 - HYPEROSMOLALITY AND HYPERNATREMIA (6) Sepsis Code(s): A41.9 - SEPSIS, UNSPECIFIED ORGANISM (7) BPH (benign prostatic hyperplasia) Code(s): N40.0 - BENIGN PROSTATIC HYPERPLASIA WITHOUT LOWER URINRY TRACT SYMP (8) CAD (coronary artery disease) Code(s): I25.10 - ATHSCL HEART DISEASE OF [place] CORONARY ARTERY W/O ANG PCTRS Qualifiers: Coronary Disease-Associated Artery/Lesion type: bypass graft [place] vs. transplanted heart: [place] heart Associated angina: without angina Qualified Code(s): I25.810 - Atherosclerosis of coronary artery bypass graft(s) without angina pectoris (9) DM (diabetes mellitus) Code(s): E11.9 - TYPE 2 DIABETES MELLITUS WITHOUT COMPLICATIONS Qualifiers: Diabetes mellitus type: type 2 Diabetes mellitus nursing home insulin use: without nursing home use (10) Acute metabolic encephalopathy Code(s): G93.41 - METABOLIC ENCEPHALOPATHY (11) HTN (hypertension) Code(s): I10 - ESSENTIAL (PRIMARY) HYPERTENSION Qualifiers: Hypertension type: essential hypertension Qualified Code(s): I10 - Essential (primary) hypertension (12) Severe protein calorie malnutrition Plan -case d/w ICU team -GOC were discussed with family yesterday -d/c lab draws -continue antibiotics and IVF currently -plan to switch to comfort measures only once daughter arrives
--- NOTE | 2018-01-27 11:32 | PN ---
Progress Note, [employer] - Note Progress Note: CXR worse. Per nursing note:md spoke with son wants to stop all labs draw and diagnostic work ups,and spoke on the phone to the daughter. both children want to keep pt comfortable,no ng tube feeding,no labs or diagnostic workups. Pt is NPO, on NRB. Comfort care. Pt is DNI, per EMR.
--- NOTE | 2018-01-27 12:15 | PN ---
Teaching Attending Note Name of Resident: Jase Herron ATTENDING PHYSICIAN STATEMENT I saw and evaluated the patient. I reviewed the resident's note and discussed the case with the resident. I agree with the resident's findings and plan as documented. SUBJECTIVE: Patient seen and examined in the ICU. Lethargic but arouseable. Breathing is non-labored on 100% NRBM. Appears weak. Mildly confused. Intake & Output 01/24/18 01/25/18 01/26/18 01/27/18 23:59 23:59 23:59 23:59 Intake Total 2460 2790 2950 1300 Output Total 1700 1025 300 Balance 2460 1090 1925 1000 Weight 110 lb 6.4 oz 111 lb 113 lb 14.4 oz 116 lb 6.4 oz Last Vital Signs Temp Pulse Resp BP Pulse Ox 98.6 F 79 26 H 82/39 100 01/27/18 10:00 01/27/18 10:00 01/27/18 10:00 01/27/18 10:00 01/27/18 10:00 Active Medications Piperacillin Sod/Tazobactam (Sod 2.25 gm/ Dextrose) 50 mls @ 100 mls/hr IVPB Q6H-IV EJ PRN Reason: Protocol Last Admin: 01/27/18 10:12 Dose: 100 mls/hr Potassium Chloride 10 meq/ (Dextrose) 1,005 mls @ 100 mls/hr IVPB Q10H EJ Last Admin: 01/27/18 10:11 Dose: 100 mls/hr Vancomycin HCl 1,000 mg/ (Dextrose) 250 mls @ 200 mls/hr IVPB Q24H EJ PRN Reason: Protocol Pantoprazole Sodium (Protonix Iv) 40 mg IVPUSH DAILY [facility] Last Admin: 01/27/18 10:12 Dose: 40 mg GEN: Elderly, cachectic confused, weak appearing HEENT:Dry MM, (-) Icterus NECK: No JVD No Bruit CHEST: few scattered rhonchi CVS: S1S2, (-) murmur ABD: (+) BS, NT, ND EXT and Back: Stage 2-3 Sacral Decubitus, (-) edema [employer]: non-focal, confused, moving extremities Labs: Laboratory Results - last 24 hr 01/26/18 14:37 POC Glucometer [id number] Problem List - Problems (1) Sepsis Assessment/Plan: Code(s): A41.9 - SEPSIS, UNSPECIFIED ORGANISM (2) Hypernatremia Assessment/Plan: Code(s): E87.0 - HYPEROSMOLALITY AND HYPERNATREMIA (3) UTI (urinary tract infection) Assessment/Plan: Code(s): N39.0 - URINARY TRACT INFECTION, SITE NOT SPECIFIED Qualifiers: Urinary tract infection type: acute cystitis Hematuria presence: without hematuria Qualified Code(s): N30.00 - Acute cystitis without hematuria (4) Acute metabolic encephalopathy Assessment/Plan: Code(s): G93.41 - METABOLIC ENCEPHALOPATHY (5) CAD (coronary artery disease) Assessment/Plan: Code(s): I25.10 - ATHSCL HEART DISEASE OF [place] CORONARY ARTERY W/O ANG PCTRS Qualifiers: Coronary Disease-Associated Artery/Lesion type: bypass graft [place] vs. transplanted heart: [place] heart Associated angina: without angina Qualified Code(s): I25.810 - Atherosclerosis of coronary artery bypass graft(s) without angina pectoris (6) Hemiparesis Assessment/Plan: Code(s): G81.90 - HEMIPLEGIA, UNSPECIFIED AFFECTING UNSPECIFIED SIDE Qualifiers: Cerebrovascular disease type: nontraumatic intracerebral hemorrhage (7) HTN (hypertension) Assessment/Plan: Code(s): I10 - ESSENTIAL (PRIMARY) HYPERTENSION Qualifiers: Hypertension type: essential hypertension Qualified Code(s): I10 - Essential (primary) hypertension (8) Acute kidney injury superimposed on CKD Assessment/Plan: Code(s): N17.9 - ACUTE KIDNEY FAILURE, UNSPECIFIED; N18.9 - CHRONIC KIDNEY DISEASE, UNSPECIFIED (9) Decubital ulcer Assessment/Plan: Code(s): L89.90 - PRESSURE ULCER OF UNSPECIFIED SITE, UNSPECIFIED STAGE PLAN: Comfort measures O2 as needed to maintain saturation Aspiration precautions DNR/DNI Dr Benson Critical care time spent in reviewing chart, evaluating patient and formulating plan - 36 minutes.
--- NOTE | 2018-01-27 13:56 | PN ---
Progress Note, Physician History of Present Illness: Pt seen and examined at bedside. He is awake and appears comfortable. - Current Medication List Current Medications: Active Medications Piperacillin Sod/Tazobactam (Sod 2.25 gm/ Dextrose) 50 mls @ 100 mls/hr IVPB Q6H-IV EJ PRN Reason: Protocol Last Admin: 01/27/18 10:12 Dose: 100 mls/hr Potassium Chloride 10 meq/ (Dextrose) 1,005 mls @ 100 mls/hr IVPB Q10H EJ Last Admin: 01/27/18 10:11 Dose: 100 mls/hr Vancomycin HCl 1,000 mg/ (Dextrose) 250 mls @ 200 mls/hr IVPB Q24H EJ PRN Reason: Protocol Pantoprazole Sodium (Protonix Iv) 40 mg IVPUSH DAILY [facility] Last Admin: 01/27/18 10:12 Dose: 40 mg - Objective Vital Signs: Vital Signs Temperature 98.6 F 01/27/18 10:00 Pulse Rate 79 01/27/18 12:00 Respiratory Rate 27 H 01/27/18 12:00 Blood Pressure 89/43 01/27/18 12:00 O2 Sat by Pulse Oximetry (%) 100 01/27/18 10:00 Constitutional: Yes: Calm Eyes: Yes: Conjunctiva Clear HENT: Yes: Atraumatic Cardiovascular: Yes: S1, S2 Respiratory: Yes: On Venti-Mask Gastrointestinal: Yes: Soft Genitourinary: Yes: [place] Present Edema: Yes Edema: LLE: Trace, RLE: Trace Neurological: Yes: Confusion Labs: CBC, BMP 01/26/18 05:25 01/26/18 05:25 INR, PTT INR 1.59 (0.82-1.09) H 01/23/18 16:44 Problem List - Problems (1) Hypernatremia Code(s): E87.0 - HYPEROSMOLALITY AND HYPERNATREMIA (2) Dehydration Code(s): E86.0 - DEHYDRATION Assessment/Plan Current Medications Generic Name Dose Route Start Last Admin Trade Name Freq PRN Reason Stop Dose Admin Piperacillin Sod/Tazobactam 50 mls @ 100 mls/hr 01/24/18 11:30 01/27/18 10:12 Sod 2.25 gm/ Dextrose IVPB 100 mls/hr Q6H-IV EJ Administration Protocol Potassium Chloride 10 meq/ 1,005 mls @ 100 mls/hr 01/26/18 12:34 01/27/18 10: 11 Dextrose IVPB 100 mls/hr Q10H EJ Administration Vancomycin HCl 1,000 mg/ 250 mls @ 200 mls/hr 01/27/18 10:00 Dextrose IVPB Q24H EJ Protocol Pantoprazole Sodium 40 mg 01/24/18 13:15 01/27/18 10:12 Protonix Iv IVPUSH 40 mg DAILY [facility] Administration Impression 1. hypernatremia 2. DM 3. change in mental status 4. decreased PO intake 5. malnutrition 6. hx hydronephrosis 7. hypotension requiring multiple fluid boluses 8. hemiparesis 9. AMANDA improving 10. severe dehydration 11. hypokalemia Plan - son is at bedside and care was discussed with him - family has decided for comfort care, they do not want any more bloodwork done - hypernatremia likely from decreased free water intake - will follow PRN Dr Abraham
--- NOTE | 2018-01-27 16:06 | PN ---
Teaching Attending Note Name of Resident: Andres eBrry ATTENDING PHYSICIAN STATEMENT I saw and evaluated the patient. I reviewed the resident's note and discussed the case with the resident. I agree with the resident's findings and plan as documented. SUBJECTIVE: OBJECTIVE: ASSESSMENT AND PLAN: family has elected for comfort care please call back if needed Problem List - Problems (1) Sepsis Code(s): A41.9 - SEPSIS, UNSPECIFIED ORGANISM (2) UTI (urinary tract infection) Code(s): N39.0 - URINARY TRACT INFECTION, SITE NOT SPECIFIED Qualifiers: Urinary tract infection type: acute cystitis Hematuria presence: without hematuria Qualified Code(s): N30.00 - Acute cystitis without hematuria (3) Pneumonia Code(s): J18.9 - PNEUMONIA, UNSPECIFIED ORGANISM (4) AMANDA (acute kidney injury) Code(s): N17.9 - ACUTE KIDNEY FAILURE, UNSPECIFIED (5) Dehydration Code(s): E86.0 - DEHYDRATION
--- NOTE | 2018-01-27 16:37 | PN ---
Progress Note (short form) - Note Progress Note: Family meeting today with Son and Daughter (Young), Vivi (Palliative), and Becky (Nurse). Discussed hospital course and [facility] Family wishes for inpatient hospice, but pt is currently not a candidate. They request morphine IVpush prn for resp distress. If he frequently requires morphine, ok to start morphine ggt If on morphine ggt, is likely eligible for inpatient hospice. Continue abx/fluids until morphine ggt started
[2018-01-27] MEDS: morphine SULFATE 4 MG/ML VIAL IVPUSH PRN (17:22)
[2018-01-27] MEDS ORDERED: morphine SULFATE 4 MG/ML VIAL IVPUSH ONE (18:15)
[2018-01-28] MEDS ORDERED: PIPERACILLIN/TAZOBACTAM 2.25 GM VIAL IVPB ONE ×2 (01:58→08:59)
[2018-01-28] MEDS ORDERED: DEXTROSE 5%-WATER - 50 ML IVPB ONE ×2 (01:59→08:59)
[2018-01-28] MEDS: PIPERACILLIN/TAZOB 2.25 GM 2.25 GM in DEXTROSE 5%-WATER - 50 ML IVPB SCH ×2 (02:00→09:02)
[2018-01-28] MEDS ORDERED: POTASSIUM CHLORIDE 10 MEQ in DEXTROSE 5%-WATER - 1,000 ML IVPB SCH (04:34)
[2018-01-28] MEDS: POTASSIUM CHLORIDE 10 MEQ in DEXTROSE 5%-WATER - 1,000 ML IVPB SCH (05:19)
[2018-01-28 08:24] VITALS: BMI 20.5
[2018-01-28] MEDS: morphine SULFATE 4 MG/ML VIAL IVPUSH PRN (09:24)
[2018-01-28] MEDS: PANTOPRAZOLE SODIUM 40 MG VIAL IVPUSH SCH (09:57)
[2018-01-28] MEDS ORDERED: VANCOMYCIN 1,000 MG in DEXTROSE 5%-WATER - 250 ML IVPB SCH ×2 (10:00→15:00)
[2018-01-28] MEDS ORDERED: HALOPERIDOL LACTATE 5 MG/ML IM PRN (11:59)
[2018-01-28] MEDS ORDERED: SCOPOLAMINE HYDROBROMIDE 1 PATCH PATCH.TD72 TD SCH (12:00)
--- NOTE | 2018-01-28 12:01 | PN ---
Progress Note, Physician Chief Complaint: Unable to obtain - Current Medication List Current Medications: Active Medications Haloperidol (Haldol Injection (Fast Acting) -) 2 mg IM Q4H PRN PRN Reason: AGITATION Morphine Sulfate 100 mg/ (Sodium Chloride) 100 mls @ 0.5 mls/hr IVPB TITR EJ; 0.5 MG/HR PRN Reason: Protocol Lorazepam (Ativan Injection -) 1 mg IVPUSH Q4H PRN PRN Reason: ANXIETY Morphine Sulfate (Morphine Sulfate) 2 mg IVPUSH Q2H PRN PRN Reason: RR >24 Last Admin: 01/28/18 09:24 Dose: 2 mg Pantoprazole Sodium (Protonix Iv) 40 mg IVPUSH DAILY EJ Last Admin: 01/28/18 09:57 Dose: 40 mg Scopolamine HBr (Transderm-Scop -) 1 patch TD Q72H EJ - Objective Vital Signs: Vital Signs Temperature 37.7 C H 01/28/18 06:10 Pulse Rate 87 01/28/18 10:26 Respiratory Rate 28 H 01/28/18 10:26 Blood Pressure 89/44 01/28/18 09:54 O2 Sat by Pulse Oximetry (%) 87 L 01/28/18 10:26 Constitutional: Yes: Other (obtunded) Cardiovascular: Yes: Regular Rate and Rhythm. No: Gallop, Murmur, Rub Respiratory: Yes: On Nasal O2, Tachypnea. No: Regular, CTA Bilaterally, Rhonchi Gastrointestinal: Yes: Normal Bowel Sounds, Soft. No: Distention, Tenderness Extremities: Yes: WNL Edema: No Labs: CBC, BMP 01/26/18 05:25 01/26/18 05:25 INR, PTT INR 1.59 (0.82-1.09) H 01/23/18 16:44 Problem List - Problems (1) UTI (urinary tract infection) Code(s): N39.0 - URINARY TRACT INFECTION, SITE NOT SPECIFIED Qualifiers: Urinary tract infection type: acute cystitis Hematuria presence: without hematuria Qualified Code(s): N30.00 - Acute cystitis without hematuria (2) Pneumonia Code(s): J18.9 - PNEUMONIA, UNSPECIFIED ORGANISM (3) AMANDA (acute kidney injury) Code(s): N17.9 - ACUTE KIDNEY FAILURE, UNSPECIFIED (4) Dehydration Code(s): E86.0 - DEHYDRATION (5) Hypernatremia Code(s): E87.0 - HYPEROSMOLALITY AND HYPERNATREMIA (6) Sepsis Code(s): A41.9 - SEPSIS, UNSPECIFIED ORGANISM (7) BPH (benign prostatic hyperplasia) Code(s): N40.0 - BENIGN PROSTATIC HYPERPLASIA WITHOUT LOWER URINRY TRACT SYMP (8) CAD (coronary artery disease) Code(s): I25.10 - ATHSCL HEART DISEASE OF [place] CORONARY ARTERY W/O ANG PCTRS Qualifiers: Coronary Disease-Associated Artery/Lesion type: bypass graft [place] vs. transplanted heart: [place] heart Associated angina: without angina Qualified Code(s): I25.810 - Atherosclerosis of coronary artery bypass graft(s) without angina pectoris (9) DM (diabetes mellitus) Code(s): E11.9 - TYPE 2 DIABETES MELLITUS WITHOUT COMPLICATIONS Qualifiers: Diabetes mellitus type: type 2 Diabetes mellitus vacuum worker insulin use: without skilled nursing use (10) Acute metabolic encephalopathy Code(s): G93.41 - METABOLIC ENCEPHALOPATHY (11) HTN (hypertension) Code(s): I10 - ESSENTIAL (PRIMARY) HYPERTENSION Qualifiers: Hypertension type: essential hypertension Qualified Code(s): I10 - Essential (primary) hypertension (12) Severe protein-calorie malnutrition Code(s): E43 - UNSPECIFIED SEVERE PROTEIN-CALORIE MALNUTRITION Assessment/Plan (1) UTI (urinary tract infection) Code(s): N39.0 - URINARY TRACT INFECTION, SITE NOT SPECIFIED Qualifiers: Urinary tract infection type: acute cystitis Hematuria presence: without hematuria Qualified Code(s): N30.00 - Acute cystitis without hematuria (2) Pneumonia Code(s): J18.9 - PNEUMONIA, UNSPECIFIED ORGANISM (3) AMANDA (acute kidney injury) Code(s): N17.9 - ACUTE KIDNEY FAILURE, UNSPECIFIED (4) Dehydration Code(s): E86.0 - DEHYDRATION (5) Hypernatremia Code(s): E87.0 - HYPEROSMOLALITY AND HYPERNATREMIA (6) Sepsis Code(s): A41.9 - SEPSIS, UNSPECIFIED ORGANISM (7) BPH (benign prostatic hyperplasia) Code(s): N40.0 - BENIGN PROSTATIC HYPERPLASIA WITHOUT LOWER URINRY TRACT SYMP (8) CAD (coronary artery disease) Code(s): I25.10 - ATHSCL HEART DISEASE OF [place] CORONARY ARTERY W/O ANG PCTRS Qualifiers: Coronary Disease-Associated Artery/Lesion type: bypass graft [place] vs. transplanted heart: [place] heart Associated angina: without angina Qualified Code(s): I25.810 - Atherosclerosis of coronary artery bypass graft(s) without angina pectoris (9) DM (diabetes mellitus) Code(s): E11.9 - TYPE 2 DIABETES MELLITUS WITHOUT COMPLICATIONS Qualifiers: Diabetes mellitus type: type 2 Diabetes mellitus skilled nursing insulin use: without skilled nursing use (10) Acute metabolic encephalopathy Code(s): G93.41 - METABOLIC ENCEPHALOPATHY (11) HTN (hypertension) Code(s): I10 - ESSENTIAL (PRIMARY) HYPERTENSION Qualifiers: Hypertension type: essential hypertension Qualified Code(s): I10 - Essential (primary) hypertension (12) Severe protein calorie malnutrition Plan -patient now on comfort measures -patient with tachypnea, will start low dose morphine gtt -stop antibiotics -will continue IV protonix for comfort -add scopolamine patch -prn IV ativan and IM haldol for agitation
--- NOTE | 2018-01-28 12:05 | PN ---
Physical Exam: SUBJECTIVE: Patient examined @ bedside, responds to verbal and tactile stimuli. Family @ bedside. OBJECTIVE: MAP 50's-60's overnight Hypoxic on 100% NRB Vital Signs Period Temp Pulse Resp BP Sys/Zamudio Pulse Ox Last 24 Hr 98.4 F-99.9 F 77-100 24-36 88-110/38-48 82-88 GENERAL: Alert, on venti-mask HEAD: Normal with no signs of trauma. EYES: PERRL, sclera anicteric, conjunctiva clear. No ptosis. NECK: Trachea midline, supple. LUNGS: Breath sounds equal, clear to auscultation bilaterally, no accessory muscle use, (+) tachypneic HEART: Regular rate and rhythm, S1, S2 without murmur, rub or gallop. Active Medications Generic Name Dose Route Start Last Admin Trade Name Freq PRN Reason Stop Dose Admin Haloperidol 2 mg 01/28/18 11:59 Haldol Injection (Fast Acting) - IM Q4H PRN AGITATION Morphine Sulfate 100 mg/ 100 mls @ 0.5 mls/hr 01/28/18 12:00 Sodium Chloride IVPB TITR EJ Protocol 0.5 MG/HR Lorazepam 1 mg 01/28/18 11:59 Ativan Injection - IVPUSH Q4H PRN ANXIETY Morphine Sulfate 2 mg 01/27/18 16:53 01/28/18 09:24 Morphine Sulfate IVPUSH 2 mg Q2H PRN Administration RR >24 Pantoprazole Sodium 40 mg 01/28/18 10:00 01/28/18 09:57 Protonix Iv IVPUSH 40 mg DAILY EJ Administration Scopolamine HBr 1 patch 01/28/18 12:00 Transderm-Scop - TD Q72H [facility] ASSESSMENT/PLAN: 87 year old male presented with AMS. - On comfort measures as per family on 01/27 - D/c Abx - Continue IV Morphine, scopalamine patch, protonix - DNR/DNI Visit type - Emergency Visit Emergency Visit: No - New Patient This patient is new to me today: Yes Date on this admission: 01/28/18 - Critical Care Critical Care patient: No - Discharge Referral Referred to [facility] Med [facility] No
[2018-01-28] MEDS: MORPHINE 100 MG in SODIUM CHLORIDE 98 ML IVPB SCH (12:58)
--- NOTE | 2018-01-28 13:07 | PN ---
Teaching Attending Note Name of Resident: Sowmya Mondragon ATTENDING PHYSICIAN STATEMENT I saw and evaluated the patient. I reviewed the resident's note and discussed the case with the resident. I agree with the resident's findings and plan as documented. SUBJECTIVE: Patient seen and examined in the ICU. Remains lethargic but arousable. Breathing is non-labored. Appears weak. Mildly confused. Intake & Output 01/25/18 01/26/18 01/27/18 01/28/18 23:59 23:59 23:59 23:59 Intake Total 2790 2950 1350 600 Output Total 1700 1025 900 300 Balance 1090 1925 450 300 Weight 111 lb 113 lb 14.4 oz 116 lb 6.4 oz Last Vital Signs Temp Pulse Resp BP Pulse Ox 99.9 F H 87 28 H 89/44 87 L 01/28/18 06:10 01/28/18 10:26 01/28/18 10:26 01/28/18 09:54 01/28/18 10:26 Active Medications Haloperidol (Haldol Injection (Fast Acting) -) 2 mg IM Q4H PRN PRN Reason: AGITATION Morphine Sulfate 100 mg/ (Sodium Chloride) 100 mls @ 0.5 mls/hr IVPB TITR EJ; 0.5 MG/HR PRN Reason: Protocol Last Admin: 01/28/18 12:58 Dose: 0.5 mg/hr, 0.5 mls/hr Lorazepam (Ativan Injection -) 1 mg IVPUSH Q4H PRN PRN Reason: ANXIETY Morphine Sulfate (Morphine Sulfate) 2 mg IVPUSH Q2H PRN PRN Reason: RR >24 Last Admin: 01/28/18 09:24 Dose: 2 mg Pantoprazole Sodium (Protonix Iv) 40 mg IVPUSH DAILY EJ Last Admin: 01/28/18 09:57 Dose: 40 mg Scopolamine HBr (Transderm-Scop -) 1 patch TD Q72H EJ Last Admin: 01/28/18 12:58 Dose: 1 patch GEN: Elderly, cachectic confused, weak appearing HEENT:Dry MM, (-) Icterus NECK: No JVD No Bruit CHEST: few scattered rhonchi CVS: S1S2, (-) murmur ABD: (+) BS, NT, ND EXT and Back: Stage 2-3 Sacral Decubitus, (-) edema POWDER LOADER: non-focal, confused, moving extremities Problem List - Problems (1) Sepsis Assessment/Plan: Code(s): A41.9 - SEPSIS, UNSPECIFIED ORGANISM (2) Hypernatremia Assessment/Plan: Code(s): E87.0 - HYPEROSMOLALITY AND HYPERNATREMIA (3) UTI (urinary tract infection) Assessment/Plan: Code(s): N39.0 - URINARY TRACT INFECTION, SITE NOT SPECIFIED Qualifiers: Urinary tract infection type: acute cystitis Hematuria presence: without hematuria Qualified Code(s): N30.00 - Acute cystitis without hematuria (4) Acute metabolic encephalopathy Assessment/Plan: Code(s): G93.41 - METABOLIC ENCEPHALOPATHY (5) CAD (coronary artery disease) Assessment/Plan: Code(s): I25.10 - ATHSCL HEART DISEASE OF [place] CORONARY ARTERY W/O ANG PCTRS Qualifiers: Coronary Disease-Associated Artery/Lesion type: bypass graft [place] vs. transplanted heart: [place] heart Associated angina: without angina Qualified Code(s): I25.810 - Atherosclerosis of coronary artery bypass graft(s) without angina pectoris (6) Hemiparesis Assessment/Plan: Code(s): G81.90 - HEMIPLEGIA, UNSPECIFIED AFFECTING UNSPECIFIED SIDE Qualifiers: Cerebrovascular disease type: nontraumatic intracerebral hemorrhage (7) HTN (hypertension) Assessment/Plan: Code(s): I10 - ESSENTIAL (PRIMARY) HYPERTENSION Qualifiers: Hypertension type: essential hypertension Qualified Code(s): I10 - Essential (primary) hypertension (8) Acute kidney injury superimposed on CKD Assessment/Plan: Code(s): N17.9 - ACUTE KIDNEY FAILURE, UNSPECIFIED; N18.9 - CHRONIC KIDNEY DISEASE, UNSPECIFIED (9) Decubital ulcer Assessment/Plan: Code(s): L89.90 - PRESSURE ULCER OF UNSPECIFIED SITE, UNSPECIFIED STAGE PLAN: Comfort measures O2 as needed to maintain saturation Aspiration precautions DNR/DNI Dr Benson
[2018-01-28] MEDS ORDERED: ACETAMINOPHEN 1000 MG/100 ML VIAL (NON FORMULARY) IVPB ONE (19:19)
--- NOTE | 2018-01-29 09:45 | PN ---
Progress Note (short form) - Note Progress Note: Remains lethargic but arousable. Breathing is non-labored. Intake & Output 01/26/18 01/27/18 01/28/18 01/29/18 23:59 23:59 23:59 23:59 Intake Total 2950 1350 1357.5 12.3 Output Total 1025 900 820 100 Balance 1925 450 537.5 -87.7 Weight 113 lb 14.4 oz 116 lb 6.4 oz Last Vital Signs Temp Pulse Resp BP Pulse Ox 97.3 F L 72 19 73/30 90 L 01/29/18 04:55 01/29/18 02:00 01/29/18 09:00 01/29/18 04:55 01/29/18 09:00 Active Medications Haloperidol (Haldol Injection (Fast Acting) -) 2 mg IM Q4H PRN PRN Reason: AGITATION Morphine Sulfate 100 mg/ (Sodium Chloride) 100 mls @ 0.5 mls/hr IVPB TITR EJ; 0.5 MG/HR PRN Reason: Protocol Last Titration: 01/28/18 19:00 Dose: 1.5 mg/hr, 1.5 mls/hr Lorazepam (Ativan Injection -) 1 mg IVPUSH Q4H PRN PRN Reason: ANXIETY Morphine Sulfate (Morphine Sulfate) 2 mg IVPUSH Q2H PRN PRN Reason: RR >24 Last Admin: 01/28/18 09:24 Dose: 2 mg Pantoprazole Sodium (Protonix Iv) 40 mg IVPUSH DAILY EJ Last Admin: 01/28/18 09:57 Dose: 40 mg Scopolamine HBr (Transderm-Scop -) 1 patch TD Q72H EJ Last Admin: 01/28/18 12:58 Dose: 1 patch GEN: Elderly, cachectic confused, weak appearing HEENT:Dry MM, (-) Icterus NECK: No JVD No Bruit CHEST: few scattered rhonchi CVS: S1S2, (-) murmur ABD: (+) BS, NT, ND EXT and Back: Stage 2-3 Sacral Decubitus, (-) edema MANAGER OF CORPORATE: confused Problem List - Problems (1) Sepsis Assessment/Plan: Code(s): A41.9 - SEPSIS, UNSPECIFIED ORGANISM (2) Hypernatremia Assessment/Plan: Code(s): E87.0 - HYPEROSMOLALITY AND HYPERNATREMIA (3) UTI (urinary tract infection) Assessment/Plan: Code(s): N39.0 - URINARY TRACT INFECTION, SITE NOT SPECIFIED Qualifiers: Urinary tract infection type: acute cystitis Hematuria presence: without hematuria Qualified Code(s): N30.00 - Acute cystitis without hematuria (4) Acute metabolic encephalopathy Assessment/Plan: Code(s): G93.41 - METABOLIC ENCEPHALOPATHY (5) CAD (coronary artery disease) Assessment/Plan: Code(s): I25.10 - ATHSCL HEART DISEASE OF [place] CORONARY ARTERY W/O ANG PCTRS Qualifiers: Coronary Disease-Associated Artery/Lesion type: bypass graft [place] vs. transplanted heart: [place] heart Associated angina: without angina Qualified Code(s): I25.810 - Atherosclerosis of coronary artery bypass graft(s) without angina pectoris (6) Hemiparesis Assessment/Plan: Code(s): G81.90 - HEMIPLEGIA, UNSPECIFIED AFFECTING UNSPECIFIED SIDE Qualifiers: Cerebrovascular disease type: nontraumatic intracerebral hemorrhage (7) HTN (hypertension) Assessment/Plan: Code(s): I10 - ESSENTIAL (PRIMARY) HYPERTENSION Qualifiers: Hypertension type: essential hypertension Qualified Code(s): I10 - Essential (primary) hypertension (8) Acute kidney injury superimposed on CKD Assessment/Plan: Code(s): N17.9 - ACUTE KIDNEY FAILURE, UNSPECIFIED; N18.9 - CHRONIC KIDNEY DISEASE, UNSPECIFIED (9) Decubital ulcer Assessment/Plan: Code(s): L89.90 - PRESSURE ULCER OF UNSPECIFIED SITE, UNSPECIFIED STAGE PLAN: Comfort measures O2 as needed to maintain saturation Aspiration precautions DNR/DNI Dr Benson
[2018-01-29] MEDS: PANTOPRAZOLE SODIUM 40 MG VIAL IVPUSH SCH (11:05)
--- NOTE | 2018-01-29 15:34 | PN ---
Progress Note (short form) - Note Progress Note: resting comfortable Current Medications Generic Name Dose Route Start Last Admin Trade Name Freq PRN Reason Stop Dose Admin Haloperidol 2 mg 01/28/18 11:59 Haldol Injection (Fast Acting) - IM Q4H PRN AGITATION Morphine Sulfate 100 mg/ 100 mls @ 0.5 mls/hr 01/28/18 12:00 01/29/18 11:11 Sodium Chloride IVPB 2.5 mg/hr TITR EJ 2.5 mls/hr Protocol Titration 0.5 MG/HR Lorazepam 1 mg 01/28/18 11:59 Ativan Injection - IVPUSH Q4H PRN ANXIETY Morphine Sulfate 2 mg 01/27/18 16:53 01/28/18 09:24 Morphine Sulfate IVPUSH 2 mg Q2H PRN Administration RR >24 Scopolamine HBr 1 patch 01/28/18 12:00 01/28/18 12:58 Transderm-Scop - TD 1 patch Q72H EJ Administration Last Vital Signs Temp Pulse Resp BP Pulse Ox 97.4 F L 80 18 79/50 90 L 01/29/18 15:21 01/29/18 15:21 01/29/18 15:21 01/29/18 15:21 01/29/18 09:00 General lethargic CV S1 S2 RRR Lungs CTA anteriorly A/P 87 yrs old man DNR/DNI , HTN, BPH obstructive uropathy indwelling catheter, T2DM , advanced Dementia, CVA with Residual weakness and CAD presented to the ER with acute metabolic encephalopathy from sepsis and hypernatremia was being treated in the ICU. On 01/27 family made patient comfort measures 1. Acute metabolic encephalopathy- now on comfort measures. morphine ggt, ativan prn, scopolamine. supplemental oxygen. follow protocol. currently being evaluated for hospice 2. spoke with son present at bedside. emotional support given. all questions answered Visit type - Emergency Visit Emergency Visit: Yes ED Registration Date: 01/23/18 Care time: The patient presented to the Emergency Department on the above date and was hospitalized for further evaluation of their emergent condition. - New Patient This patient is new to me today: No - Critical Care Critical Care patient: No - Discharge Referral Referred to [facility] Med [facility].: No
[2018-01-30] MEDS: MORPHINE 100 MG in SODIUM CHLORIDE 98 ML IVPB SCH ×3 (02:07→14:14)
--- NOTE | 2018-01-30 10:32 | PN ---
Physical Exam: SUBJECTIVE: Patient seen and examined. He is unresponsive and appears comfortable. OBJECTIVE: Vital Signs Period Temp Pulse Resp BP Sys/Zamudio Pulse Ox Last 24 Hr 97.0 F-97.6 F 77-93 15-18 79-99/44-63 96 GENERAL: Unresponsive. LUNGS: Scattered rhonchi. HEART: Regular rate and rhythm, S1, S2 without murmur, rub or gallop. ABDOMEN: Soft, nondistended, normoactive bowel sounds. EXTREMITIES: 2+ pulses, warm, well-perfused, no edema. Laboratory Results - last 24 hr 01/25/18 01/26/18 01/26/18 21:18 01:38 06:11 POC Glucometer 144.21277 160.38189 160.78855 01/27/18 05:44 POC Glucometer 149.27337 Active Medications Generic Name Dose Route Start Last Admin Trade Name Freq PRN Reason Stop Dose Admin Haloperidol 2 mg 01/28/18 11:59 Haldol Injection (Fast Acting) - IM Q4H PRN AGITATION Morphine Sulfate 100 mg/ 100 mls @ 0.5 mls/hr 01/28/18 12:00 01/30/18 02:14 Sodium Chloride IVPB 2.5 mg/hr TITR EJ 2.5 mls/hr Protocol Administration 0.5 MG/HR Lorazepam 1 mg 01/28/18 11:59 Ativan Injection - IVPUSH Q4H PRN ANXIETY Morphine Sulfate 2 mg 01/27/18 16:53 01/28/18 09:24 Morphine Sulfate IVPUSH 2 mg Q2H PRN Administration RR >24 Scopolamine HBr 1 patch 01/28/18 12:00 01/28/18 12:58 Transderm-Scop - TD 1 patch Q72H EJ Administration ASSESSMENT/PLAN: This is an 87 year old man with a history of HTN, BPH, obstructive uropathy with indwelling catheter, type 2 DM, dementia, CVA with right hemiparesis, CAD who presented to the ED with confusion and lethargy. 1. Acute metabolic encephalopathy secondary to sepsis and hypernatremia 2. Sepsis secondary to UTI 3. Hypernatremia 4. Acute kidney injury 5. Stage CKD 6. CAD 7. HTN 8. BPH with obstructive uropathy 9. Type 2 DM 10. Dementia 11. 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 - New Patient This patient is new to me today: Yes Date on this admission: 01/30/18 - Critical Care Critical Care patient: No - Discharge Referral Referred to [facility] Med [facility].: No
[2018-01-31 00:40] VITALS: PULSE 95
[2018-01-31] MEDS: MORPHINE 100 MG in SODIUM CHLORIDE 98 ML IVPB SCH (02:20)
[2018-01-31 06:24] VITALS: BP 88/37; TEMP 98.1
--- NOTE | 2018-01-31 09:28 | PN ---
Progress Note (short form) - Note Progress Note: Called to bedside to assess Mr Blanchard. No spontaneous respirations, no heartbeat auscultated, no carotid or radial pulse felt. Patient pronounced at 0926. Problem List - Problems (1) UTI (urinary tract infection) Code(s): N39.0 - URINARY TRACT INFECTION, SITE NOT SPECIFIED Qualifiers: Urinary tract infection type: acute cystitis Hematuria presence: without hematuria Qualified Code(s): N30.00 - Acute cystitis without hematuria (2) Pneumonia Code(s): J18.9 - PNEUMONIA, UNSPECIFIED ORGANISM (3) AMANDA (acute kidney injury) Code(s): N17.9 - ACUTE KIDNEY FAILURE, UNSPECIFIED (4) Dehydration Code(s): E86.0 - DEHYDRATION (5) Hypernatremia Code(s): E87.0 - HYPEROSMOLALITY AND HYPERNATREMIA (6) Sepsis Code(s): A41.9 - SEPSIS, UNSPECIFIED ORGANISM (7) BPH (benign prostatic hyperplasia) Code(s): N40.0 - BENIGN PROSTATIC HYPERPLASIA WITHOUT LOWER URINRY TRACT SYMP (8) CAD (coronary artery disease) Code(s): I25.10 - ATHSCL HEART DISEASE OF [place] CORONARY ARTERY W/O ANG PCTRS Qualifiers: Coronary Disease-Associated Artery/Lesion type: bypass graft [place] vs. 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
--- NOTE | 2018-01-31 11:37 | DS ---
Physical Examination Vital Signs: Vital Signs Temperature 36.7 C 01/31/18 06:22 Pulse Rate 95 H 01/31/18 06:22 Respiratory Rate 15 01/31/18 06:22 Blood Pressure 88/37 01/31/18 06:22 O2 Sat by Pulse Oximetry (%) 93 L 01/30/18 21:00 Labs: CBC, BMP 01/26/18 05:25 01/26/18 05:25 Discharge Summary Reason For Visit: SEPSIS/HYPERNATREMIA/AMANDA Hospital Course: Mr Blanchard is a very pleasant 87 year old male who came in with septic shock secondary to UTI and pneumonia (the pneumonia was most likely aspiration). He was admitted to the ICU and started on broad spectrum antibiotics and IVF. He originally began to improve, however even with full treatment he began to decline again. Speech therapy was consulted and patient needed to be strict npo for aspiration risk. Conversation was had with family and it was decided to make him comfort measures/inpatient hospice. His medication regimen was transferred to comfort measures only (morphine gtt, scopolamine patch, IV protonix, and prn ativan and haldol). He this morning. Condition: Guarded - Instructions Referrals: Elio Cast MD [Primary Care Provider] - Disposition: - Home Medications Comprehensive Discharge Medication List: Ambulatory Orders Aspirin [ASA -] 81 mg PO DAILY 11/05/17 Finasteride [Proscar -] 5 mg PO DAILY 11/05/17 Metformin HCl 500 mg PO BID 11/05/17 Simvastatin 40 mg PO HS 11/05/17 Tamsulosin HCl 0.4 mg PO DAILY 11/05/17 Amlodipine Besylate 10 mg PO DAILY 01/23/18 Metoprolol Tartrate 25 mg PO DAILY 01/23/18
== END 2018-01-31 11:08 | disposition expired | DRG 871 ==
LOC: JER 16:07 → JERBED 18:59 → JICU 01-24 05:01 → J7W 01-29 14:37
PROVIDERS: ADMIT Internal Medicine; ATTEND Internal Medicine
DX: A41.9 Sepsis, unspecified organism (principal); L89.153 Pressure ulcer of sacral region, stage 3; G93.41 Metabolic encephalopathy; E43 Unspecified severe protein-calorie malnutrition; R65.21 Severe sepsis with septic shock; J96.01 Acute respiratory failure with hypoxia; J69.0 Pneumonitis due to inhalation of food and vomit; I69.351 Hemiplegia and hemiparesis following cerebral infarction affecting right dominant side; R64 Cachexia; E87.0 Hyperosmolality and hypernatremia; N17.9 Acute kidney failure, unspecified; N39.0 Urinary tract infection, site not specified; I24.8 Other forms of acute ischemic heart disease; E87.2 Acidosis; N13.30 Unspecified hydronephrosis; E78.5 Hyperlipidemia, unspecified; I25.10 Atherosclerotic heart disease of native coronary artery without angina pectoris; Z95.1 Presence of aortocoronary bypass graft; Z79.84 Long term (current) use of oral hypoglycemic drugs; F03.90 Unspecified dementia, unspecified severity, without behavioral disturbance, psychotic disturbance, mood disturbance, and anxiety; Z66 Do not resuscitate; E86.0 Dehydration; N40.0 Benign prostatic hyperplasia without lower urinary tract symptoms; E87.6 Hypokalemia; Z68.20 Body mass index [BMI] 20.0-20.9, adult; E11.22 Type 2 diabetes mellitus with diabetic chronic kidney disease; I12.9 Hypertensive chronic kidney disease with stage 1 through stage 4 chronic kidney disease, or unspecified chronic kidney disease; N18.3 Chronic kidney disease, stage 3 (moderate)
CPT/HCPCS: 36415; 36600; 70450-TC; 71045-TC-FY; 76775-TC; 80048; 80053; 81003; 81015; 82040; 82375; 82550; 82553; 82803; 82962; 83036; 83050; 83605; 83735; 84100; 84484; 85025; 85027; 85610; 85730; 86850; 86900; 86901; 87040; 87086; 87186; 87899; 93005; 93010; 93306-TC; 99285-25; G0480; J0131; J1644; J7030